=== PATIENT | male | born 1935 | race Caucasian/White ===

== ENCOUNTER → 2016-07-18 | Outpatient (CLI) | payer OTHER | LOC: BHFA 09:30 | PROVIDERS: ATTEND Internal Medicine Cardiovascular Disease | DX: I25.10 Atherosclerotic heart disease of native coronary artery without angina pectoris (principal) | CPT/HCPCS: 78452; 93017; A9500; J2785 ==

== ENCOUNTER → 2016-07-24 | Outpatient (CLI) | payer OTHER | LOC: BHFA 09:15 | PROVIDERS: ATTEND Internal Medicine Cardiovascular Disease | DX: I25.10 Atherosclerotic heart disease of native coronary artery without angina pectoris (principal); R06.00 Dyspnea, unspecified; I10 Essential (primary) hypertension ==

== ENCOUNTER 2018-01-19 15:03 | Inpatient (IN) | payer OTHER ==
--- NOTE | 2018-01-19 15:29 | EDPHY ---
H & P Stated Complaint: low O2 Time Seen by Provider: 01/19/18 15:29 HPI/ROS: CHIEF COMPLAINT: Hypoxemia, right-sided chest pain HISTORY OF PRESENT ILLNESS: The patient is referred to the emergency department for evaluation of hypoxemia, right-sided chest pain and pleuritic cough for the past 5 days. The patient denies prior history of PE or DVT. He does report a history of COPD. He denies fever. He does report a productive cough. He denies asymmetric calf pain or swelling. Past medical history is significant for chronic back pain. The patient is status post spinal fusion. The patient denies any complaints abdominal pain, vomiting or diarrhea. REVIEW OF SYSTEMS: A comprehensive 10 point review of systems is otherwise negative aside from elements mentioned in the history of present illness. Source: Patient Exam Limitations: No limitations - Personal History Current Tetanus/Diphtheria Vaccine: Yes - Medical/Surgical History Hx Asthma: No Hx Chronic Respiratory Disease: No Hx Diabetes: No Hx Cardiac Disease: No Hx Renal Disease: No Hx Cirrhosis: No Hx Alcoholism: No Hx HIV/AIDS: No Hx Splenectomy or Spleen Trauma: No Other PMH: appendectomy, hyperlipidemia, HTN - Social History Smoking Status: Former smoker - Physical Exam Exam: General Appearance: Alert, no distress Eyes: Pupils equal and round no pallor or injection ENT, Mouth: Mucous membranes moist Respiratory: Tachypnea, rhonchorous breath sounds right lung field Cardiovascular: Tachycardic Gastrointestinal: Abdomen is soft and nontender, no masses, bowel sounds normal Neurological: A&O, normal motor function, normal sensory exam, normal cranial nerves Skin: Warm and dry, no rashes Musculoskeletal: Neck is supple nontender Extremities: symmetrical, full range of motion Psychiatric: Patient is oriented X 3, there is no agitation Constitutional: Initial Vital Signs Temperature (C) 37.0 C 01/19/18 15:14 Heart Rate 101 H 01/19/18 15:14 Respiratory Rate 18 01/19/18 15:14 Blood Pressure 131/80 H 01/19/18 15:14 O2 Sat (%) 93 01/19/18 15:14 O2 Delivery Mode Nasal Cannula O2 (L/minute) 1 Allergies/Adverse Reactions: Sulfa (Sulfonamide Antibiotics) Allergy (Mild, Verified 01/19/18 15:17) dizzy Home Medications: Medication Instructions Recorded Aspirin [Aspirin 81mg (OTC)] 05/12/14 Lisinopril [Zestril 2.5 mg (*)] 05/12/14 Simvastatin [Zocor] 05/12/14 Steroid Inhaler 07/07/14 Medical Decision Making ED Course/Re-evaluation: The patient presents the ED for evaluation of several days of pleuritic chest pain and a productive cough. The patient was afebrile upon arrival. The patient was noted to be acutely hypoxemic. The patient had a dense infiltrate noted on his chest x-ray. His D-dimer was elevated. CT pulmonary angiogram demonstrates no evidence of a PE. The patient does have SIRS criteria with leukocytosis and tachycardia. He qualifies for sepsis given his pneumonia. He has no evidence of severe sepsis or septic shock. The patient had an IV established. He received blood cultures x2. The patient will be started on IV Levaquin. The patient will require admission to the hospital. Consultation was made with the hospitalist service at 5:00 p.m.. Differential Diagnosis: Differential diagnosis considered includes pulmonary embolism, pneumonia, bronchitis, sepsis, severe sepsis, septic shock Critical Care Time: Critical care time exclusive of procedures and exclusive of the PA's time was 35 minutes, performed by myself, Jaquan Bianchi MD. The patient presents to the ED with sepsis, pneumonia and hypoxemia. The patient is started on broad- spectrum antibiotics. He will be admitted to the hospital for stabilization and treatment. - Data Points Laboratory Results: Laboratory Results 01/19/18 15:35 01/19/18 15:35 01/19/18 01/19/18 01/19/18 16:15 15:48 15:45 WBC RBC Hgb POC Hgb 15.3 gm/dL gm/dL (13.7-17.5) Hct POC Hct 45 % % (40-51) MCV MCH MCHC RDW Plt Count MPV Neut % (Auto) Lymph % (Auto) [place] % (Auto) Eos % (Auto) Baso % (Auto) Nucleat RBC Rel Count Absolute Neuts (auto) Absolute Lymphs (auto) Absolute Monos (auto) Absolute Eos (auto) Absolute Basos (auto) Absolute Nucleated RBC Immature Gran % Immature Gran # RBC/WBC/PLT Morphology Platelet Estimate PT INR D-Dimer VBG Lactic Acid 1.9 mmol/L mmol/L (0.7-2.1) POC Sodium 139 mEq/L mEq/L (135-145) Sodium POC Potassium 4.2 mEq/L mEq/L (3.3-5.0) Potassium POC Chloride 98 mEq/L mEq/L (97-110) Chloride Carbon Dioxide Anion Gap POC BUN 26 mg/dL H mg/dL (7-23) BUN Creatinine POC Creatinine 1.3 mg/dL mg/dL (0.7-1.3) Estimated GFR Glucose POC Glucose 138 mg/dL H mg/dL (70-100) Calcium POC Troponin I 0.03 ng/mL ng/mL (0.00-0.08) 01/19/18 01/19/18 01/19/18 15:35 15:35 15:35 WBC 21.26 10^3/uL H 10^3/uL (3.80-9.50) RBC 4.28 10^6/uL L 10^6/uL (4.40-6.38) Hgb 13.8 g/dL g/dL (13.7-17.5) POC Hgb Hct 41.2 % % (40.0-51.0) POC Hct MCV 96.3 fL fL (81.5-99.8) MCH 32.2 pg pg (27.9-34.1) MCHC 33.5 g/dL g/dL (32.4-36.7) RDW 12.2 % % (11.5-15.2) Plt Count 404 10^3/uL H 10^3/uL (150-400) MPV 9.6 fL fL (8.7-11.7) Neut % (Auto) 83.6 % H % (39.3-74.2) Lymph % (Auto) 7.2 % L % (15.0-45.0) [place] % (Auto) 7.9 % % (4.5-13.0) Eos % (Auto) 0.2 % L % (0.6-7.6) Baso % (Auto) 0.2 % L % (0.3-1.7) Nucleat RBC Rel Count 0.0 % % (0.0-0.2) Absolute Neuts (auto) 17.77 10^3/uL H 10^3/uL (1.70-6.50) Absolute Lymphs (auto) 1.53 10^3/uL 10^3/uL (1.00-3.00) Absolute Monos (auto) 1.68 10^3/uL H 10^3/uL (0.30-0.80) Absolute Eos (auto) 0.04 10^3/uL 10^3/uL (0.03-0.40) Absolute Basos (auto) 0.04 10^3/uL 10^3/uL (0.02-0.10) Absolute Nucleated RBC 0.00 10^3/uL 10^3/uL (0-0.01) Immature Gran % 0.9 % % (0.0-1.1) Immature Gran # 0.19 10^3/uL H 10^3/uL (0.00-0.10) RBC/WBC/PLT Morphology TNP Platelet Estimate TNP PT 15.5 SEC H SEC (12.0-15.0) INR 1.21 H (0.83-1.16) D-Dimer 2.39 ug/mLFEU H ug/mLFEU (0.00-0.50) VBG Lactic Acid POC Sodium Sodium 138 mEq/L mEq/L (135-145) POC Potassium Potassium 4.4 mEq/L mEq/L (3.3-5.0) POC Chloride Chloride 99 mEq/L mEq/L (97-110) Carbon Dioxide 27 mEq/l mEq/l (22-31) Anion Gap 12 mEq/L mEq/L (8-16) POC BUN BUN 27 mg/dL H mg/dL (7-23) Creatinine 1.2 mg/dL mg/dL (0.7-1.3) POC Creatinine Estimated GFR 58 Glucose 132 mg/dL H mg/dL (70-100) POC Glucose Calcium 9.5 mg/dL mg/dL (8.5-10.4) POC Troponin I Point of Care Test Results: Chemistry 01/19/18 01/19/18 15:48 15:45 POC Sodium 139 mEq/L mEq/L (135-145) POC Potassium 4.2 mEq/L mEq/L (3.3-5.0) POC Chloride 98 mEq/L mEq/L (97-110) POC BUN 26 mg/dL H mg/dL (7-23) POC Creatinine 1.3 mg/dL mg/dL (0.7-1.3) POC Glucose 138 mg/dL H mg/dL (70-100) POC Troponin I 0.03 ng/mL ng/mL (0.00-0.08) ISTAT H&H 01/19/18 15:45 POC Hgb 15.3 gm/dL gm/dL (13.7-17.5) POC Hct 45 % % (40-51) Departure - Departure Disposition: [facility] Inpatient Acute Clinical Impression: Sepsis, Pneumonia Condition: Good Referrals: Rubens Gallegos DO [Primary Care Provider] - As per Instructions
[2018-01-19 15:54] LABS: PLATELET COUNT 404 10^3/uL (150-400)
[2018-01-19 16:04] LABS: INR 1.21 (0.83-1.16); PROTIME(PATIENT) 15.5 SEC (12.0-15.0)
[2018-01-19] MEDS ORDERED: IOPAMIDOL (ISOVUE 370) 100 ML BTL IV ONE (16:06)
[2018-01-19] MEDS ORDERED: ACETAMINOPHEN 325 MG TAB PO PRN (17:31)
[2018-01-19] MEDS ORDERED: ONDANSETRON DISINTEGRATING 4 MG TAB PO PRN (17:31)
[2018-01-19] MEDS ORDERED: ONDANSETRON 4 MG/2 ML VIAL IVP PRN (17:31)
--- NOTE | 2018-01-19 17:36 | PDGENHP ---
History and Physical - Chief Complaint SOB, Cough - History of Present Illness Freeman Mendes is a 82 yo M with a PMhx of HTN, Ulcerative Colitis who presents for cough and SOB. He reports that he started having R sided rib pain on Friday. He then started having productive cough of rust colored sputum with associated SOB. He reports R sided rib pain increased with cough and worsened since onset. He had subjective fevers earlier today. He denies chest pain, edema, lightheadedness, d/c, n/v, urinary changes. History Information - Allergies/Home Medication List Allergies/Adverse Reactions: Sulfa (Sulfonamide Antibiotics) Allergy (Mild, Verified 01/19/18 17:37) dizzy Home Medications: Balsalazide Disodium [Colazal (*)] 2,250 mg PO TID 01/19/18 [Last Taken AM DOSE] Fluticasone/Salmeter 100/50Mcg [Advair 100/50 (*)] 1 puffs IH BID 01/19/18 [ Last Taken 01/19/18] Gabapentin [Neurontin 100 MG (*)] 300 mg PO HS 01/19/18 [Last Taken Unknown] Herbals/Supplements -Info Only 1 ea PO DAILY 01/19/18 [Last Taken Unknown] Lisinopril [Zestril 10 mg (*)] 10 mg PO DAILY 01/19/18 [Last Taken 01/19/18] Multivitamins [Multivitamin (*)] 1 each PO DAILY 01/19/18 [Last Taken Unknown] Ranitidine HCl 150 mg PO DAILY 01/19/18 [Last Taken 01/19/18] Tamsulosin HCl [Flomax 0.4 MG (*)] 0.4 mg PO HS 01/19/18 [Last Taken 01/18/18] Vasculera 1 tab PO DAILY 01/19/18 [Last Taken Unknown] I have personally reviewed and updated: family history, medical history, social history, surgical history - Past Medical History hypertension - Surgical History Additional surgical history: Back surgery - Family History Additional family history: Parents - Social History Smoking Status: Former smoker Review of Systems Review of Systems: ROS: 10pt was reviewed & negative except for what was stated in HPI & below Physical Exam Physical Exam: Temp Pulse Resp BP Pulse Ox 36.8 C 99 19 139/86 H 93 01/19/18 17:30 01/19/18 17:30 01/19/18 17:30 01/19/18 17:30 01/19/18 17:30 O2 (L/minute) 4 Constitutional: no apparent distress Eyes: PERRL Ears, Nose, Mouth, Throat: moist mucous membranes Cardiovascular: tachycardia Respiratory: no respiratory distress, rhonchi Gastrointestinal: normoactive bowel sounds, soft, non-tender abdomen Genitourinary: no bladder tenderness Skin: warm Musculoskeletal: pain with ROM Neurologic: AAOx3 Psychiatric: interacting appropriately Lymph, Heme, Immunologic: No ecchymoses, No petechiae Lab Data & Imaging Review 01/19/18 15:35 01/19/18 15:35 WBC 21.26 10^3/uL (3.80-9.50) H 01/19/18 15:35 RBC 4.28 10^6/uL (4.40-6.38) L 01/19/18 15:35 Hgb 13.8 g/dL (13.7-17.5) 01/19/18 15:35 POC Hgb 15.3 gm/dL (13.7-17.5) 01/19/18 15:45 Hct 41.2 % (40.0-51.0) 01/19/18 15:35 POC Hct 45 % (40-51) 01/19/18 15:45 MCV 96.3 fL (81.5-99.8) 01/19/18 15:35 MCH 32.2 pg (27.9-34.1) 01/19/18 15:35 MCHC 33.5 g/dL (32.4-36.7) 01/19/18 15:35 RDW 12.2 % (11.5-15.2) 01/19/18 15:35 Plt Count 404 10^3/uL (150-400) H 01/19/18 15:35 MPV 9.6 fL (8.7-11.7) 01/19/18 15:35 Neut % (Auto) 83.6 % (39.3-74.2) H 01/19/18 15:35 Lymph % (Auto) 7.2 % (15.0-45.0) L 01/19/18 15:35 [place] % (Auto) 7.9 % (4.5-13.0) 01/19/18 15:35 Eos % (Auto) 0.2 % (0.6-7.6) L 01/19/18 15:35 Baso % (Auto) 0.2 % (0.3-1.7) L 01/19/18 15:35 Nucleat RBC Rel Count 0.0 % (0.0-0.2) 01/19/18 15:35 Absolute Neuts (auto) 17.77 10^3/uL (1.70-6.50) H 01/19/18 15:35 Absolute Lymphs (auto) 1.53 10^3/uL (1.00-3.00) 01/19/18 15:35 Absolute Monos (auto) 1.68 10^3/uL (0.30-0.80) H 01/19/18 15:35 Absolute Eos (auto) 0.04 10^3/uL (0.03-0.40) 01/19/18 15:35 Absolute Basos (auto) 0.04 10^3/uL (0.02-0.10) 01/19/18 15:35 Absolute Nucleated RBC 0.00 10^3/uL (0-0.01) 01/19/18 15:35 Immature Gran % 0.9 % (0.0-1.1) 01/19/18 15:35 Immature Gran # 0.19 10^3/uL (0.00-0.10) H 01/19/18 15:35 RBC/WBC/PLT Morphology TNP 01/19/18 15:35 Platelet Estimate TNP 01/19/18 15:35 PT 15.5 SEC (12.0-15.0) H 01/19/18 15:35 INR 1.21 (0.83-1.16) H 01/19/18 15:35 D-Dimer 2.39 ug/mLFEU (0.00-0.50) H 01/19/18 15:35 VBG Lactic Acid 1.9 mmol/L (0.7-2.1) 01/19/18 16:15 POC Sodium 139 mEq/L (135-145) 01/19/18 15:45 Sodium 138 mEq/L (135-145) 01/19/18 15:35 POC Potassium 4.2 mEq/L (3.3-5.0) 01/19/18 15:45 Potassium 4.4 mEq/L (3.3-5.0) 01/19/18 15:35 POC Chloride 98 mEq/L (97-110) 01/19/18 15:45 Chloride 99 mEq/L (97-110) 01/19/18 15:35 Carbon Dioxide 27 mEq/l (22-31) 01/19/18 15:35 Anion Gap 12 mEq/L (8-16) 01/19/18 15:35 POC BUN 26 mg/dL (7-23) H 01/19/18 15:45 BUN 27 mg/dL (7-23) H 01/19/18 15:35 Creatinine 1.2 mg/dL (0.7-1.3) 01/19/18 15:35 POC Creatinine 1.3 mg/dL (0.7-1.3) 01/19/18 15:45 Estimated GFR 58 01/19/18 15:35 Glucose 132 mg/dL (70-100) H 01/19/18 15:35 POC Glucose 138 mg/dL (70-100) H 01/19/18 15:45 Calcium 9.5 mg/dL (8.5-10.4) 01/19/18 15:35 POC Troponin I 0.03 ng/mL (0.00-0.08) 01/19/18 15:48 Visualized and Interpreted Chest x-ray results: Yes Chest X-Ray results: infiltrate Assessment & Plan Assessment: Sepsis (Acute) - WBC 21, HR 100's on admission - CXR, CT Chest show airspace opacity in RUL - LA 1.9 on admission - Will give 1L NS initially, if no improvement in HR will give 30 cc/ml - S/p IV Levaquin in ED, will continue for now Bacterial PNA - Seen on CXR, CT - Continue Levaquin IV as above - Will order sputum culture - Transition to PO abx when improvement of sepsis COPD - Continue home Advair, Albuterol PRN Chronic LBP - Titrating off of Gabapentin, last dose 300 mg tonight - Tylenol prn for pain HTN - Continue home Lisinopril Ulcerative Colitis - Continue home Balsalazide BPH - Continue home Tamsulosin FEN: 1L IVF ordered, more PRN Ppx: SubQ Heparin Code: FULL Dispo: Admit to Medicine
[2018-01-19] MEDS ORDERED: NS 1,000 ML IV SCH (17:45)
--- NOTE | 2018-01-19 17:47 | CPEKG ---
Test Reason : OPEN Blood Pressure : / mmHG Vent. Rate : 092 BPM Atrial Rate : 093 BPM P-R Int : 163 ms QRS Dur : 078 ms QT Int : 338 ms P-R-T Axes : 053 -01 040 degrees QTc Int : 419 ms Normal sinus rhythm Atrial premature complexes Confirmed by Jaquan Bianchi ([id number]) on 01/19/2018 5:46:08 PM Referred By: Confirmed By:Jaquan Bianchi
[2018-01-19] MEDS ORDERED: GABAPENTIN 300 MG CAP PO SCH (21:00)
[2018-01-19] MEDS: FLUTICASONE/SALMETER 100/50MCG DISKUS IH SCH (21:24)
[2018-01-19] MEDS: BALSALAZIDE DISODIUM 750 MG CAP PO SCH (22:09)
[2018-01-19] MEDS: ASPIRIN 81 MG CHEWABLE TAB PO SCH (22:09)
[2018-01-19] MEDS: TAMSULOSIN HCL 0.4 MG CAP PO SCH (22:10)
[2018-01-19] MEDS: HEPARIN 5,000 UNIT/0.5 ML INJ SC SCH (22:10)
[2018-01-19] MEDS: MELATONIN 3 MG TAB PO SCH (22:39)
[2018-01-20 05:01] LABS: PLATELET COUNT 324 10^3/uL (150-400)
[2018-01-20] MEDS: HEPARIN 5,000 UNIT/0.5 ML INJ SC SCH (06:19)
[2018-01-20] MEDS ORDERED: levOFLOXACIN 500 MG/DEXTROSE 100 ML IV SCH (09:00)
[2018-01-20] MEDS: FAMOTIDINE 20 MG TAB PO SCH (09:10)
[2018-01-20] MEDS: LISINOPRIL 10 MG TAB PO SCH (09:11)
[2018-01-20] MEDS: BALSALAZIDE DISODIUM 750 MG CAP PO SCH ×3 (09:12→21:20)
[2018-01-20] MEDS: PSYLLIUM METAMUCIL 1 PKT PO SCH (09:14)
[2018-01-20] MEDS: FLUTICASONE/SALMETER 100/50MCG DISKUS IH SCH ×2 (09:16→21:19)
--- NOTE | 2018-01-20 09:22 | HOSPPROG ---
Hospitalist Progress Note Assessment/Plan: #Sepsis: from PNA, leukocytosis improved. Neg resp PCR #CAP: Levaquin, cough suppressants #COPD: nebs #HTN: Lisinopril #Chronic LBP #BPH #Weakness: PT/OT #DVT ppx: lovenox #Disp: inpatient admission for abx, PT Subjective: not feeling great. Productive cough still Objective: Vital Signs Temp Pulse Resp BP Pulse Ox 37.1 C 93 24 H 139/73 H 85 L 01/20/18 08:09 01/20/18 08:09 01/20/18 08:09 01/20/18 09:11 01/20/18 08:09 Microbiology 01/20/18 02:56 - Final Sputum, Expectorated 01/19/18 18:30 - Final Sputum, Expectorated Sputum Culture - Final Laboratory Results 01/20/18 04:32 01/19/18 01/20/18 01/21/18 05:59 05:59 05:59 Intake Total 1500 Output Total 400 150 Balance 1100 -150 PT 15.5 SEC (12.0-15.0) H 01/19/18 15:35 INR 1.21 (0.83-1.16) H 01/19/18 15:35 - Physical Exam Constitutional: other (ill-appearing. Mild diaphoresis) Ears, Nose, Mouth, Throat: moist mucous membranes Cardiovascular: regular rate and rhythym Respiratory: no respiratory distress, rhonchi Gastrointestinal: normoactive bowel sounds Genitourinary: no bladder fullness Skin: warm Musculoskeletal: generalized weakness Neurologic: sensation intact bilaterally, CN II-XII Intact Psychiatric: interacting appropriately ICD10 Worksheet Patient Problems: Problems Problem Status Onset Chronic Disease Mgmt/Transitional Care Acute Pneumonia Acute Sepsis Acute
--- NOTE | 2018-01-20 10:22 | PDMN ---
Medical Necessity Medical necessity: Pt meets IP criteria per MD & MCG M-160; est los >2 mn for eval/tx of acute sepsis w/tachycardia, elevated WBC & bacterial pneumonia; requiring further monitoring, IVFs, IV abx & supportive care; comorbid advanced age, COPD, HTN; per H&P & order 01/19/18
[2018-01-20] MEDS ORDERED: GUAIFENESIN/DM 10 ML UDCUP PO PRN (10:48)
[2018-01-20] MEDS ORDERED: IPRATROPIUM/ALBUTEROL 3 ML DEYVIAL IH PRN (10:51)
--- NOTE | 2018-01-20 13:44 | ASMTCMCOM ---
CM Note CM Note Notes: 82yr old male admitted for SOB, Cough. He has a Hx of HTN, Ulcerative colitis, Chronic low back pain, and a former smoker. Patient being tx for Sepsis, PNA, COPD. Patient lives alone in [place]. PT recommending SNF at this time. Date Signed: 01/20/2018 01:43 PM Electronically Signed By:Ramya Olivares LCSW
[2018-01-20] MEDS: ENOXAPARIN 40 MG/0.4 ML SYR SC SCH (17:37)
[2018-01-20] MEDS: ASPIRIN 81 MG CHEWABLE TAB PO SCH (21:19)
[2018-01-20] MEDS: MELATONIN 3 MG TAB PO SCH (21:20)
[2018-01-20] MEDS: TAMSULOSIN HCL 0.4 MG CAP PO SCH (21:20)
[2018-01-21 08:40] VITALS: BP 120/66
[2018-01-21] MEDS: FAMOTIDINE 20 MG TAB PO SCH (08:41)
[2018-01-21] MEDS: LISINOPRIL 10 MG TAB PO SCH (08:42)
[2018-01-21] MEDS: BALSALAZIDE DISODIUM 750 MG CAP PO SCH (08:43)
[2018-01-21] MEDS: PSYLLIUM METAMUCIL 1 PKT PO SCH (08:44)
[2018-01-21] MEDS: ENOXAPARIN 40 MG/0.4 ML SYR SC SCH (08:46)
[2018-01-21] MEDS: FLUTICASONE/SALMETER 100/50MCG DISKUS IH SCH (09:31)
--- NOTE | 2018-01-21 12:24 | PDHOMEO2F ---
Home Oxygen Face to Face Home Orders: I certify that a physician or a nurse practitioner or physician's assistant prosecuting attorney has had a [id number] encounter with this patient on the date of this order due to the diagnosis listed, which relates to the primary reason the patient requires home oxygen. Alternative treatments have been tried, or considered, and deemed ineffective. It is anticipated that supplemental oxygen will result in improvement with treatment. Home oxygen qualifying diagnosis: Pneumonia Home oxygen secondary diagnosis: Acute hypoxic resp failure SpO2 on room air (%): 80 Frequency of home oxygen needed: continuous Home oxygen liters per minute: 2 Home oxygen delivery device: nasal cannula Concentrator: Yes E-tanks for mobility and back up: Yes If ordering portable O2, is the patient mobile in the home?: Yes I certify that, based on these findings, the home oxygen is medically necessary for this patient for the following length of time. Length of time home oxygen needed: 99 years
--- NOTE | 2018-01-21 14:03 | GDS ---
DISCHARGE DIAGNOSES: 1. Community-acquired pneumonia. 2. Sepsis. 3. Chronic obstructive pulmonary disease. 4. Chronic lower back pain. 5. Hypertension. 6. History of ulcerative colitis. 7. BPH. 8. Acute hypoxic respiratory failure. HISTORY OF PRESENT ILLNESS: A pleasant 82-year-old male with hypertension, ulcerative colitis, prese nted with cough and shortness of breath. Noted right-sided rib pain on Friday and then a productive cough of rust-colored sputum. [place] short of breath. Had subjective fevers. HOSPITAL COURSE BY PROBLEM: 1. Sepsis: Elevated white count, tachycardic, and pneumonia on x-ray. He was treated with IV Levaq uin with improvement in symptoms. He will be discharged on this for a total 5 days antibiotics. 2. Bacterial pneumonia: Again, plan for Levaquin for 2 more days. 3. COPD: No evidence of exacerbation. 4. Chronic low back pain: He has been titrating off gabapentin. This has been discontinued. 5. Hypertension: Lisinopril. 6. Ulcerative colitis: Home medications. 7. BPH: Tamsulosin. 8. Acute hypoxic respiratory failure: This was evidenced by increased respiration rate to 20s and O 2 saturation of 80%. He will be discharged on oxygen and follow up with his primary care physician. DISPOSITION: Patient is stable for discharge today. Discharge home with home PT/OT. PHYSICAL EXAM: VITAL SIGNS: Temperature 36.5, blood pressure is 120/66, heart rate is in the 90s, r espirations 16, 80% on room air, 93% on 2 L. GENERAL: Much improved. Has brighter color. HEENT: PERRLA. Moist mucous membranes. CV: Has regular rate and rhythm. LUNGS: Clear. No wheezes. ABD OMEN: Soft, nontender, nondistended. Positive bowel sounds. : No [place]. MUSCULOSKELETAL: 5/5 upper and lower extremity strength. NEURO: 2-12 intact. PSYCH: Alert and oriented x3. TIME SPENT ON DISCHARGE: Greater than 30 minutes, counseling patient on medications, PT, and coordin ating followup. /[id number]/MODL
--- NOTE | 2018-01-21 15:28 | ASMTCMCOM ---
CM Note CM Note Notes: Patient seen in rounds. He will dc to home with oxygen and HHC PT and OT with [facility]. Referral sent. Verbally accepted via phone confirmation. Physical address confirmed, CM available should needs arise. Plan: Home with HHC Date Signed: 01/21/2018 03:26 PM Electronically Signed By:Aditi Daley RN
--- NOTE | 2018-01-21 15:52 | PDIAF ---
- Diagnosis Diagnosis: PNA Code Status: Full Code - Medication Management Discharge Medications: Medications to Continue on Transfer Aspirin [Aspirin 81mg (*)] 81 mg PO HS 01/19/18 [Last Taken Unknown] Balsalazide Disodium [Colazal (*)] 2,250 mg PO TID 01/19/18 [Last Taken AM DOSE] Fluticasone/Salmeter 100/50Mcg [Advair 100/50 (*)] 1 puffs IH BID 01/19/18 [ Last Taken 01/19/18] Gabapentin [Neurontin 100 MG (*)] 300 mg PO HS 01/19/18 [Last Taken Unknown] Herbals/Supplements -Info Only 1 ea PO DAILY 01/19/18 [Last Taken Unknown] Lisinopril [Zestril 10 mg (*)] 10 mg PO DAILY 01/19/18 [Last Taken 01/19/18] Multivitamins [Multivitamin (*)] 1 each PO DAILY 01/19/18 [Last Taken Unknown] Ranitidine HCl 75 mg PO DAILY 01/19/18 [Last Taken 01/19/18] Tamsulosin HCl [Flomax 0.4 MG (*)] 0.4 mg PO HS 01/19/18 [Last Taken 01/18/18] Vasculera 1 tab PO DAILY 01/19/18 [Last Taken Unknown] guaiFENesin/DEXTROMETHORPHAN [Robitussin Dm Oral Liquid (*)] 10 ml PO Q4HRS PRN #100 ml 01/21/18 [Last Taken Unknown] levOFLOXACIN [levAQUIN (*)] 750 mg PO DAILY #2 tab 01/21/18 [Last Taken Unknown] Discharge Medications: Refer to the Discharge Home Medication list for PRN reason. - Orders Services needed: Home Care, Physical Therapy, Occupational Therapy Home Care Face to Face: I certify that this patient was under my care and that I had the required [id number] encounter meeting the encounter requirements on the discharge day. My findings support the fact that the patient is homebound as defined in Home Care Face to Face Continued: CMS Chapter 7 Medicare Benefits Manual 30.1.1 , The condition of the patient is such that there exists a normal inability to leave home and consequently, leaving home would require a considerable and taxing effort. Isolation Type: None Diet Recommendation: no restrictions on diet Diet Texture: Regular Texture Diet - Follow Up Care Current Providers and Referrals: Rubens Gallegos DO [Primary Care Provider] - As per Instructions
--- NOTE | 2018-01-21 16:00 | ASMTLACE ---
LACE Length of stay for Answers: 1 day current admission Acuity / Level of Answers: Yes Care: Did the patient have an inpatient admission? Comorbidities - select Answers: Chronic pulmonary disease all that apply # of Emergency department Answers: 1-2 visits in the last 6 months Score: 7 Date Signed: 01/21/2018 03:59 PM Electronically Signed By:Aditi Daley RN
--- NOTE | 2018-01-22 08:43 | ASDISCHSUM ---
Discharge Information Plan Status:Home with Home Health Medically Cleared to Leave:01/21/2018 Discharge Date:01/21/2018 05:15 PM CM D/C Disposition:Home Health Service ADT D/C Disposition:Home Health Service Projected Discharge Date:01/21/2018 11:00 AM Transportation at D/C:Family Discharge Delay Reason: Follow-Up Date:01/21/2018 11:00 AM Discharge Slot: Final Diagnosis:SOB, Cough Placement Information Referral Type:*Home Health Care Services Referral ID:[id number] Provider Name:[facility] Address 1:[facility] Address 2: City:[place] Selection Factors: State:[place] Patient Contact Information Contact Name:JOSE ARMANDO Relationship:Sister Address:[address] [facility] [address] Work Phone: City:[place] Alternate Phone: State/Zip Code:[place] [address] Email: Financial Information Financial Class:Medicare Primary Plan Desc:MEDICARE INPATIENT Primary Plan Number:[id number] Secondary Plan Desc:DELIA Secondary Plan Number:[id number] Assessment Information LACE LACE Length of stay for Answers: 1 day current admission Acuity / Level of Answers: Yes Care: Did the patient have an inpatient admission? Comorbidities - select Answers: Chronic pulmonary disease all that apply # of Emergency department Answers: 1-2 visits in the last 6 months Score: 7 Date Signed: 01/21/2018 03:59 PM Electronically Signed By:Aditi Daley RN [facility] CM Progress Note CM Note CM Note Notes: 82yr old male admitted for SOB, Cough. He has a Hx of HTN, Ulcerative colitis, Chronic low back pain, and a former smoker. Patient being tx for Sepsis, PNA, COPD. Patient lives alone in [place]. PT recommending SNF at this time. Date Signed: 01/20/2018 01:43 PM Electronically Signed By:Ramya Olivares LCSW [facility] CM Progress Note CM Note CM Note Notes: Patient seen in rounds. He will dc to home with oxygen and HHC PT and OT with [facility]. Referral sent. Verbally accepted via phone confirmation. Physical address confirmed, CM available should needs arise. Plan: Home with HHC Date Signed: 01/21/2018 03:26 PM Electronically Signed By:Aditi Daley RN Intervention Information
== END 2018-01-21 17:15 | disposition home health service (06) | DRG 871 ==
LOC: F1N 19:38
PROVIDERS: ADMIT Internal Medicine; ATTEND Internal Medicine
DX: A41.9 Sepsis, unspecified organism (principal); J15.9 Unspecified bacterial pneumonia; J96.01 Acute respiratory failure with hypoxia; J44.9 Chronic obstructive pulmonary disease, unspecified; M54.5 Low back pain; I10 Essential (primary) hypertension; K51.90 Ulcerative colitis, unspecified, without complications; N40.0 Benign prostatic hyperplasia without lower urinary tract symptoms; E78.5 Hyperlipidemia, unspecified
CPT/HCPCS: 82435-PO; 82565-PO; 82947-PO; 84132-PO; 84295-PO; 84484-PO; 84520-PO; 85014-PO; 87449-90; 96365; 96366; 97162-GP; 97165-GO; 97530-GO; 97530-GP; 97535-GO; G8978-GP-CJ; G8979-GP-CI; G8987-GO-CJ; G8988-GO-CI; J1644; J1650; J1956; Q9967

== ENCOUNTER 2018-01-26 05:34 | Inpatient (IN) | payer OTHER ==
[2018-01-26] MEDS ORDERED: NS 1,000 ML IV ONE ×2 (05:35→07:21)
[2018-01-26] MEDS ORDERED: IPRATROPIUM/ALBUTEROL 3 ML DEYVIAL IH ONE (05:35)
--- NOTE | 2018-01-26 05:39 | EDPHY ---
H & P Time Seen by Provider: 01/26/18 05:36 HPI/ROS: HPI CHIEF COMPLAINT: Generalized weakness, worsening shortness of breath, worsening cough. Of note patient here with a fever to 102. HISTORY OF PRESENT ILLNESS: 82-year-old male, presents emergency room with worsening shortness of breath, generalized weakness, recently diagnosed with community-acquired pneumonia and hospitalized. Received IV Levaquin. Patient has a history of COPD oxygen dependent, hypertension, ulcer colitis BPH, currently on Levaquin. Called 911 this evening for worsening shortness of breath, generalized weakness. Past Medical History: History of COPD, oxygen dependent, hypertension, recent sepsis admission, recent pneumonia, AFib Past Surgical History: Denies recent surgery Social History: Denies drugs alcohol tobacco. Oxygen dependent 3 L. Family History: Noncontributory ROS REVIEW OF SYSTEMS: 10 Systems were reviewed and negative with the exception of the elements mentioned in the history of present illness. Exam Constitutional elderly, frail, nontoxic triage nursing summary reviewed, vital signs reviewed, awake/alert. Tachycardic to 120s, febrile to 102. Eyes normal conjunctivae and sclera, EOMI, PERRLA. HENT normal inspection, atraumatic, moist mucus membranes, no epistaxis, neck supple/ no meningismus, no raccoon eyes. Respiratory decreased breath sounds bilaterally, crackles right lung base, wheezing faint, mildly labored Cardiovascular tachycardic, regular rhythm, no murmur, no edema, distal pulses normal. Gastrointestinal soft, non-tender, no rebound, no guarding, normal bowel sounds, no distension, no pulsatile mass. Genitourinary no CVA tenderness. Musculoskeletal no midline vertebral tenderness, full range of motion, no calf swelling, no tenderness of extremities, no meningismus, good pulses, neurovascularly intact. Skin pink, warm, & dry, no rash, skin atraumatic. Neurologic awake, alert and oriented x 3, AAOx3, moves all 4 extremities equally, motor intact, sensory intact, CN II-XII intact, normal cerebellar, normal vision, normal speech. Psychiatric normal mood/affect. Heme/Lymph/Immune no lymphadenopathy. Differential Diagnosis: Includes but is not limited to in a particular order worsening pneumonia, COPD exacerbation, reactive airway disease, generalized weakness, sepsis, electrolyte disturbance. Medical Decision Making: Plan for this patient IV establishment blood draw, full medicare nurse, supplemental oxygen, DuoNeb breathing treatment, repeat chest x-ray. Given the patient's age, generalized weakness, worsening shortness of breath most likely need readmission to the hospital. Re-evaluation: Patient's room air sat 70% here. Patient on 5 L nasal cannula. EKG interpretation by me on record in [facility] system. Impression time of EKG 5:57 a.m., sinus tach 113, without any signs of acute ischemia. 0621; patient's x-ray reviewed shows a significant right-sided pneumonia dense pneumonia. Additionally the patient has elevated white count a left shift with a bandemia. Additionally the patient has tachycardia, fever, hypoxia Patient will need to be admitted to the step-down unit for close monitoring. Initial room air saturation 70%. Lactic acid less than 2. I have brought is antibiotics including IV vancomycin IV Zosyn. Source: Patient, EMS - Medical/Surgical History Hx Asthma: No Hx Chronic Respiratory Disease: No Hx Diabetes: No Hx Cardiac Disease: No Hx Renal Disease: No Hx Cirrhosis: No Hx Alcoholism: No Hx HIV/AIDS: No Hx Splenectomy or Spleen Trauma: No Other PMH: appendectomy, hyperlipidemia, HTN, ulcerative proctitis, stage 1 kidney disease, spinal fusion - Social History Smoking Status: Former smoker Constitutional: Initial Vital Signs Temperature (C) 39.4 C H 01/26/18 05:35 Heart Rate 115 H 01/26/18 05:35 Respiratory Rate 30 H 01/26/18 05:35 Blood Pressure 144/87 H 01/26/18 05:35 O2 Sat (%) 70 L 01/26/18 05:35 O2 Delivery Mode Nasal Cannula O2 (L/minute) 5 Allergies/Adverse Reactions: Sulfa (Sulfonamide Antibiotics) Allergy (Mild, Verified 01/26/18 06:03) dizzy Home Medications: Medication Instructions Recorded Aspirin [Aspirin 81mg (*)] 81 mg PO HS 01/19/18 Balsalazide Disodium [Colazal (*)] 2,250 mg PO TID 01/19/18 Fluticasone/Salmeter 100/50Mcg 1 puffs IH BID 01/19/18 [Advair 100/50 (*)] Herbals/Supplements -Info Only 1 ea PO DAILY 01/19/18 Lisinopril [Zestril 10 mg (*)] 10 mg PO DAILY 01/19/18 Multivitamins [Multivitamin (*)] 1 each PO DAILY 01/19/18 Ranitidine HCl 75 mg PO DAILY 01/19/18 Tamsulosin HCl [Flomax 0.4 MG (*)] 0.4 mg PO HS 01/19/18 Vasculera 1 tab PO DAILY 01/19/18 Medical Decision Making - Data Points Laboratory Results: Laboratory Results 01/26/18 05:00 01/26/18 05:00 Medications Given: Acetaminophen (Tylenol) 650 mg PO Q4HRS PRN PRN Reason: Pain, Mild/Fever, Can Take PO Stop: 07/25/18 06:19 Last Admin: 01/26/18 20:48 Dose: 650 mg Albuterol/Ipratropium (Duoneb) 3 ml IH Q6HRS [facility] Stop: 07/25/18 11:59 Last Admin: 01/26/18 17:51 Dose: Not Given Aspirin (Aspirin) 81 mg PO HS [facility] Stop: 07/25/18 20:59 Last Admin: 01/26/18 20:48 Dose: 81 mg Balsalazide (Colazal) 2,250 mg PO TID [facility] Stop: 07/25/18 15:59 Last Admin: 01/26/18 20:49 Dose: 2,250 mg Enoxaparin Sodium (Lovenox) 40 mg SC DAILY [facility] Stop: 07/25/18 08:59 Last Admin: 01/26/18 08:45 Dose: 40 mg Piperacillin/Tazobactam/Dextrose (Zosyn 3.375 Gm (Premix)) 50 mls @ 100 mls/hr IV Q6HRS [place] PRN Reason: Protocol Stop: 02/25/18 11:59 Last Admin: 01/26/18 17:33 Dose: 50 mls Tamsulosin HCl (Flomax) 0.4 mg PO HS [facility] Stop: 07/25/18 20:59 Last Admin: 01/26/18 20:49 Dose: 0.4 mg Discontinued Medications Acetaminophen (Tylenol) 1,000 mg PO EDNOW ONE Stop: 01/26/18 05:44 Last Admin: 01/26/18 05:45 Dose: 1,000 mg Albuterol/Ipratropium (Duoneb) 3 ml IH EDNOW ONE Stop: 01/26/18 05:36 Last Admin: 01/26/18 06:15 Dose: 3 ml Sodium Chloride (Ns) 1,000 mls @ 0 mls/hr IV ONCE ONE; Wide [place] PRN Reason: Protocol Stop: 01/26/18 05:36 Last Admin: 01/26/18 05:45 Dose: 1,000 mls Levofloxacin/Dextrose (Levaquin 750 Mg (Premix)) 150 mls @ 100 mls/hr IV EDNOW ONE PRN Reason: Protocol Stop: 01/26/18 07:06 Last Admin: 01/26/18 06:15 Dose: 150 mls Vancomycin/Sodium Chloride (Vancomycin 1 Gm (Premix)) 250 mls @ 250 mls/hr IV EDNOW ONE PRN Reason: Protocol Stop: 01/26/18 07:02 Last Admin: 01/26/18 06:52 Dose: 250 mls Piperacillin/Tazobactam/Dextrose (Zosyn (Premix)) 100 mls @ 200 mls/hr IV EDNOW ONE PRN Reason: Protocol Stop: 01/26/18 06:32 Last Admin: 01/26/18 06:52 Dose: 100 mls Sodium Chloride (Ns) 1,000 mls @ 0 mls/hr IV ONCE ONE PRN Reason: Wide Open Stop: 01/26/18 07:22 Last Admin: 01/26/18 08:24 Dose: Not Given Ibuprofen (Motrin) 800 mg PO EDNOW ONE Stop: 01/26/18 05:44 Last Admin: 01/26/18 05:45 Dose: 800 mg Point of Care Test Results: Chemistry 01/26/18 05:46 POC Troponin I 0.02 ng/mL ng/mL (0.00-0.08) Departure - Departure Disposition: [facility] Inpatient Acute Clinical Impression: Hypoxia, Acute respiratory failure with hypoxia Pneumonia Qualifiers: Pneumonia type: due to unspecified organism Laterality: right Lung location: middle lobe of lung Qualified Code(s): J18.1 - Lobar pneumonia, unspecified organism Condition: Fair
[2018-01-26] MEDS ORDERED: ACETAMINOPHEN 500 MG TAB PO ONE (05:43)
[2018-01-26] MEDS ORDERED: IBUPROFEN 800 MG TAB PO ONE (05:43)
[2018-01-26 05:51] LABS: PLATELET COUNT 515 10^3/uL (150-400)
[2018-01-26] MEDS ORDERED: PIPERACILLIN/TAZO 4.5 GM/DEX 100 ML IV ONE (06:03)
[2018-01-26] MEDS ORDERED: VANCOMYCIN HCL/NORMAL SALINE 250 ML IV ONE (06:03)
[2018-01-26] MEDS ORDERED: ONDANSETRON 4 MG/2 ML VIAL IVP PRN (06:20)
[2018-01-26] MEDS ORDERED: ONDANSETRON DISINTEGRATING 4 MG TAB PO PRN (06:20)
--- NOTE | 2018-01-26 07:08 | PDGENHP ---
History and Physical - Chief Complaint Urinary frequency, fatigue - History of Present Illness 82 yo M w/ hx of COPD, HTN, and recent admission for treatment of CAP presents with hypoxia, fever, weakness, and urinary frequency. Patient was discharged on 01/21 after treatment of pneumonia. He completed a 5 day course of levofloxacin for this and felt somewhat improved. He was discharged with 3 L/min O2 via NC. He did not routinely wear O2 prior to this. Since discharge, he has felt weak and has had a increase urinary frequency and incontinence. This has kept him from sleeping. In addition, his O2 device malfunctioned last night and he was severely hypoxic in the 60-70% range. Upon arrival to the ED he was noted be febrile, tachypneic, and tachycardic. He feels mildly improved now after fluids and breathing treatments. Case discussed with ED physician Dr. Perez; records reviewed in EMR including most recent DC summary by Dr. Marin from 01/21/18. History Information - Allergies/Home Medication List Allergies/Adverse Reactions: Sulfa (Sulfonamide Antibiotics) Allergy (Mild, Verified 01/26/18 06:03) dizzy Home Medications: Aspirin [Aspirin 81mg (*)] 81 mg PO HS 01/19/18 [Last Taken Unknown] Balsalazide Disodium [Colazal (*)] 2,250 mg PO TID 01/19/18 [Last Taken AM DOSE] Fluticasone/Salmeter 100/50Mcg [Advair 100/50 (*)] 1 puffs IH BID 01/19/18 [ Last Taken 01/19/18] Herbals/Supplements -Info Only 1 ea PO DAILY 01/19/18 [Last Taken Unknown] Lisinopril [Zestril 10 mg (*)] 10 mg PO DAILY 01/19/18 [Last Taken 01/19/18] Multivitamins [Multivitamin (*)] 1 each PO DAILY 01/19/18 [Last Taken Unknown] Ranitidine HCl 75 mg PO DAILY 01/19/18 [Last Taken 01/19/18] Tamsulosin HCl [Flomax 0.4 MG (*)] 0.4 mg PO HS 01/19/18 [Last Taken 01/18/18] Vasculera 1 tab PO DAILY 01/19/18 [Last Taken Unknown] I have personally reviewed and updated: family history, medical history - Past Medical History COPD, hypertension - Surgical History Additional surgical history: Back surgery - Family History Additional family history: Parents - Social History Smoking Status: Former smoker Review of Systems Review of Systems: ROS: 10pt was reviewed & negative except for what was stated in HPI & below Physical Exam Physical Exam: Temp Pulse Resp BP Pulse Ox 37.7 C 105 H 24 H 124/72 H 96 01/26/18 06:28 01/26/18 06:28 01/26/18 06:28 01/26/18 06:28 01/26/18 06:28 O2 (L/minute) 5 Constitutional: chronically ill appearing, uncomfortable Eyes: PERRL, EOMI Ears, Nose, Mouth, Throat: moist mucous membranes, no oral mucosal ulcers Cardiovascular: no murmur, rub, or gallop, tachycardia Respiratory: reduced air movement, expiratory wheeze (Mild), respiratory distress Gastrointestinal: normoactive bowel sounds, soft, non-tender abdomen, distension Skin: warm, normal color Musculoskeletal: full muscle strength, no muscle tenderness Neurologic: AAOx3, CN II-XII Intact Psychiatric: interacting appropriately, not anxious Lab Data & Imaging Review 01/26/18 05:00 01/26/18 05:00 WBC 23.88 10^3/uL (3.80-9.50) H 01/26/18 05:00 RBC 4.10 10^6/uL (4.40-6.38) L 01/26/18 05:00 Hgb 13.1 g/dL (13.7-17.5) L 01/26/18 05:00 Hct 38.3 % (40.0-51.0) L 01/26/18 05:00 MCV 93.4 fL (81.5-99.8) 01/26/18 05:00 MCH 32.0 pg (27.9-34.1) 01/26/18 05:00 MCHC 34.2 g/dL (32.4-36.7) 01/26/18 05:00 RDW 12.4 % (11.5-15.2) 01/26/18 05:00 Plt Count 515 10^3/uL (150-400) H 01/26/18 05:00 MPV 9.3 fL (8.7-11.7) 01/26/18 05:00 Neut % (Auto) Not Reported 01/26/18 05:00 Lymph % (Auto) Not Reported 01/26/18 05:00 Greer % (Auto) Not Reported 01/26/18 05:00 Eos % (Auto) Not Reported 01/26/18 05:00 Baso % (Auto) Not Reported 01/26/18 05:00 Nucleat RBC Rel Count Not Reported 01/26/18 05:00 Absolute Neuts (auto) Not Reported 01/26/18 05:00 Absolute Lymphs (auto) Not Reported 01/26/18 05:00 Absolute Monos (auto) Not Reported 01/26/18 05:00 Absolute Eos (auto) Not Reported 01/26/18 05:00 Absolute Basos (auto) Not Reported 01/26/18 05:00 Absolute Nucleated RBC Not Reported 01/26/18 05:00 Immature Gran % Not Reported 01/26/18 05:00 Seg Neutrophils % 91.0 % 01/26/18 05:00 Band Neutrophils % 3.0 % 01/26/18 05:00 Lymphocytes % 1.0 % 01/26/18 05:00 Monocytes % 5.0 % 01/26/18 05:00 Eosinophils % 0.0 % 01/26/18 05:00 Basophils % 0.0 % 01/26/18 05:00 Metamyelocytes % 0.0 % 01/26/18 05:00 Myelocytes % 0.0 % 01/26/18 05:00 Promyelocytes % 0.0 % 01/26/18 05:00 Blast Cells % 0.0 % 01/26/18 05:00 Immature Gran # Not Reported 01/26/18 05:00 Absolute Seg Neuts 21.73 10^/uL (1.70-6.50) H 01/26/18 05:00 Absolute Band Neuts 0.72 10^3/uL (0.00-0.70) H 01/26/18 05:00 Absolute Lymphocytes 0.24 10^3/uL (1.00-3.00) L 01/26/18 05:00 Absolute Monocytes 1.19 10^3/uL (0.30-0.80) H 01/26/18 05:00 Absolute Eosinophils 0.00 10^3/uL (0.03-0.40) L 01/26/18 05:00 Absolute Basophils 0.00 10^3/uL (0.02-0.10) L 01/26/18 05:00 Absolute Metamyelocyte 0.00 10^3/mL (0.00-0.00) 01/26/18 05:00 Absolute Myelocytes 0.00 10^3/mL (0.00-0.00) 01/26/18 05:00 Absolute Promyelocytes 0.00 10^3/uL (0.00-0.00) 01/26/18 05:00 Absolute Plasma Cells 0.00 10^3/uL (0.00-0.00) 01/26/18 05:00 Nucleated RBCs 0 /100 WBC (0-0) 01/26/18 05:00 Absolute Blast Cells 0.00 10^3/uL (0.00-0.00) 01/26/18 05:00 Plasma Cells % 0.0 % 01/26/18 05:00 Platelet Estimate INCREASED (ADEQ) H 01/26/18 05:00 APTT 34.5 SEC (23.0-38.0) 01/26/18 05:00 VBG Lactic Acid 1.3 mmol/L (0.7-2.1) 01/26/18 05:50 Sodium 136 mEq/L (135-145) 01/26/18 05:00 Potassium 4.5 mEq/L (3.3-5.0) 01/26/18 05:00 Chloride 98 mEq/L (97-110) 01/26/18 05:00 Carbon Dioxide 30 mEq/l (22-31) 01/26/18 05:00 Anion Gap 8 mEq/L (8-16) 01/26/18 05:00 BUN 20 mg/dL (7-23) 01/26/18 05:00 Creatinine 1.1 mg/dL (0.7-1.3) 01/26/18 05:00 Estimated GFR > 60 01/26/18 05:00 Glucose 120 mg/dL (70-100) H 01/26/18 05:00 Calcium 9.5 mg/dL (8.5-10.4) 01/26/18 05:00 Total Bilirubin 0.6 mg/dL (0.1-1.4) 01/26/18 05:00 Conjugated Bilirubin 0.2 mg/dL (0.0-0.5) 01/26/18 05:00 Unconjugated Bilirubin 0.4 mg/dL (0.0-1.1) 01/26/18 05:00 AST 36 IU/L (17-59) 01/26/18 05:00 ALT 31 IU/L (21-72) 01/26/18 05:00 Alkaline Phosphatase 75 IU/L (38-126) 01/26/18 05:00 POC Troponin I 0.02 ng/mL (0.00-0.08) 01/26/18 05:46 NT-Pro-B Natriuret Pep 668 pg/mL (0-450) H 01/26/18 05:00 Total Protein 6.2 g/dL (6.3-8.2) L 01/26/18 05:00 Albumin 3.1 g/dL (3.5-5.0) L 01/26/18 05:00 Visualized and Interpreted Chest x-ray results: Yes Chest X-Ray results: infiltrate (RML/RUL, mildly worsened from prior) Visualized and Interpreted EKG results: Yes EKG Interpretation: Positive for: other (Sinus tachycardia) Assessment & Plan Assessment: 82 yo M w/ hx of COPD, HTN, and recent admission for treatment of CAP presents with sepsis. Plan: 1. Sepsis - 4/4 SIRS criteria present on admission; SOFA score of 6. Source is most likely persistent RML/RUL pneumonia. CXR (personally reviewed/interpreted) reveals persistent, dense infiltrate with possible mild worsening. He completed 5 day course of levofloxacin a few days ago. Urinary source is another consideration noting increased frequency and incontinence, this will need to be investigated. - Vancomycin, Zosyn for broad coverage noting recent admission and worsening despite levofloxacin course - Continue fluid resuscitation - UA ordered to evaluate urinary concerns - Blood and sputum cultures pending - Low threshold for CT to evaluate for complications (mass, empyema, etc) if not improving 2. AHRF - Currently requiring 5 L/min O2 via NC to maintain O2 sats >90%. O2 sats noted in 60-70% range on arrival on room air with marked tachypnea and respiratory distress. Etiology multifactorial from pneumonia and hx of COPD. He has been on 3 L/min O2 continuously since discharge from the hospital a few days ago; not on O2 prior to that. - Continue O2 as needed to maintain O2 sats - Incentive spirometer ordered - Acute management as above 3. COPD - Does not have a clear exacerbation at this time but is at high risk for one. He has reduced air movement and a mild wheeze currently. - Duonebs QID ordered - Albuterol PRN - Low threshold for steroids if not improving 4. HTN - On lisinopril as outpatient; would hold this until sepsis physiology improves. 5. UC - Continue home meds pending med reconciliation. Diet - Regular Code - Full Ppx - LMWH Dispo - Admit under inpatient status
[2018-01-26] MEDS: ENOXAPARIN 40 MG/0.4 ML SYR SC SCH (08:45)
--- NOTE | 2018-01-26 09:37 | ASMTCMCOM ---
CM Note CM Note Notes: 82yr old male admitted for Respiratory Failure, Hypoxia, PNA, Urinary frequency. He had been discharged on 01/21 with similar dx and went home on O2. Patient has a Hx of COPD, HTN, a former smoker, Back Surgery. Patient lives in [place] and his sister Herminia is his [facility] [place] #[phone]. CM to follow for possible discharge needs. Date Signed: 01/26/2018 09:37 AM Electronically Signed By:Ramya Olivares LCSW
--- NOTE | 2018-01-26 09:43 | PDMN ---
Medical Necessity Medical necessity: [facility] [place] M160 Sepsis: 82 y/o w/ Sepsis - 4/4 SIRS criteria present on admission, tachy HR 115, sat 70% RA, RR 30, temp 39.4, WBC 23.88; SOFA score of 6. Source is most likely persistent RML/RUL pneumonia. CXR reveals persistent, dense infiltrate with possible mild worsening. He completed 5 day course of levofloxacin a few days ago for PNA. Urinary source is another consideration noting increased frequency and incontinence. Hx COPD, HTN
[2018-01-26] MEDS: IPRATROPIUM/ALBUTEROL 3 ML DEYVIAL IH SCH ×2 (10:33→17:51)
[2018-01-26] MEDS: PIPERACILLIN/TAZO 3.375 GM/DEX 50 ML IV SCH ×2 (12:13→17:33)
--- NOTE | 2018-01-26 12:14 | WOCRNPDOC ---
WOCRN Advanced Assessment Note - Skin Integrity Problem, Advanced Assess Left Hip Pressure Injury Dressing Type: Allevyn Life Dressing Description: Clean/Dry, Intact Exudate Amount: None Integumentary Issue Intervention: Visualized Under Dressing Odette Wound Tissue: Blanching Wound Bed Color: Yellow Wound Bed Constitution: Adhered Slough Wound Edges: Attached Site Odor: None Site Measurement - Head-to-Toe Length X Width X Depth (cm): 0.6x0.6xraised Pressure Injury Stage: Unstageable, Beef Grinder Related Pressure Injury Pressure Injury Present on Admit: Yes Skin Integrity Problem Comment: Patient states that this wound is the result of him sleeping with a TENS unit pad on his hip which caused a pressure injury. Wound has been there for at least 2 months per patient report. Wound was cleansed with NS and gauze. Wound bed consists of dry, adhered slough since patient states he has had it open to air. Will initiate moist wound healing. Patient is very mobile in bed. Wound care will round again later this week.
--- NOTE | 2018-01-26 15:23 | CPEKG ---
Test Reason : OPEN Blood Pressure : / mmHG Vent. Rate : 113 BPM Atrial Rate : 115 BPM P-R Int : 174 ms QRS Dur : 079 ms QT Int : 303 ms P-R-T Axes : 049 -31 034 degrees QTc Int : 416 ms Sinus tachycardia Atrial premature complex Left axis deviation Confirmed by Tata Hooker ([id number]) on 01/26/2018 3:23:04 PM Referred By: Confirmed By:Tata Hooker
[2018-01-26] MEDS: BALSALAZIDE DISODIUM 750 MG CAP PO SCH ×2 (17:33→20:49)
--- NOTE | 2018-01-26 17:50 | HOSPPROG ---
Hospitalist Progress Note Assessment/Plan: Hospitalist evening rounds on admission day Patient does feel very tired but overall feels somewhat improved in terms of decreased cough and dyspnea. Feels quite weak. No chest pain or sweats or rigors. Minimal appetite Blood pressure stable, pulse and improved, respiratory rate improved, temperatures improved Respirations still mildly labored at rest and is using some oxygen Skin warm and dry good capillary refill Objective: Vital Signs Temp Pulse Resp BP Pulse Ox 36.8 C 94 22 H 123/61 H 95 01/26/18 11:48 01/26/18 16:00 01/26/18 16:00 01/26/18 16:00 01/26/18 16:00 Microbiology 01/26/18 11:30 - Final Sputum, Expectorated Sputum Culture - Final 01/25/18 01/26/18 01/27/18 06:59 06:59 06:59 Intake Total 150 Output Total 350 Balance -200 ICD10 Worksheet Patient Problems: Problems Problem Status Onset Acute respiratory failure with hypoxia Acute Hypoxia Acute Pneumonia Acute Chronic Disease Mgmt/Transitional Care Acute Sepsis Acute
--- NOTE | 2018-01-26 19:11 | GCON ---
PULMONARY CRITICAL CARE CONSULTATION DATE OF CONSULTATION: 01/26/2018 REASON FOR CONSULTATION: Persistent right upper lobe pneumonia in a patient with COPD. HISTORY: The patient is a very pleasant 82-year-old gentleman. He started smoking when he was 19 an d smoked off and on until 2001, when he was 64. He was recently in the hospital for a right upper lo be pneumonia. He was discharged to complete antibiotics, on oxygen. He apparently had trouble with his oxygen concentrators and noted his current concentrator to not be working. He was hypoxic into t he 70s. He called the paramedics and was brought to the emergency department. In the ED, he was feb rile to 102 and tachycardic in the 120s. He was tachypneic. Initial room air saturations in the ED were 70%. He was placed on oxygen. Chest x-ray showed a persistent and more dense segmental consoli dation of the anterior segment of the right upper lobe. He was given antibiotics, albuterol, Tylenol for fever. He was admitted to the intensive care unit this morning on Zosyn and vancomycin. He had most recently been on Levaquin and did get a dose of Levaquin in the emergency department. DuoNeb i s being given. Advair has been started. He is on enoxaparin and famotidine. PAST MEDICAL HISTORY: Remarkable for COPD, systemic hypertension, and prostatic hypertrophy. He als o has a history of apparent gastroesophageal reflux. MEDICATIONS: At home are as listed. ALLERGIES: Sulfa preparations. SURGICAL HISTORY: Back surgery. SOCIAL HISTORY: The patient is single. He lives in the [facility]. Significant alcohol is den ied. He smoked cigarettes as outlined in the HPI. He has friends and caregivers to help care for hi m when needed. He has no immediate family. FAMILY HISTORY: Noncontributory. REVIEW OF SYSTEMS: A 10-point review of systems is negative. PHYSICAL EXAMINATION: GENERAL: Reveals a very pleasant gentleman who is in no apparent distress. V ITAL SIGNS: An oxy mask is in place at 5 L, saturations are 95%. He is afebrile. Blood pressure of 123/61 with a heart rate of 85 and sinus rhythm on the monitor. HEENT: Unremarkable for lymphadeno henrique or thyromegaly. There is no significant jugular venous distention. Mucous membranes are moist . CHEST: Decreased breath sounds bilaterally. There are no rhonchi. There are no wheezes, althoug h expiratory phase is prolonged. There are no consolidated changes or significant rales over the rig ht upper lobe anteriorly or laterally. HEART: Regular in rate and rhythm. There is a soft systolic murmur, no obvious gallop. P2 appears to be increased. ABDOMEN: Soft, nontender. Bowel sounds ar e present. EXTREMITIES: Unremarkable for significant edema. There is a dressing over the left hip where there is a pressure sore/decubitus. NEUROLOGIC: Examination is nonfocal. Mentation is intact . DATABASE: Chest x-ray is as outlined above. Previous CT scan of the chest done on his last admission was reviewed. Underlying mass in the right upper lobe cannot be excluded. There is some associated hilar and mediastinal adenopathy, which coul d be reactive or could represent early metastatic disease from primary lung cancer in the air of the right upper lobe. White blood cell count is 23,800, hematocrit 38, platelets are 505,000. PT on admission was normal. Venous lactate was 1.3. Basic metabolic panel was within normal limits. Troponin was negative. BN P was 668. Albumin 3.1. Urinalysis showed a few white blood cells, but leukocyte esterase was negat ena as were nitrites. ASSESSMENT: 1. Right upper lobe pneumonia. This was present when he was here over a week ago and clearly has no t resolved, but is more dense. He did complete levofloxacin. Pneumonia, however, persists. He is c urrently on Zosyn and vancomycin, which are appropriate. A postobstructive process cannot be absolut reilly excluded at this time and bronchoscopy will be needed for cultures and to rule out malignancy. T his does not have to be done urgently; however, this will be needed prior to his discharge. 2. Chronic obstructive pulmonary disease. There is no evidence of an exacerbation. He is on bronch odilator therapy and inhaled steroids. 3. History of other medical problems as outlined above, stable. PLAN/RECOMMENDATIONS: The patient will be kept in the intensive care unit. Antibiotics and bronchod ilator therapy will be continued. Chest x-ray will be followed. Oxygen will be titrated based on sa turations. Bronchoscopy will be arranged, probably for Friday. All of the above was discussed with hospitalist and the patient. Further plans and recommendations will be made based on his progress over the next 12 to 24 hours. /[id number]/MODL
[2018-01-26] MEDS: ASPIRIN 81 MG CHEWABLE TAB PO SCH (20:48)
[2018-01-26] MEDS: ACETAMINOPHEN 325 MG TAB PO PRN (20:48)
[2018-01-26] MEDS: TAMSULOSIN HCL 0.4 MG CAP PO SCH (20:49)
[2018-01-27] MEDS: FLUTICASONE/SALMETER 100/50MCG DISKUS IH SCH ×3 (00:06→20:38)
[2018-01-27] MEDS: PIPERACILLIN/TAZO 3.375 GM/DEX 50 ML IV SCH ×5 (00:09→23:52)
[2018-01-27] MEDS: IPRATROPIUM/ALBUTEROL 3 ML DEYVIAL IH SCH ×5 (00:21→20:38)
[2018-01-27] MEDS: VANCOMYCIN 1.25 GM in NS 250 ML IV SCH (07:39)
[2018-01-27] MEDS: LISINOPRIL 10 MG TAB PO SCH (07:45)
[2018-01-27] MEDS: ENOXAPARIN 40 MG/0.4 ML SYR SC SCH (07:45)
[2018-01-27] MEDS: BALSALAZIDE DISODIUM 750 MG CAP PO SCH ×3 (07:45→20:26)
[2018-01-27] MEDS: FAMOTIDINE 20 MG TAB PO SCH (07:45)
[2018-01-27] MEDS: MULTIVITAMINS 1 EACH TAB PO SCH (07:46)
[2018-01-27] MEDS ORDERED: NS 1,000 ML IV SCH (09:45)
--- NOTE | 2018-01-27 10:01 | HOSPPROG ---
Hospitalist Progress Note Assessment/Plan: DIAGNOSES: *acute sepsis * overall notably better, still w some mild tachycardia but no sign of acidosis or organ failure *Acute hypoxemic resp failure *Acute pneumonia, recrudescence of community aquired pneumonia diagnosed 01/19/18 *All cultures from both admissions negative to date, resp path panel was neg ; negative pneumococcal and legionella titers *Ongoing Back pain after fairly recent spine surgery Seen by me today on hospitalist rounds and interdisciplinary rounds Reviewed today in detail with Dr. Clarence Valverde Patient has improved since arrival here yesterday but still having some tachycardia dyspnea weakness and fatigue In terms of why he did not resolve his pneumonia with simple antibiotic therapy would be concerned about possible postobstructive pneumonia from a bronchial lesion, or other anatomic abnormality PLANS: * Can move to [facility] today * Continue current antibiotics * Continue IV fluids * Will add Acapella flutter valve and guaifenesin * Plan on bronchoscopy to assess for possible endobronchial lesions, possibly tomorrow depending on his progress SUBJECTIVE: Feels better than at the time of admission but still weak and tired with some dyspnea Still with nearly continuous cough with significant amount of thick yellow secretions No chills or chest pain OBJECTIVE Vitals reviewed: Remains tachycardic but afebrile and with good blood pressures , 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, my review: Sinus Exam: alert oriented, looks exhausted and mildly uncomfortable, the latter likely due to ongoing back pain after his surgery a couple months ago skin warm dry color ok resps mildly labored lungs some rales at bases and anteriorly at right upper lobe heart regular abd soft nondistended nontender, bowel sounds present limbs warm, no edema iv site ok Microbiology: All cultures from this admission and last admission negative to date Respiratory pathogen panel from last admission was negative Objective: Vital Signs Temp Pulse Resp BP Pulse Ox 37.7 C 111 H 35 H 105/72 89 L 01/27/18 07:21 01/27/18 07:21 01/27/18 07:21 01/27/18 07:45 01/27/18 07:21 Microbiology 01/26/18 21:00 - Final Sputum, Induced/Suctioned 01/26/18 11:30 - Final Sputum, Expectorated Sputum Culture - Final 01/26/18 01/27/18 01/28/18 06:59 06:59 06:59 Intake Total 1900 Output Total 770 50 Balance 1130 -50 - Time Spent With Patient Time Spent with Patient: greater than 35 minutes Time Spent with Patient: Greater than 35 minutes spent on this patients care, greater than 50% of time spent counseling, educating, and coordinating care regarding the above mentioned plan. ICD10 Worksheet Patient Problems: Problems Problem Status Onset Acute respiratory failure with hypoxia Acute Hypoxia Acute Pneumonia Acute Chronic Disease Mgmt/Transitional Care Acute Sepsis Acute
[2018-01-27] MEDS: guaiFENesin 600 MG TAB.ER PO SCH ×2 (10:16→20:26)
--- NOTE | 2018-01-27 12:31 | PDINTPN ---
Rn Maternal Child Progress Note Assessment/Plan: Assessment: Right upper lobe infiltrate. Persists despite recent treatment for pneumonia. On appropriate antibiotics for possible nosocomial pneumonia. Sputum culture pending but obtained after the initiation of antibiotics. An underlying malignancy/postobstructive pneumonia needs to be excluded. COPD: Stable. On appropriate medications. Prophylaxis: On enoxaparin, ASA. GI: eating CAD: No issues currently. Hypertension: On his outpatient medications. Blood pressure is okay. Metabolic: No issues identified. For repeat labs in a.m.. Plan: Continue present antibiotics and bronchopulmonary therapies and other medications. Okay to transfer to the floor today. NPO in the a.m. for bronchoscopy tomorrow with fluoroscopy. I will arrange. Hold Lovenox in a.m.. 40 min of critical care time spent directly with the patient. Discussed with hospitalist, nursing, RT. Subjective: Doing okay, less short of breath. He is coughing and bringing up some yellowish mucus. Denies pain. Objective: Vital Signs Temp Pulse Resp BP Pulse Ox 37.7 C 119 H 18 125/64 H 92 01/27/18 07:21 01/27/18 11:48 01/27/18 11:48 01/27/18 11:48 01/27/18 11:48 Microbiology 01/26/18 21:00 - Final Sputum, Induced/Suctioned 01/26/18 11:30 - Final Sputum, Expectorated Sputum Culture - Final 01/26/18 01/27/18 01/28/18 05:59 05:59 05:59 Intake Total 1900 Output Total 770 50 Balance 1130 -50 Sputum culture: Pending. White blood cells and mixed organisms on Gram stain. Physical Exam - Physical Exam General Appearance: alert, no apparent distress, other (Up in chair) EENT: PERRL/EOMI, other (Nasal cannula in place at 5 L) Neck: normal inspection (No JVD) Respiratory: decreased breath sounds, prolonged expiration, No rales, No rhonchi Cardiac/Chest: tachycardia (Sinus), No gallop Abdomen: normal bowel sounds, non-tender, soft Skin: normal color, warm/dry Extremities: No pedal edema Neuro/Psych: no motor/sensory deficits, No cognition abnormalities ICD10 Worksheet Patient Problems: Problems Problem Status Onset Acute respiratory failure with hypoxia Acute Hypoxia Acute Pneumonia Acute Chronic Disease [facility]/Transitional Care Acute Sepsis Acute
--- NOTE | 2018-01-27 14:51 | ASMTCMCOM ---
CM Note CM Note Notes: PT recommending SNF Rehab. Spoke to patient and gave him a list of SNF's and Private Duty Care. His friend, Parminder to go look at facilities and let us know where to send referrals. Patient interested in going to [place] to live after Rehab. Date Signed: 01/27/2018 02:51 PM Electronically Signed By:Ramya Olivares LCSW
[2018-01-27] MEDS: ACETAMINOPHEN 325 MG TAB PO PRN (20:25)
[2018-01-27] MEDS: TAMSULOSIN HCL 0.4 MG CAP PO SCH (20:26)
[2018-01-27] MEDS: ASPIRIN 81 MG CHEWABLE TAB PO SCH (20:26)
[2018-01-28] MEDS ORDERED: LORazepam 0.5 MG TAB PO ONE ×2 (00:36→22:57)
[2018-01-28] MEDS: IPRATROPIUM/ALBUTEROL 3 ML DEYVIAL IH SCH ×4 (05:18→21:09)
[2018-01-28] MEDS: PIPERACILLIN/TAZO 3.375 GM/DEX 50 ML IV SCH ×3 (05:41→18:08)
[2018-01-28 05:59] LABS: INR 1.46 (0.83-1.16); PLATELET COUNT 427 10^3/uL (150-400); PROTIME(PATIENT) 17.9 SEC (12.0-15.0)
[2018-01-28] MEDS: VANCOMYCIN 1.25 GM in NS 250 ML IV SCH (07:43)
[2018-01-28] MEDS: BALSALAZIDE DISODIUM 750 MG CAP PO SCH ×3 (07:50→21:35)
[2018-01-28] MEDS: FAMOTIDINE 20 MG TAB PO SCH (07:50)
[2018-01-28] MEDS: guaiFENesin 600 MG TAB.ER PO SCH ×2 (07:50→20:32)
[2018-01-28] MEDS: LISINOPRIL 10 MG TAB PO SCH (07:50)
[2018-01-28] MEDS: MULTIVITAMINS 1 EACH TAB PO SCH (07:51)
--- NOTE | 2018-01-28 11:13 | SOAPPROG ---
SOAP Progress Note Assessment/Plan: Assessment: Right upper lobe infiltrate. Persists despite recent treatment for pneumonia. On appropriate antibiotics for possible nosocomial pneumonia. Sputum culture pending but obtained after the initiation of antibiotics. An underlying malignancy/postobstructive pneumonia needs to be excluded. For bronchoscopy today. COPD: Stable. Increased right upper lobe congestion today. On appropriate medications. Prophylaxis: Enoxapari on hold, ASA. GI: eating CAD: No issues currently. Hypertension: On his outpatient medications. Blood pressure is okay. Metabolic: No issues identified. For repeat labs in a.m.. Plan: Continue present antibiotics and bronchopulmonary therapies and other medications. For bronchoscopy today at 2:00 p.m.. Lovenox on hold. I discussed the risks and benefits in the procedure with the patient. 40 min of critical care time spent directly with the patient. Discussed with hospitalist, nursing, RT. Subjective: No complaints. Denies significant shortness of breath. Cough persists, some mucus. Objective: Vital Signs Temp Pulse Resp BP Pulse Ox 36.6 C 112 H 20 108/50 L 85 L 01/28/18 07:47 01/28/18 09:45 01/28/18 07:47 01/28/18 07:47 01/28/18 09:45 Microbiology 01/26/18 21:00 - Final Sputum, Induced/Suctioned Laboratory Results 01/28/18 05:40 01/28/18 05:40 01/27/18 01/28/18 01/29/18 05:59 05:59 05:59 Intake Total 1900 2800 250 Output Total 770 1125 250 Balance 1130 1675 0 PT 17.9 SEC (12.0-15.0) H 01/28/18 05:40 INR 1.46 (0.83-1.16) H 01/28/18 05:40 Laboratory Tests 01/28/18 05:40 Calcium 8.4 L Physical Exam - Physical Exam General Appearance: alert, no apparent distress EENT: PERRL/EOMI, other (Nasal cannula in place at 5-6 L) Neck: normal inspection (No JVD) Respiratory: decreased breath sounds, rales (Some rales comma congestion, and possibly a fixed wheeze verses mucus over the right upper chest), wheezing Cardiac/Chest: regular rate, rhythm, No gallop Abdomen: normal bowel sounds, non-tender, soft Skin: normal color, warm/dry Extremities: No pedal edema Neuro/Psych: no motor/sensory deficits, No cognition abnormalities ICD10 Worksheet Patient Problems: Problems Problem Status Onset Hypoxia Acute Acute respiratory failure with hypoxia Acute Chronic Disease Mgmt/Transitional Care Acute Sepsis Acute Pneumonia Acute
[2018-01-28] MEDS: FLUTICASONE/SALMETER 100/50MCG DISKUS IH SCH ×2 (12:08→21:08)
[2018-01-28] MEDS: ACETAMINOPHEN 325 MG TAB PO PRN (12:15)
[2018-01-28] MEDS ORDERED: LIDOCAINE 1% 300 MG/30 ML SDV ONE (13:51)
[2018-01-28] MEDS ORDERED: LIDOCAINE 2% JELLY 5 ML TUBE ONE (13:51)
[2018-01-28] MEDS ORDERED: ALBUTEROL 3 ML DEYVIAL ONE (13:51)
[2018-01-28] MEDS ORDERED: BENZOCAINE UNIT DOSE SPRAY HURRICAINE MM ONE (13:52)
[2018-01-28] MEDS ORDERED: LIDOCAINE HCL 4% TOPICAL SOLN 50ML ONE (13:52)
[2018-01-28] MEDS ORDERED: fentaNYL 100 MCG/2 ML INJ ONE (13:56)
[2018-01-28] MEDS ORDERED: EPINEPHrine 1 MG/ML INJ ONE (13:56)
[2018-01-28] MEDS ORDERED: MIDAZOLAM 2 MG/2 ML VIAL ONE (13:56)
[2018-01-28] MEDS ORDERED: ALBUTEROL 3 ML DEYVIAL IH ONE (14:08)
[2018-01-28] MEDS ORDERED: NS 500 ML IV ONE (14:08)
--- NOTE | 2018-01-28 14:27 | PDPROPOC ---
Sedation Plan of Care Sedation Plan of Care: vital signs stable, mental status noted, patient educated of risks, benefits, alternatives, patient can tolerate sedation ASA Classification: ASA 2 Planned drugs: fentanyl, midazolam Mallampati Score: Class 2 Mallampati Reference Image:
--- NOTE | 2018-01-28 14:28 | PDHPUP ---
History & Physical Update H&P update statement: This history and physical update is based on an assessment of the patient which was completed after admission or registration (within 24 hours), but prior to the surgery/procedure. H&P update: H&P reviewed & patient examined, no change in patient's condition since H&P completed (Please see the progress note from earlier today and consultation note a day or earlier)
[2018-01-28] MEDS ORDERED: MIDAZOLAM 2 MG/2 ML VIAL IVP ONE (15:23)
[2018-01-28] MEDS ORDERED: fentaNYL 100 MCG/2 ML INJ IVP ONE (15:24)
--- NOTE | 2018-01-28 17:08 | HOSPPROG ---
Hospitalist Progress Note Assessment/Plan: DIAGNOSES: *acute sepsis * overall notably better, still w some mild tachycardia but no sign of acidosis or organ failure *Acute hypoxemic resp failure *Acute pneumonia, recrudescence of community aquired pneumonia diagnosed 01/19/18 *All cultures from both admissions negative to date, resp path panel was neg ; negative pneumococcal and legionella titers *Ongoing Back pain after fairly recent spine surgery Seen by me today on hospitalist rounds and interdisciplinary rounds Reviewed today in detail with Dr. Clarence Valverde PLANS: * Continue current antibiotics, bronchodilators * Can DC IV fluids at this time * Acapella flutter valve and guaifenesin * Await bronchoscopic biopsy results and bronch washing cultures along with other infection studies SUBJECTIVE: Feel somewhat better today, still with dyspnea and significant productive cough Feels slightly less weak Slept better last night OBJECTIVE Vitals reviewed: All stable without fever, still requiring oxygen at 5 L Manager Fine, my review: Sinus Exam: alert oriented, looks somewhat less exhausted skin warm dry color ok resps mildly labored lungs less rales today still present at right upper lobe heart regular abd soft nondistended nontender, bowel sounds present limbs warm, no edema iv site ok Microbiology: All cultures from this admission and last admission negative to date Respiratory pathogen panel from last admission was negative Bronchoscopy done by Dr. Clarence Valverde today, I reviewed with Dr. Valverde: much mucous plugging very thick, no masses cultures and brush bx's done Objective: Vital Signs Temp Pulse Resp BP Pulse Ox 36.6 C 87 20 128/69 H 95 01/28/18 16:00 01/28/18 16:00 01/28/18 16:00 01/28/18 16:00 01/28/18 16:00 Microbiology 01/26/18 21:00 - Final Sputum, Induced/Suctioned Laboratory Results 01/28/18 05:40 01/28/18 05:40 01/27/18 01/28/18 01/29/18 06:59 06:59 06:59 Intake Total 1900 2800 500 Output Total 770 1125 375 Balance 1130 1675 125 PT 17.9 SEC (12.0-15.0) H 01/28/18 05:40 INR 1.46 (0.83-1.16) H 01/28/18 05:40 ICD10 Worksheet Patient Problems: Problems Problem Status Onset Acute respiratory failure with hypoxia Acute Hypoxia Acute Pneumonia Acute Chronic Disease Mgmt/Transitional Care Acute Sepsis Acute
[2018-01-28] MEDS: TAMSULOSIN HCL 0.4 MG CAP PO SCH (20:32)
[2018-01-28] MEDS: ASPIRIN 81 MG CHEWABLE TAB PO SCH (20:33)
--- NOTE | 2018-01-28 20:39 | GPN ---
DATE OF PROCEDURE: 01/28/2018 INDICATION: Persistent right upper lobe infiltrate in a patient recently treated with pneumonia. He is a long-time smoker. Lung cancer is possible. This procedure is being done to obtain deep cultur es, cytologies and biopsies. PROCEDURE NOTE: The procedure was performed in the endoscopy unit. Informed consent was obtained by the patient. Appropriate time-out was performed. Conscious sedation included 4 mg of Versed and 10 0 mcg of fentanyl. Topical anesthesia included 5 mL of 4% lidocaine to the posterior oropharynx and approximately 20 mL of 1% lidocaine to the vocal cords and tracheobronchial tree. The fiberoptic bronchoscope was passed via a bite block orally into the larynx. The vocal cords were identified. They moved normally with cough and respiration. The bronchoscope was then advanced int o the trachea and into the lower tracheobronchial tree bilaterally. There were thick secretions in t he distal trachea and on the right side, coming from the right upper lobe, especially the posterior s egment. The 3 segmental bronchi of the right upper lobe were patent. There was erythema and some ed fern in this area, causing mild narrowing. There were no endobronchial lesions and no evidence of obv ious malignancy. Bronchoalveolar lavage samples were obtained. The mucus was removed with suction a nd lavage and included in the BAL samples. A brush biopsy sample was obtained followed by biopsies u nder fluoroscopic guidance. The patient tolerated the procedure well. Bleeding was minimal, less than 3 or 4 cc. There was no e vidence of a pneumothorax by fluoroscopy at the end of the procedure. A chest x-ray is pending. IMPRESSION: Thick mucus with mucous plugging, related to the right upper lobe. This was removed wit h suction and lavage. Brushes and biopsies were obtained. Appropriate samples were sent to the [facility]. There was no evidence of obvious malignancy visually. /[id number]/MODL
[2018-01-28] MEDS: BENZONATATE 100 MG CAP PO PRN (23:09)
[2018-01-29] MEDS: PIPERACILLIN/TAZO 3.375 GM/DEX 50 ML IV SCH ×5 (00:39→23:57)
[2018-01-29] MEDS: IPRATROPIUM/ALBUTEROL 3 ML DEYVIAL IH SCH ×4 (05:29→23:09)
[2018-01-29] MEDS: ENOXAPARIN 40 MG/0.4 ML SYR SC SCH (07:53)
[2018-01-29] MEDS: FAMOTIDINE 20 MG TAB PO SCH (07:53)
[2018-01-29] MEDS: MULTIVITAMINS 1 EACH TAB PO SCH (07:53)
[2018-01-29] MEDS: LISINOPRIL 10 MG TAB PO SCH (07:53)
[2018-01-29] MEDS: guaiFENesin 600 MG TAB.ER PO SCH ×2 (07:53→21:44)
[2018-01-29] MEDS: ACETAMINOPHEN 325 MG TAB PO PRN ×3 (08:01→21:44)
--- NOTE | 2018-01-29 08:03 | HOSPPROG ---
Hospitalist Progress Note Assessment/Plan: 82 yo M w/ hx of COPD, HTN, and recent admission for treatment of CAP presents with sepsis. *acute sepsis -tachycardic -due to pneumonia *pna, residual from CAP diagnosed on 01/19 -blood cx negative, resp path panel was negative on 01/19 -Zosyn (started on 01/26) *leukocytosis due to the above *Acute hypoxemic resp failure -s/p bronchoscopy yesterday w thick mucus plugging noted -increase WOB w use of accessory muscles -check an ABG and get a chest x ray now -message left for pulmonology to see here on the floor *copd *CAD *Ongoing Back pain after fairly recent spine surgery -not c/ PLANS: -chest x ray, abg, continue frequent neb treatments Subjective: Freeman said he is feeling worse today. More short of breath. Objective: Vital Signs Temp Pulse Resp BP Pulse Ox 36.6 C 110 H 16 136/86 H 92 01/29/18 07:31 01/29/18 07:31 01/29/18 07:31 01/29/18 07:53 01/29/18 07:31 Microbiology 01/28/18 14:50 Gram Stain - Final Lung Right Upper Lobe - Bronchial Washings 01/26/18 21:00 - Final Sputum, Induced/Suctioned Laboratory Results 01/28/18 05:40 01/28/18 05:40 01/28/18 01/29/18 01/30/18 05:59 05:59 05:59 Intake Total 2800 500 Output Total 1125 725 Balance 1675 -225 PT 17.9 SEC (12.0-15.0) H 01/28/18 05:40 INR 1.46 (0.83-1.16) H 01/28/18 05:40 - Physical Exam Constitutional: chronically ill appearing, other (thin) Eyes: PERRL Ears, Nose, Mouth, Throat: hearing normal Cardiovascular: regular rate and rhythym Respiratory: expiratory wheeze, respiratory distress (use of accessory muscles w breathing), rhonchi Gastrointestinal: normoactive bowel sounds Skin: warm Neurologic: AAOx3 Psychiatric: interacting appropriately, anxious ICD10 Worksheet Patient Problems: Problems Problem Status Onset Acute respiratory failure with hypoxia Acute Hypoxia Acute Pneumonia Acute Chronic Disease Mgmt/Transitional Care Acute Sepsis Acute
[2018-01-29] MEDS: BALSALAZIDE DISODIUM 750 MG CAP PO SCH ×3 (08:06→21:44)
[2018-01-29] MEDS: ALBUTEROL 3 ML DEYVIAL IH PRN ×2 (08:59→20:22)
[2018-01-29] MEDS: FLUTICASONE/SALMETER 100/50MCG DISKUS IH SCH ×2 (08:59→20:22)
[2018-01-29] MEDS: BENZONATATE 100 MG CAP PO PRN (09:51)
[2018-01-29] MEDS: GUAIFENESIN/DM 10 ML UDCUP PO PRN (12:44)
[2018-01-29] MEDS ORDERED: CEPACOL LOZENGE PO PRN (12:46)
--- NOTE | 2018-01-29 15:47 | ASMTCMCOM ---
CM Note CM Note Notes: Spoke w/RN, pt wishes referral to SNF to go to [facility] in [place]. DC not likely until Friday. DC Plan: SNF Date Signed: 01/29/2018 03:47 PM Electronically Signed By:Deann Monterroso RN
[2018-01-29] MEDS: ASPIRIN 81 MG CHEWABLE TAB PO SCH (21:44)
[2018-01-29] MEDS: TAMSULOSIN HCL 0.4 MG CAP PO SCH (21:44)
--- NOTE | 2018-01-29 22:16 | SOAPPROG ---
SOAP Progress Note Assessment/Plan: Assessment: Right upper lobe infiltrate. Persists despite recent treatment for pneumonia. On appropriate antibiotics for possible nosocomial pneumonia. Status post bronchoscopy yesterday. Thick mucus primarily related to the right upper lobe. No obvious malignancy. Final cultures and cytology/pathology pending. COPD: Stable. Right upper lobe congestion persists. I will add Mucomyst. Prophylaxis: Enoxaparin, ASA. GI: eating CAD: No issues currently. Hypertension: On his outpatient medications. Blood pressure is okay. Metabolic: No issues identified. Plan: Continue Zosyn and bronchopulmonary therapies. Add Mucomyst. Await final culture results and cytology/pathology Subjective: Doing okay. Still with cough and mucus, some shortness of breath. Objective: Vital Signs Temp Pulse Resp BP Pulse Ox 36.6 C 98 20 129/73 H 95 01/29/18 14:59 01/29/18 20:22 01/29/18 20:22 01/29/18 14:59 01/29/18 20:22 Microbiology 01/26/18 21:00 - Final Sputum, Induced/Suctioned Sputum Culture - Final 01/28/18 14:50 Gram Stain - Final Lung Right Upper Lobe - Bronchial Washings 01/28/18 14:50 Mycobacterial Smear (LEE) - Final Lung Right Upper Lobe - Bronchial Washings Laboratory Results 01/28/18 05:40 01/28/18 05:40 01/28/18 01/29/18 01/30/18 05:59 05:59 05:59 Intake Total 2800 500 550 Output Total 1125 725 525 Balance 1675 -225 25 PT 17.9 SEC (12.0-15.0) H 01/28/18 05:40 INR 1.46 (0.83-1.16) H 01/28/18 05:40 CXR: No change Bronchoscopy samples pending Regarding cytologies and pathology. No significant organisms. Heather not a pathogen. Physical Exam - Physical Exam General Appearance: alert, no apparent distress EENT: other ( Nasal cannula at 5 L) Neck: normal inspection ( no JVD) Respiratory: decreased breath sounds, rhonchi ( present on the right), wheezing ( few wheezes present), prolonged expiration Cardiac/Chest: regular rate, rhythm, No gallop Abdomen: normal bowel sounds, non-tender, soft Skin: normal color, warm/dry Extremities: No pedal edema Neuro/Psych: no motor/sensory deficits, No cognition abnormalities ICD10 Worksheet Patient Problems: Problems Problem Status Onset Hypoxia Acute Acute respiratory failure with hypoxia Acute Chronic Disease Mgmt/Transitional Care Acute Sepsis Acute Pneumonia Acute
[2018-01-30] MEDS: IPRATROPIUM/ALBUTEROL 3 ML DEYVIAL IH SCH ×5 (01:00→22:10)
[2018-01-30] MEDS: ACETYLCYSTEINE 20% IH/PO 4 ML VIAL IH SCH ×4 (05:21→22:10)
[2018-01-30] MEDS: PIPERACILLIN/TAZO 3.375 GM/DEX 50 ML IV SCH ×3 (05:52→17:11)
[2018-01-30] MEDS: ACETAMINOPHEN 325 MG TAB PO PRN ×3 (06:19→17:11)
[2018-01-30] MEDS: GUAIFENESIN/DM 10 ML UDCUP PO PRN ×2 (06:19→11:58)
[2018-01-30] MEDS: LISINOPRIL 10 MG TAB PO SCH (08:07)
[2018-01-30] MEDS: FAMOTIDINE 20 MG TAB PO SCH (08:07)
[2018-01-30] MEDS: guaiFENesin 600 MG TAB.ER PO SCH ×2 (08:07→22:35)
[2018-01-30] MEDS: BENZONATATE 100 MG CAP PO PRN ×2 (08:08→17:11)
[2018-01-30] MEDS: MULTIVITAMINS 1 EACH TAB PO SCH (08:08)
[2018-01-30] MEDS: BALSALAZIDE DISODIUM 750 MG CAP PO SCH ×3 (08:08→22:35)
[2018-01-30] MEDS: ENOXAPARIN 40 MG/0.4 ML SYR SC SCH (08:08)
--- NOTE | 2018-01-30 08:46 | WOCRNPDOC ---
WOCRN Advanced Assessment Note - Skin Integrity Problem, Advanced Assess Left Hip Pressure Injury Dressing Type: Allevyn Life Wound Bed Constitution: Healed (scar tissue present. No other scab/eschar remains. ) Skin Integrity Problem Comment: Wound care will sign off.
[2018-01-30] MEDS: FLUTICASONE/SALMETER 100/50MCG DISKUS IH SCH ×2 (08:47→22:21)
--- NOTE | 2018-01-30 10:16 | HOSPPROG ---
Hospitalist Progress Note Assessment/Plan: 82 yo M w/ hx of COPD, HTN, and recent admission for treatment of CAP presents with sepsis. *acute sepsis -tachycardic -due to pneumonia *pna, residual from CAP diagnosed on 01/19 -blood cx negative, resp path panel was negative on 01/19 -Zosyn (started on 01/26) *leukocytosis due to the above *dark stools -will check OB screen *Acute hypoxemic resp failure -s/p bronchoscopy w thick mucus plugging noted -pulmonology continuing to follow, on more O2 today, but looks a bit better -pathology shows no evidence of malignancy *copd -impacting the above -has significant secretions, RT doing aggressive pulmonary toileting w use of percussion vests, nebs, *CAD *Ongoing Back pain after fairly recent spine surgery -not c/o of this PLANS:check stools for blood, cont aggressive pulm toileting, 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 Recheck labs in a.m. Subjective: Huseyin said his coughing is wearing him out. not feeling well today. Objective: Vital Signs Temp Pulse Resp BP Pulse Ox 36.5 C 87 16 128/68 H 94 01/30/18 07:11 01/30/18 08:50 01/30/18 08:50 01/30/18 08:07 01/30/18 08:50 Microbiology 01/26/18 21:00 - Final Sputum, Induced/Suctioned Sputum Culture - Final 01/28/18 14:50 Gram Stain - Final Lung Right Upper Lobe - Bronchial Washings 01/28/18 14:50 Mycobacterial Smear (LEE) - Final Lung Right Upper Lobe - Bronchial Washings Laboratory Results 01/28/18 05:40 01/28/18 05:40 01/29/18 01/30/18 01/31/18 05:59 05:59 05:59 Intake Total 500 550 Output Total 725 625 Balance -225 -75 PT 17.9 SEC (12.0-15.0) H 01/28/18 05:40 INR 1.46 (0.83-1.16) H 01/28/18 05:40 - Physical Exam Constitutional: chronically ill appearing Eyes: PERRL Ears, Nose, Mouth, Throat: hearing normal Cardiovascular: regular rate and rhythym, tachycardia Respiratory: expiratory wheeze, other (lungs very tight at the bases) Skin: warm Musculoskeletal: generalized weakness Neurologic: AAOx3 Psychiatric: interacting appropriately, anxious ICD10 Worksheet Patient Problems: Problems Problem Status Onset Acute respiratory failure with hypoxia Acute Hypoxia Acute Pneumonia Acute Chronic Disease Mgmt/Transitional Care Acute Sepsis Acute
--- NOTE | 2018-01-30 18:14 | SOAPPROG ---
SOAP Progress Note Assessment/Plan: Assessment: Right upper lobe infiltrate. Fairly extensive. Persists despite recent in current treatment for pneumonia. On appropriate antibiotics for possible nosocomial pneumonia. Status post bronchoscopy 01/28. Thick mucus primarily related to the right upper lobe. No obvious malignancy. Final cultures and cytology pending. Biopsies without specific findings. COPD: Stable. Associated with bullous emphysema. Right upper lobe congestion persists. On nebulized treatments and Mucomyst. Prophylaxis: Enoxaparin, ASA. GI: eating CAD: No issues currently. Hypertension: On his outpatient medications. Blood pressure is okay. Metabolic: No issues identified. Plan: Continue Zosyn and bronchopulmonary therapies. Add Mucomyst. Await final culture results and cytology/pathology. Add steroids. Subjective: Feels a little bit better. Remains short of breath. Continues to cough, occasionally brings up some mucus plugs. Objective: Vital Signs Temp Pulse Resp BP Pulse Ox 36.2 C 94 18 115/72 95 01/30/18 15:05 01/30/18 17:05 01/30/18 17:05 01/30/18 15:05 01/30/18 17:05 Microbiology 01/28/18 14:50 Gram Stain - Final Lung Right Upper Lobe - Bronchial Washings 01/26/18 21:00 - Final Sputum, Induced/Suctioned Sputum Culture - Final 01/28/18 14:50 Mycobacterial Smear (LEE) - Final Lung Right Upper Lobe - Bronchial Washings Laboratory Results 01/28/18 05:40 01/28/18 05:40 01/29/18 01/30/18 01/31/18 05:59 05:59 05:59 Intake Total 500 550 Output Total 725 625 200 Balance -225 -75 -200 PT 17.9 SEC (12.0-15.0) H 01/28/18 05:40 INR 1.46 (0.83-1.16) H 01/28/18 05:40 Biopsies negative for malignancy. Cytologies pending. Cultures unrevealing so far. AFB stain negative. Yeast likely is not a pathogen however will await final identification Physical Exam - Physical Exam General Appearance: alert, no apparent distress EENT: other (Nasal cannula in place at 5 L comma unchanged) Neck: normal inspection Respiratory: decreased breath sounds, rhonchi (Central rhonchi and congestion present on the right suggesting ongoing mucus there and bronchial narrowing), wheezing, prolonged expiration Cardiac/Chest: regular rate, rhythm, No gallop Abdomen: normal bowel sounds, non-tender, soft Skin: normal color, warm/dry Extremities: No pedal edema Neuro/Psych: no motor/sensory deficits, No cognition abnormalities ICD10 Worksheet Patient Problems: Problems Problem Status Onset Hypoxia Acute Acute respiratory failure with hypoxia Acute Chronic Disease Mgmt/Transitional Care Acute Sepsis Acute Pneumonia Acute
[2018-01-30] MEDS: MELATONIN 3 MG TAB PO SCH (22:35)
[2018-01-30] MEDS: TAMSULOSIN HCL 0.4 MG CAP PO SCH (22:35)
[2018-01-30] MEDS: ASPIRIN 81 MG CHEWABLE TAB PO SCH (22:35)
[2018-01-31] MEDS: PIPERACILLIN/TAZO 3.375 GM/DEX 50 ML IV SCH ×5 (00:21→23:25)
[2018-01-31] MEDS: ACETAMINOPHEN 325 MG TAB PO PRN (03:09)
[2018-01-31 05:18] LABS: PLATELET COUNT 386 10^3/uL (150-400)
[2018-01-31] MEDS: IPRATROPIUM/ALBUTEROL 3 ML DEYVIAL IH SCH ×4 (06:09→22:00)
[2018-01-31] MEDS: ACETYLCYSTEINE 20% IH/PO 4 ML VIAL IH SCH ×4 (06:09→22:00)
[2018-01-31] MEDS ORDERED: PROTOCOL POTASSIUM 1 DOSE MISC PRN (07:45)
[2018-01-31] MEDS ORDERED: POTASSIUM CL 10 MEQ TAB PO ONE ×2 (07:52→21:24)
[2018-01-31] MEDS: FAMOTIDINE 20 MG TAB PO SCH (08:51)
[2018-01-31] MEDS: predniSONE 20 MG TAB PO SCH ×2 (08:51→11:16)
[2018-01-31] MEDS: MULTIVITAMINS 1 EACH TAB PO SCH (08:51)
[2018-01-31] MEDS: LISINOPRIL 10 MG TAB PO SCH (08:51)
[2018-01-31] MEDS: guaiFENesin 600 MG TAB.ER PO SCH ×2 (08:51→21:16)
[2018-01-31] MEDS: FLUTICASONE/SALMETER 100/50MCG DISKUS IH SCH ×2 (08:55→21:23)
[2018-01-31] MEDS: BALSALAZIDE DISODIUM 750 MG CAP PO SCH ×3 (09:03→21:14)
[2018-01-31] MEDS: ENOXAPARIN 40 MG/0.4 ML SYR SC SCH (11:18)
--- NOTE | 2018-01-31 12:19 | HOSPPROG ---
Hospitalist Progress Note Assessment/Plan: 82 yo M w/ hx of COPD, HTN, and recent admission for treatment of CAP presents with sepsis. *acute sepsis -tachycardic -due to pneumonia *pna, residual from CAP diagnosed on 01/19 -blood cx negative, resp path panel was negative on 01/19 -Zosyn (started on 01/26) *oral candidiasis -Clotrimazole yissel added *leukocytosis due to the above *hypokalemia -added oral protocol *dark stools -OB scrren is negative *Acute hypoxemic resp failure -s/p bronchoscopy w thick mucus plugging noted -pulmonology continuing to follow, on more O2 today, but looks a bit better -pathology shows no evidence of malignancy *copd -impacting the above -has significant secretions, RT doing aggressive pulmonary toileting w use of percussion vests, nebs, -steroids added by pulmonology/ 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 Even though the steroids have had an adverse impact on him; recommended he retry them to see if we can ease his breathing. Subjective: Umu feels like he isn't breathing well. Objective: Vital Signs Temp Pulse Resp BP Pulse Ox 36.6 C 85 20 139/78 H 92 01/31/18 07:39 01/31/18 07:39 01/31/18 07:39 01/31/18 08:51 01/31/18 07:39 Microbiology 01/28/18 14:50 Gram Stain - Final Lung Right Upper Lobe - Bronchial Washings Laboratory Results 01/31/18 04:20 01/31/18 04:20 01/30/18 01/31/18 02/01/18 05:59 05:59 05:59 Intake Total 550 2737 Output Total 625 300 175 Balance -75 2437 -175 PT 17.9 SEC (12.0-15.0) H 01/28/18 05:40 INR 1.46 (0.83-1.16) H 01/28/18 05:40 - Physical Exam Constitutional: not in pain, chronically ill appearing Eyes: PERRL Ears, Nose, Mouth, Throat: hearing normal Cardiovascular: regular rate and rhythym, tachycardia Respiratory: reduced air movement (mid lobes down), respiratory distress (when umu gets anxious, he starts to retract with accessory muscle; can calm him and get this to decrease) Skin: warm Musculoskeletal: generalized weakness Neurologic: AAOx3 Psychiatric: not encephalopathic, anxious ICD10 Worksheet Patient Problems: Problems Problem Status Onset Acute respiratory failure with hypoxia Acute Hypoxia Acute Pneumonia Acute Chronic Disease Mgmt/Transitional Care Acute Sepsis Acute
[2018-01-31] MEDS: CLOTRIMAZOLE 10 MG TROCHE PO SCH ×4 (13:58→23:28)
--- NOTE | 2018-01-31 15:09 | SOAPPROG ---
SOAP Progress Note Assessment/Plan: Assessment: Right upper lobe infiltrate. Fairly extensive. Persists despite recent and current treatment for pneumonia. On appropriate antibiotics for possible nosocomial pneumonia. Status post bronchoscopy 01/28. Associated with thick mucus primarily related to the right upper lobe. No obvious malignancy. Cultures negative but on antibiotics when done. Cytology still pending. Biopsies without specific findings. Respiratory distress at this point seems to be associated with episodes of cough and mucus/mucus plugging. In addition, patient appears to become anxious. COPD: Stable. Associated with bullous emphysema. Right upper lobe congestion persists. On nebulized treatments and Mucomyst. Anxiety: Ativan appeared to be poorly tolerated, caused nightmares. Low-dose MS Contin may help dyspnea, anxiety, and sleep if given at night? Prophylaxis: Enoxaparin, ASA. GI: eating CAD: No issues currently. Hypertension: On his outpatient medications. Blood pressure is okay. Metabolic: No issues identified. Plan: Continue Zosyn and bronchopulmonary therapies. Cont Mucomyst. Await further bronchoscopy results, but may not be back till Friday. Steroids started this morning. Hopefully this will help decrease inflammation, mucus, and right upper lobe inflammation. Will tries some MS Contin bid prn. Subjective: Slept poorly last night. Anxious, focused on his breathing. Was short of breath earlier today, probably secondary to mucus plugging. Better now. Objective: Vital Signs Temp Pulse Resp BP Pulse Ox 36.6 C 94 27 H 139/78 H 93 01/31/18 07:39 01/31/18 11:55 01/31/18 11:55 01/31/18 08:51 01/31/18 11:55 Microbiology 01/28/18 14:50 Gram Stain - Final Lung Right Upper Lobe - Bronchial Washings Laboratory Results 01/31/18 04:20 01/31/18 04:20 01/30/18 01/31/18 02/01/18 05:59 05:59 05:59 Intake Total 550 2737 Output Total 625 300 350 Balance -75 2437 -350 PT 17.9 SEC (12.0-15.0) H 01/28/18 05:40 INR 1.46 (0.83-1.16) H 01/28/18 05:40 Cytologies remain pending. Bronch cultures are unremarkable. Yeast is not a pathogen in general. Physical Exam - Physical Exam General Appearance: alert, no apparent distress EENT: PERRL/EOMI, other (Oxygen in place at 6 L comma no change) Neck: normal inspection (No JVD) Respiratory: decreased breath sounds, rhonchi, wheezing (Wheezing and rhonchi persist over the right upper lobe.), prolonged expiration Cardiac/Chest: regular rate, rhythm, systolic murmur, No gallop Abdomen: normal bowel sounds, non-tender, soft Skin: normal color, warm/dry Extremities: No pedal edema Neuro/Psych: no motor/sensory deficits, No cognition abnormalities ICD10 Worksheet Patient Problems: Problems Problem Status Onset Hypoxia Acute Acute respiratory failure with hypoxia Acute Chronic Disease Mgmt/Transitional Care Acute Sepsis Acute Pneumonia Acute
[2018-01-31] MEDS ORDERED: diphenhydrAMINE 25 MG CAP PO PRN (15:24)
[2018-01-31] MEDS: ASPIRIN 81 MG CHEWABLE TAB PO SCH (21:16)
[2018-01-31] MEDS: MELATONIN 3 MG TAB PO SCH (21:16)
[2018-01-31] MEDS: TAMSULOSIN HCL 0.4 MG CAP PO SCH (21:17)
[2018-01-31] MEDS: morphINE SR 15 MG TAB PO SCH (21:18)
[2018-02-01] MEDS: PIPERACILLIN/TAZO 3.375 GM/DEX 50 ML IV SCH ×2 (05:30→12:15)
[2018-02-01] MEDS: CLOTRIMAZOLE 10 MG TROCHE PO SCH ×5 (05:36→21:03)
[2018-02-01 05:42] LABS: PLATELET COUNT 384 10^3/uL (150-400)
[2018-02-01] MEDS: ACETYLCYSTEINE 20% IH/PO 4 ML VIAL IH SCH ×4 (06:22→22:00)
[2018-02-01] MEDS: IPRATROPIUM/ALBUTEROL 3 ML DEYVIAL IH SCH ×4 (06:22→22:00)
[2018-02-01] MEDS ORDERED: FUROSEMIDE 20 MG/2 ML VIAL IVP ONE (07:37)
[2018-02-01] MEDS: BALSALAZIDE DISODIUM 750 MG CAP PO SCH ×3 (09:38→21:02)
[2018-02-01] MEDS: ENOXAPARIN 40 MG/0.4 ML SYR SC SCH (09:38)
[2018-02-01] MEDS: LISINOPRIL 10 MG TAB PO SCH (09:39)
[2018-02-01] MEDS: MULTIVITAMINS 1 EACH TAB PO SCH (09:39)
[2018-02-01] MEDS: guaiFENesin 600 MG TAB.ER PO SCH ×2 (09:39→20:48)
[2018-02-01] MEDS: predniSONE 20 MG TAB PO SCH (09:39)
[2018-02-01] MEDS: FAMOTIDINE 20 MG TAB PO SCH (09:39)
[2018-02-01] MEDS: morphINE SR 15 MG TAB PO SCH ×2 (09:48→20:48)
[2018-02-01] MEDS: FLUTICASONE/SALMETER 100/50MCG DISKUS IH SCH ×2 (11:05→20:50)
--- NOTE | 2018-02-01 13:12 | ASMTCMCOM ---
CM Note CM Note Notes: CM spoke with floor RN, patient continues on antibiotic treatment, bronchoscopy results are pending. Discharge date TBD. CM to follow. Date Signed: 02/01/2018 01:11 PM Electronically Signed By:Italia Jeffries
--- NOTE | 2018-02-01 13:26 | HOSPPROG ---
Hospitalist Progress Note Assessment/Plan: 82 yo M w/ hx of COPD, HTN, and recent admission for treatment of CAP presents with sepsis. *acute sepsis -tachycardic -due to pneumonia *pna, residual from CAP diagnosed on 01/19 -blood cx negative, resp path panel was negative on 01/19 -Zosyn (started on 01/26) *oral candidiasis -Clotrimazole yissel added *leukocytosis due to the above *hypokalemia -added oral protocol *dark stools -OB screen is negative *Acute hypoxemic resp failure -s/p bronchoscopy w thick mucus plugging noted -pulmonology continuing to follow, on more O2 today, but looks a bit better -pathology shows no evidence of malignancy *elevated BNP -will give one low dose of IV Lasix -use of condom catheter so he doesn't get worn out getting OOB -get an echo to evaluate *copd -impacting the above -has significant secretions, RT doing aggressive pulmonary toileting w use of percussion vests, nebs, -steroids added by pulmonology -has significant anxiety due to his COPD, long acting pain med added last night , Huseyin slept well and is feeling better today *CAD *Ongoing Back pain after fairly recent spine surgery -not c/o of this PLANS: check an echocardiogram, cont supportive care. Subjective: Huseyin said he slept well last night and is feeling better today. Objective: Vital Signs Temp Pulse Resp BP Pulse Ox 36.6 C 85 26 H 112/67 91 L 02/01/18 07:49 02/01/18 11:08 02/01/18 11:08 02/01/18 09:39 02/01/18 11:08 Microbiology 01/28/18 14:50 Gram Stain - Final Lung Right Upper Lobe - Bronchial Washings Bronchial Washings Culture - Final Heather Albicans Laboratory Results 02/01/18 04:30 02/01/18 04:30 01/31/18 02/01/18 02/02/18 05:59 05:59 05:59 Intake Total 2737 250 Output Total 304 215 7033 Balance 2437 -150 -1000 PT 17.9 SEC (12.0-15.0) H 01/28/18 05:40 INR 1.46 (0.83-1.16) H 01/28/18 05:40 - Physical Exam Constitutional: not in pain, chronically ill appearing Eyes: PERRL Ears, Nose, Mouth, Throat: hearing normal Cardiovascular: regular rate and rhythym Respiratory: expiratory wheeze, rhonchi Gastrointestinal: normoactive bowel sounds Skin: warm Musculoskeletal: generalized weakness Neurologic: AAOx3 Psychiatric: interacting appropriately ICD10 Worksheet Patient Problems: Problems Problem Status Onset Acute respiratory failure with hypoxia Acute Hypoxia Acute Pneumonia Acute Chronic Disease Mgmt/Transitional Care Acute Sepsis Acute
--- NOTE | 2018-02-01 16:58 | SOAPPROG ---
SOAP Progress Note Assessment/Plan: Assessment: Right upper lobe infiltrate. Fairly extensive. Persists despite recent and current treatment for pneumonia. On appropriate antibiotics for possible nosocomial pneumonia. Status post bronchoscopy 01/28. Associated with thick mucus primarily related to the right upper lobe. No obvious malignancy. Cultures negative but on antibiotics when done. Cytology still pending. Biopsies without specific findings. Respiratory distress is significantly better today, probably secondary to initiation of steroids 2 days ago. COPD: Stable. Associated with bullous emphysema. Right upper lobe congestion persists. On nebulized treatments and Mucomyst, prednisone. Anxiety: Ativan appeared to be poorly tolerated, caused nightmares. Low-dose MS Contin given last night which apparently helped him sleep. Prophylaxis: Enoxaparin, ASA. GI: eating CAD: No issues currently. Hypertension: On his outpatient medications. Blood pressure is okay. Metabolic: No issues identified. Plan: Continue Zosyn and bronchopulmonary therapies. Cont Mucomyst and steroid. Await cytology results, hopefully back tomorrow. Continuing MS Contin at night may be of benefit. He probably does not need this in the AM. I will repeat a two view chest x-ray tomorrow and get spirometry. Subjective: Feels much better today. Got some sleep last night after getting MS Contin. Still has some cough and mucus but less short of breath and no further episodes of cough associated with mucus plugging. Objective: Vital Signs Temp Pulse Resp BP Pulse Ox 36.6 C 87 16 144/85 H 93 02/01/18 16:00 02/01/18 16:00 02/01/18 16:00 02/01/18 16:00 02/01/18 16:00 Microbiology 01/28/18 14:50 Gram Stain - Final Lung Right Upper Lobe - Bronchial Washings Bronchial Washings Culture - Final Heather Albicans Laboratory Results 02/01/18 04:30 02/01/18 04:30 01/31/18 02/01/18 02/02/18 05:59 05:59 05:59 Intake Total 2737 250 Output Total 174 505 8224 Balance 2437 -150 -1150 PT 17.9 SEC (12.0-15.0) H 01/28/18 05:40 INR 1.46 (0.83-1.16) H 01/28/18 05:40 Bronch wash: Nothing further. Only yeast/Heather coming up on cultures: Not considered a pathogen. Cytologies: Pending Physical Exam - Physical Exam General Appearance: alert, no apparent distress, thin, other (Looks much better today) EENT: PERRL/EOMI, other (Nasal cannula in place at 5 L) Neck: normal inspection (No JVD) Respiratory: decreased breath sounds, wheezing (Persists over right upper lobe: localized), prolonged expiration, No respiratory distress, No rhonchi Cardiac/Chest: regular rate, rhythm, No gallop Abdomen: normal bowel sounds, non-tender, soft Skin: normal color, warm/dry Extremities: No pedal edema Neuro/Psych: no motor/sensory deficits, No cognition abnormalities ICD10 Worksheet Patient Problems: Problems Problem Status Onset Acute respiratory failure with hypoxia Acute Hypoxia Acute Pneumonia Acute Chronic Disease Mgmt/Transitional Care Acute Sepsis Acute
[2018-02-01] MEDS: PIPERACILLIN SODIUM/TAZOBACTAM 3.375 GM in D5W 50 ML IV SCH (17:58)
[2018-02-01] MEDS ORDERED: POTASSIUM CL 10 MEQ TAB PO ONE (20:27)
[2018-02-01] MEDS: ASPIRIN 81 MG CHEWABLE TAB PO SCH (20:47)
[2018-02-01] MEDS: TAMSULOSIN HCL 0.4 MG CAP PO SCH (20:47)
[2018-02-01] MEDS: MELATONIN 3 MG TAB PO SCH (20:48)
[2018-02-02] MEDS: PIPERACILLIN SODIUM/TAZOBACTAM 3.375 GM in D5W 50 ML IV SCH ×4 (00:23→17:53)
[2018-02-02] MEDS: GUAIFENESIN/DM 10 ML UDCUP PO PRN (03:49)
[2018-02-02] MEDS: IPRATROPIUM/ALBUTEROL 3 ML DEYVIAL IH SCH ×3 (05:08→17:22)
[2018-02-02] MEDS: ACETYLCYSTEINE 20% IH/PO 4 ML VIAL IH SCH ×3 (05:08→17:22)
[2018-02-02] MEDS: CLOTRIMAZOLE 10 MG TROCHE PO SCH ×5 (05:53→21:24)
[2018-02-02] MEDS: morphINE SR 15 MG TAB PO SCH ×2 (07:52→21:22)
[2018-02-02] MEDS ORDERED: POTASSIUM CL 10 MEQ TAB PO ONE ×2 (08:01→21:25)
[2018-02-02] MEDS: FAMOTIDINE 20 MG TAB PO SCH (08:10)
[2018-02-02] MEDS: predniSONE 20 MG TAB PO SCH (08:10)
[2018-02-02] MEDS: guaiFENesin 600 MG TAB.ER PO SCH ×2 (08:10→21:21)
[2018-02-02] MEDS: BALSALAZIDE DISODIUM 750 MG CAP PO SCH ×3 (08:10→21:22)
[2018-02-02] MEDS: MULTIVITAMINS 1 EACH TAB PO SCH (08:10)
[2018-02-02] MEDS: ENOXAPARIN 40 MG/0.4 ML SYR SC SCH (08:10)
[2018-02-02] MEDS: LISINOPRIL 10 MG TAB PO SCH (08:10)
[2018-02-02] MEDS: FLUTICASONE/SALMETER 100/50MCG DISKUS IH SCH ×2 (08:20→21:23)
--- NOTE | 2018-02-02 10:48 | ASMTCMCOM ---
CM Note CM Note Notes: Order for Palliative Care placed - touch based with Jairo (PC), no consult time scheduled as of yet. Continue to anticipate d/c to [facility] when medically stable. CM will follow. Plan: [facility] with possible outpatient PC pending consult. Date Signed: 02/02/2018 10:48 AM Electronically Signed By:Lala Quesada RN
--- NOTE | 2018-02-02 12:18 | HOSPPROG ---
Hospitalist Progress Note Assessment/Plan: 82 yo M w/ hx of COPD, HTN, and recent admission for treatment of CAP presents with sepsis. *acute sepsis -tachycardic -due to pneumonia *pna, residual from CAP diagnosed on 01/19 -blood cx negative, resp path panel was negative on 01/19 -Zosyn (started on 01/26)-dc when ok with Dr Valverde *oral candidiasis -Clotrimazole yissel added -looks much improved -will cont while on the antibiotics *throat lump -looks like his uvula has some type of lump and it's bothering him -will ask ENT to evaluate *leukocytosis due to the above *hypokalemia -added oral protocol *dark stools -OB screen is negative *Acute hypoxemic resp failure -s/p bronchoscopy w thick mucus plugging noted -pulmonology continuing to follow, on more O2 today, but looks a bit better -pathology shows no evidence of malignancy *elevated BNP -will give one low dose of IV Lasix -f/u with the echo *copd -impacting the above -has significant secretions, RT doing aggressive pulmonary toileting w use of percussion vests, nebs, -steroids added by pulmonology and this has helped significantly -has significant anxiety due to his COPD, long acting pain med added last night , Huseyin slept well and is feeling better today *CAD *Ongoing Back pain after fairly recent spine surgery -not c/o of this PLANS: appreciate Dr Nayak seeing Huseyin today. Also, appreciate Palliative care team w the clarification of his Code status. Verified w Huseyin and he wants CPR but no intubation due to his lung status. > 30 minutes working w Huseyin, talking w Dr Nayak and the Palliative Care team. Subjective: Huseyin is c/o lump that comes and goes at the back of his throat. Objective: Vital Signs Temp Pulse Resp BP Pulse Ox 36.5 C 67 18 152/83 H 94 02/02/18 08:06 02/02/18 08:06 02/02/18 08:06 02/02/18 08:10 02/02/18 08:06 Laboratory Results 02/01/18 04:30 02/02/18 04:25 02/01/18 02/02/18 02/03/18 05:59 05:59 05:59 Intake Total 250 1100 Output Total 400 2175 250 Balance -150 -1075 -250 PT 17.9 SEC (12.0-15.0) H 01/28/18 05:40 INR 1.46 (0.83-1.16) H 01/28/18 05:40 - Physical Exam Constitutional: not in pain, chronically ill appearing Eyes: PERRL Ears, Nose, Mouth, Throat: hearing normal, other (was able to see a small circular lump by the uvula) Cardiovascular: regular rate and rhythym Respiratory: no respiratory distress, reduced air movement (lung sounds are better today and he is moving air better), expiratory wheeze Skin: warm Musculoskeletal: generalized weakness Neurologic: AAOx3 Psychiatric: interacting appropriately ICD10 Worksheet Patient Problems: Problems Problem Status Onset Acute respiratory failure with hypoxia Acute Hypoxia Acute Pneumonia Acute Chronic Disease Mgmt/Transitional Care Acute Sepsis Acute
--- NOTE | 2018-02-02 13:45 | ASMTCMCOM ---
CM Note CM Note Notes: Patient referral made to [facility] per Jairo Belle. CM will follow. Date Signed: 02/02/2018 01:45 PM Electronically Signed By:Isi Salcedo LCSW
[2018-02-02] MEDS ORDERED: CANN-EASE 2 GM TUBE TP PRN (15:10)
--- NOTE | 2018-02-02 15:16 | ECHO ---
[email or web address] [address] [address] Main: [phone] Fax: Transthoracic Echocardiogram Name: LUZ MARIA BEARD MR#: [id number] Study Date: 02/02/2018 Study Time: 09:01 AM Date of : 1935 Age: 82 year(s) Height: 180.3 cm (71 in.) Weight: 74.39 kg (164 lb.) BSA: 1.94 m2 Gender: Male Examination: Echo Indication: COPD, PNA, Shortness of breath Image Quality: Contrast: Requested by: Camille Parikh BP: 152 mmHg/83 mmHg Heart Rate: Rhythm: Normal sinus rhythm with ectopy Indication: COPD, PNA, Shortness of breath Procedure Staff Fitter Helper: Max Hoskins RDCS Reading Physician: Alan Darling MD Requesting Provider: Conclusions: Normal global systolic LV function. EF is 55 %. Trivial mitral valve regurgitation. Mild aortic cusp calcification is noted. Right Ventricular systolic pressure is measured at 52 mmHg. Measurements: Chambers Valvular Assessment AV/MV Valvular Assessment TV/PV Normal Normal Normal Name Value Range Name Value Range Name Value Range Ao Tiffanie (MM): 3.7 cm (2.2 cm-3.7 AV Vmax: 0.90 m/s (1 m/s-1.7 TR Vmax: 3.41 mm/s ( - ) cm) m/s) TR PGmax: 47 mmHg ( - ) IVSd (2D): 0.6 cm (0.6 cm-1.1 AV maxP mmHg ( - ) syst. PAP: 52 mmHg ( - ) cm) LVOT Vmax: 0.72 m/s (0.7 m/s-1.1 PV Vmax: 0.86 m/s (0.6 m/s-0.9 LVDd (2D): 4.8 cm (4.2 cm-5.9 m/s) m/s) cm) MV E Vmax: 0.60 m/s ( - ) PV PGmax: 3 mmHg ( - ) LVDs (2D): 2.9 cm (2.1 cm-4 MV A Vmax: 0.74 m/s ( - ) cm) MV E/A: 0.81 ( - ) LVPWd (2D): 0.9 cm (0.6 cm-1 cm) LVEF (2D): 55 (>=54 %) RVDd(2D): 2.9 cm (1.9 cm-3.8 cmmm) Continued Measurements: Chambers Valvular Assessment AV/MV Valvular Assessment TV/PV Name Value Name Value Name Value LADs Lon.3 cm MV E/E' Septal: 10.80 CVP (est.): 5 mmHg LA Area: 18.2 cm2 MV E/E' Lateral: 6.80 Patient: LUZ MARIA BEARD Study Date: 02/02/2018 Page 1 of 2 09:01 AM Findings: Left Ventricle: Normal size left ventricle. No LV hypertrophy. Normal global systolic LV function. EF is 55 %. No regional wall motion abnormality. Grade 1 diastolic dysfunction (abnormal relaxation). Right Ventricle: Normal size right ventricle. Normal RV function. Left Atrium: The left atrium is normal in size. Right Atrium: The right atrium is normal in size. Mitral Valve: The mitral valve is normal in appearance and function. Trivial mitral valve regurgitation. No mitral stenosis is present. Aortic Valve: Mild aortic cusp calcification is noted. The aortic valve is tri-leaflet. No aortic valve stenosis is present. There is no aortic valve regurgitation. Tricuspid Valve: The tricuspid valve appears normal. The pulmonary artery pressure is mildly increased. Right Ventricular systolic pressure is measured at 52 mmHg. Pulmonic Valve: The pulmonic valve is normal in appearance and function. Trivial pulmonic valve regurgitation. Aorta: The aorta is normal. Pericardium: No pericardial effusion. (No Signature Object) Patient: LUZ MARIA BEARD Study Date: 02/02/2018 Page 2 of 2 09:01 AM [id number]
--- NOTE | 2018-02-02 17:18 | GCON ---
EARS, NOSE, AND THROAT CONSULTATION DATE OF CONSULTATION: 02/02/2018 REASON FOR CONSULTATION: Uvular lesion. HISTORY OF PRESENT ILLNESS: This 82-year-old gentleman was hospitalized 2017 for COPD exacerbation and community-acquired pneumonia. He has noted since admission over the last few days a lesion on the roof of his mouth, back of his throat. He was evaluated by the hospitalist, who noted a lesion on his uvula. ENT was asked to evaluate. He did have bronchoscopy completed 1 week ago. PAST MEDICAL HISTORY: Remarkable for COPD, hypertension, reflux. Please see chart for full list. MEDICATIONS: His list is attached. ALLERGIES: Sulfa. PAST SURGICAL HISTORY: Back surgery. SOCIAL HISTORY: As per chart. Noncontributory. FAMILY HISTORY: Noncontributory. REVIEW OF SYSTEMS: Denies difficulty swallowing. From an ENT standpoint, otherwise not contributory. PHYSICAL EXAMINATION: GENERAL: This is a pleasant 82-year-old man in no apparent distress. He was evaluated at the bedside. VITAL SIGNS: 162/93, heart rate 77, respirations 12, oxygen 96 on 5 L of oxygen, temperature 36.7 degrees Celsius. HEENT EXAMINATION: Mucous membranes are moist. No evidence of candidiasis. There is an approximately 1 cm area of white to yellow discoloration on the tip of his uvula. It does not appear to be purulent nor infected. No evidence of candidiasis. Oral exam otherwise unremarkable. No noticeable lymphadenopathy. He is breathing well with oxygen cannula in place. The rest of the exam is otherwise unremarkable. ASSESSMENT: Irritation of uvula, likely secondary to bronchoscopy performed a week ago. Discussed that this tissue will likely slough off. It is not concerning at this time. If it persists, we can reevaluate and would discuss biopsy for definitive diagnosis. Discussed case and plan with Dr. Nayak. /[id number]/MODL MTDD
[2018-02-02] MEDS: TAMSULOSIN HCL 0.4 MG CAP PO SCH (21:21)
[2018-02-02] MEDS: MELATONIN 3 MG TAB PO SCH (21:21)
[2018-02-02] MEDS: ASPIRIN 81 MG CHEWABLE TAB PO SCH (21:21)
[2018-02-03] MEDS: IPRATROPIUM/ALBUTEROL 3 ML DEYVIAL IH SCH ×5 (00:10→20:44)
[2018-02-03] MEDS: ACETYLCYSTEINE 20% IH/PO 4 ML VIAL IH SCH ×6 (00:10→20:57)
[2018-02-03] MEDS: PIPERACILLIN SODIUM/TAZOBACTAM 3.375 GM in D5W 50 ML IV SCH ×3 (00:53→12:25)
[2018-02-03] MEDS: CLOTRIMAZOLE 10 MG TROCHE PO SCH ×5 (05:19→21:05)
[2018-02-03] MEDS: ACETAMINOPHEN 325 MG TAB PO PRN (05:23)
[2018-02-03] MEDS: ENOXAPARIN 40 MG/0.4 ML SYR SC SCH (09:04)
[2018-02-03] MEDS: BALSALAZIDE DISODIUM 750 MG CAP PO SCH ×3 (09:04→21:05)
[2018-02-03] MEDS: MULTIVITAMINS 1 EACH TAB PO SCH (09:05)
[2018-02-03] MEDS: guaiFENesin 600 MG TAB.ER PO SCH ×2 (09:05→21:05)
[2018-02-03] MEDS: LISINOPRIL 10 MG TAB PO SCH (09:05)
[2018-02-03] MEDS: FAMOTIDINE 20 MG TAB PO SCH (09:06)
[2018-02-03] MEDS: predniSONE 20 MG TAB PO SCH (09:06)
[2018-02-03] MEDS: FLUTICASONE/SALMETER 100/50MCG DISKUS IH SCH ×3 (10:05→20:44)
[2018-02-03] MEDS ORDERED: POTASSIUM CL 10 MEQ TAB PO ONE ×2 (13:13→19:58)
--- NOTE | 2018-02-03 13:54 | HOSPPROG ---
Hospitalist Progress Note Assessment/Plan: 82 yo M w/ hx of COPD, HTN, and recent admission for treatment of CAP presents with sepsis. *acute sepsis -tachycardic -due to pneumonia -resolving *pna, residual from CAP diagnosed on 01/19 -blood cx negative, resp path panel was negative on 01/19 -Zosyn (started on 01/26)-has had full treatment, will dc *oral candidiasis -Clotrimazole yissel added -looks much improved -will cont while on the antibiotics *uvula lesion -ENT evaluated -he has requested further evaluation, wants it removed and biopsied -he is fearful he will choke on it *leukocytosis due to the above *hypokalemia -added oral protocol *dark stools -OB screen is negative *Acute hypoxemic resp failure -s/p bronchoscopy w thick mucus plugging noted -pulmonology continuing to follow, on more O2 today, but looks a bit better -pathology shows no evidence of malignancy *elevated BNP -will give one low dose of IV Lasix -echo shows nothing acute *copd -impacting the above -has significant secretions, RT doing aggressive pulmonary toileting w use of percussion vests, nebs, -steroids added by pulmonology and this has helped significantly -has significant anxiety due to his COPD, long acting pain med added, Huseyin slept well and is feeling better today *CAD *Ongoing Back pain after fairly recent spine surgery -not c/o of this -the long acting pain medication has helped this *generalized weakness -he is anxious to go home and take care of things -reviewed w him how weak he is and the need for strengthening at a SNF PLANS: spoke w CM and they will review w him about SNF placement; appreciate ENT seeing him. Subjective: Huseyin is breathing much better, upset about the lump on his uvula. Objective: Vital Signs Temp Pulse Resp BP Pulse Ox 36.7 C 78 14 146/84 H 92 02/03/18 07:09 02/03/18 07:09 02/03/18 07:09 02/03/18 07:09 02/03/18 07:09 Microbiology 01/28/18 14:50 Mycobacterial Smear (LEE) - Final Lung Right Upper Lobe - Bronchial Washings Laboratory Results 02/01/18 04:30 02/03/18 04:16 02/02/18 02/03/18 02/04/18 05:59 05:59 05:59 Intake Total 1100 840 Output Total 2175 650 Balance -1075 190 PT 17.9 SEC (12.0-15.0) H 01/28/18 05:40 INR 1.46 (0.83-1.16) H 01/28/18 05:40 - Physical Exam Constitutional: no apparent distress, not in pain, chronically ill appearing Eyes: PERRL Ears, Nose, Mouth, Throat: hearing normal Cardiovascular: regular rate and rhythym Respiratory: no respiratory distress, reduced air movement (right upper and middle lobe,lungs tight sounding. ) Skin: warm Musculoskeletal: generalized weakness Neurologic: AAOx3 Psychiatric: interacting appropriately ICD10 Worksheet Patient Problems: Problems Problem Status Onset Acute respiratory failure with hypoxia Acute Hypoxia Acute Pneumonia Acute Chronic Disease Mgmt/Transitional Care Acute Sepsis Acute
--- NOTE | 2018-02-03 16:17 | SOAPPROG ---
SOAP Progress Note Assessment/Plan: Assessment/Plan: Necrotic, elongated uvula secondary to bronchoscopy 1 week. He continues to complain that is bothersome and wishes to have it removed. Discussed procedure, risks, complication of removing end of uvula. After verbal consent was obtained, patient's uvula was anesthetized with 1 cc of 1%lidocaine/epi/Marcaine. The bottom 1cm of the uvula was then excised. Bleeding controlled with two passes of silver nitrate. Patient tolerated it well. He was monitored for further bleeding or difficulty breathing. Resume normal diet. Follow up as needed. Plan reviewed with Dr. Mack. 02/03/18 16:12 Objective: Vital Signs Temp Pulse Resp BP Pulse Ox 36.9 C 82 20 157/81 H 92 02/03/18 15:25 02/03/18 15:25 02/03/18 15:25 02/03/18 15:25 02/03/18 15:25 Microbiology 01/28/18 14:50 Mycobacterial Smear (LEE) - Final Lung Right Upper Lobe - Bronchial Washings Laboratory Results 02/01/18 04:30 02/03/18 04:16 02/02/18 02/03/18 02/04/18 05:59 05:59 05:59 Intake Total 1100 840 Output Total 2175 650 Balance -1075 190 PT 17.9 SEC (12.0-15.0) H 01/28/18 05:40 INR 1.46 (0.83-1.16) H 01/28/18 05:40 ICD10 Worksheet Patient Problems: Problems Problem Status Onset Acute respiratory failure with hypoxia Acute Hypoxia Acute Pneumonia Acute Chronic Disease [facility]/Transitional Care Acute Sepsis Acute
--- NOTE | 2018-02-03 16:36 | PDINTPN ---
Insurance Checker Progress Note Assessment/Plan: Assessment: Right upper lobe infiltrate. Fairly extensive. Persists despite recent and current treatment for pneumonia. On appropriate antibiotics for possible nosocomial pneumonia. Status post bronchoscopy 01/28. Associated with thick mucus primarily related to the right upper lobe. No obvious malignancy. Cultures negative but on antibiotics when done. Biopsies without specific findings. Symptoms continue to improve. COPD: Stable. Associated with bullous emphysema. Right upper lobe congestion persists. On nebulized treatments and Mucomyst, prednisone. Anxiety: Low-dose MS Contin given which apparently helped him sleep. CAD: No issues currently. Hypertension: On his outpatient medications. Blood pressure is okay. Metabolic: No issues identified. Plan: Continue Zosyn and bronchopulmonary therapies. Cont Mucomyst and prednisone. Continuing MS Contin for now. Increase activity. Probably can D/C [place] by tomorrow. Subjective: Feels a bit better, sleeping better. Cough improved, minimally productive. Still weak, slowly improving. Objective: Vital Signs Temp Pulse Resp BP Pulse Ox 36.9 C 82 20 157/81 H 92 02/03/18 15:25 02/03/18 15:25 02/03/18 15:25 02/03/18 15:25 02/03/18 15:25 Microbiology 01/28/18 14:50 Mycobacterial Smear (LEE) - Final Lung Right Upper Lobe - Bronchial Washings Laboratory Results 02/01/18 04:30 02/03/18 04:16 02/02/18 02/03/18 02/04/18 05:59 05:59 05:59 Intake Total 1100 840 Output Total 2175 650 Balance -1075 190 PT 17.9 SEC (12.0-15.0) H 01/28/18 05:40 INR 1.46 (0.83-1.16) H 01/28/18 05:40 01/28/18 bronch: Cytology and pathology negative for malignancy. CXR 02/02: Improved, but persistent RUL infiltrate. Images reviewed by me. Physical Exam - Physical Exam General Appearance: alert, no apparent distress EENT: normal ENT inspection Neck: normal inspection Respiratory: crackles, wheezing Cardiac/Chest: regular rate, rhythm, No edema Abdomen: normal bowel sounds, non-tender Skin: normal color, warm/dry Extremities: normal inspection Neuro/Psych: alert, normal mood/affect, oriented x 3 ICD10 Worksheet Patient Problems: Problems Problem Status Onset Acute respiratory failure with hypoxia Acute Hypoxia Acute Pneumonia Acute Chronic Disease Mgmt/Transitional Care Acute Sepsis Acute
[2018-02-03] MEDS: ASPIRIN 81 MG CHEWABLE TAB PO SCH (21:05)
[2018-02-03] MEDS: MELATONIN 3 MG TAB PO SCH (21:05)
[2018-02-03] MEDS: TAMSULOSIN HCL 0.4 MG CAP PO SCH (21:06)
[2018-02-03] MEDS: morphINE SR 15 MG TAB PO SCH (21:11)
[2018-02-04] MEDS ORDERED: PIPERACILLIN/TAZO 3.375 GM/DEX 50 ML IV SCH
[2018-02-04] MEDS: ACETYLCYSTEINE 20% IH/PO 4 ML VIAL IH SCH ×2 (05:44→09:44)
[2018-02-04] MEDS: IPRATROPIUM/ALBUTEROL 3 ML DEYVIAL IH SCH ×4 (05:47→22:24)
[2018-02-04 06:09] LABS: PLATELET COUNT 441 10^3/uL (150-400)
[2018-02-04] MEDS: CLOTRIMAZOLE 10 MG TROCHE PO SCH ×3 (06:10→14:10)
[2018-02-04] MEDS ORDERED: POTASSIUM CL 10 MEQ TAB PO ONE ×2 (07:55→21:24)
[2018-02-04] MEDS: predniSONE 20 MG TAB PO SCH (08:40)
[2018-02-04] MEDS: BALSALAZIDE DISODIUM 750 MG CAP PO SCH ×3 (08:43→21:47)
[2018-02-04] MEDS: FAMOTIDINE 20 MG TAB PO SCH (08:44)
[2018-02-04] MEDS: MULTIVITAMINS 1 EACH TAB PO SCH (08:44)
[2018-02-04] MEDS: LISINOPRIL 10 MG TAB PO SCH (08:45)
[2018-02-04] MEDS: guaiFENesin 600 MG TAB.ER PO SCH ×2 (08:45→21:47)
[2018-02-04] MEDS: ENOXAPARIN 40 MG/0.4 ML SYR SC SCH (08:46)
[2018-02-04] MEDS: FLUTICASONE/SALMETER 100/50MCG DISKUS IH SCH ×2 (09:44→22:24)
--- NOTE | 2018-02-04 12:56 | HOSPPROG ---
Hospitalist Progress Note Assessment/Plan: 82 yo M w/ hx of COPD, HTN, and recent admission for treatment of CAP presents with sepsis. *acute sepsis -tachycardic -due to pneumonia -resolved *pna, residual from CAP diagnosed on 01/19 -blood cx negative, resp path panel was negative on 01/19 -Zosyn (started on 01/26)-has had full treatment, discontinued -procalcitonin a bit elevated, will defer to pulmonology if they would like continued abx *oral candidiasis -treated w Clotrimazole yissel added *uvula lesion s/p removal -appreciate ENT *leukocytosis due to the above -also on steroids *hypokalemia -added oral protocol *dark stools -OB screen is negative *Acute hypoxemic resp failure -s/p bronchoscopy w thick mucus plugging noted -slowly improving, now on 4 liters *elevated BNP -will give one low dose of IV Lasix -echo shows nothing acute *copd -impacting the above -steroids have really helped -Dr Valverde added long acting morphine at night which has helped in w sleep and anxiety *Ongoing Back pain after fairly recent spine surgery -not c/o of this -the long acting pain medication has helped this *generalized weakness -he is agreeable to go to SNF- plan is for [facility](new rehab facility) PLANS: if stable, can dc or Friday to SNF. During his stay he met w Palliative care team and he said he wants CPR but no intubation. His sister is coming to town on and will get his personal belongings for him to take to rehab. On dc, recommending continued long acting pain medication. Subjective: Huseyin is feeling fine except had some bleeding after area removed from uvula. Objective: Vital Signs Temp Pulse Resp BP Pulse Ox 36.6 C 76 17 166/83 H 94 02/04/18 07:50 02/04/18 09:46 02/04/18 09:46 02/04/18 08:45 02/04/18 09:46 Microbiology 01/28/18 14:50 Mycobacterial Smear (LEE) - Final Lung Right Upper Lobe - Bronchial Washings Laboratory Results 02/04/18 04:15 02/04/18 04:15 02/03/18 02/04/18 02/05/18 05:59 05:59 05:59 Intake Total 840 955 Output Total 650 1200 Balance 190 -245 PT 17.9 SEC (12.0-15.0) H 01/28/18 05:40 INR 1.46 (0.83-1.16) H 01/28/18 05:40 - Physical Exam Constitutional: appears nourished, not in pain, chronically ill appearing Eyes: PERRL Ears, Nose, Mouth, Throat: hearing normal Cardiovascular: regular rate and rhythym Respiratory: no respiratory distress, expiratory wheeze, rhonchi (few scattered) Genitourinary: other (condom cath w cifuentes bag attached) Skin: warm Musculoskeletal: generalized weakness Neurologic: AAOx3 Psychiatric: interacting appropriately ICD10 Worksheet Patient Problems: Problems Problem Status Onset Acute respiratory failure with hypoxia Acute Hypoxia Acute Pneumonia Acute Chronic Disease Mgmt/Transitional Care Acute Sepsis Acute
--- NOTE | 2018-02-04 14:08 | ASMTCMCOM ---
CM Note CM Note Notes: Katerine from [facility] stopped by and met w/ pt. Anticipate d/c for either tomorrow or Friday. CM spoke to pts sister Herminia. She plans on flying in tomorrow w/ her . CM provided her updates. CM to follow. Plan: [facility] Date Signed: 02/04/2018 02:07 PM Electronically Signed By:SENG Gama
[2018-02-04] MEDS ORDERED: hydrALAZINE 10 MG TAB PO PRN (14:36)
--- NOTE | 2018-02-04 15:47 | PDINTPN ---
Draughtsman Progress Note Assessment/Plan: Assessment: Right upper lobe infiltrate. Fairly extensive. Persists despite recent and current treatment for pneumonia. On appropriate antibiotics for possible nosocomial pneumonia. Status post bronchoscopy 01/28. Associated with thick mucus primarily related to the right upper lobe. No obvious malignancy. Cultures negative but on antibiotics when done. Biopsies without specific findings. Symptoms continue to improve. COPD: Stable. Associated with bullous emphysema. Right upper lobe congestion persists. On nebulized treatments and Mucomyst, prednisone. Anxiety: Low-dose MS Contin given which apparently helped him sleep. CAD: No issues currently. Hypertension: On his outpatient medications. Blood pressure is okay. Metabolic: No issues identified. Plan: Continue to observe off antibiotics. Stop Mucomyst, continue guaifenesin , Advair, and prednisone, change albuterol to Duonebs. Continuing MS Contin for now, stop at discharge. Increase activity. Check CXR tomorrow, probably D/C home tomorrow or Friday. 02/04/18 15:45 02/04/18 15:47 Subjective: Continues to feels better, with less productive cough. Strength/energy improved. Objective: Vital Signs Temp Pulse Resp BP Pulse Ox 36.6 C 76 18 164/84 H 93 02/04/18 07:50 02/04/18 09:46 02/04/18 14:13 02/04/18 14:13 02/04/18 14:13 Microbiology 01/28/18 14:50 Mycobacterial Smear (LEE) - Final Lung Right Upper Lobe - Bronchial Washings Laboratory Results 02/04/18 04:15 02/04/18 04:15 02/03/18 02/04/18 02/05/18 05:59 05:59 05:59 Intake Total 840 955 Output Total 650 1200 500 Balance 190 -245 -500 PT 17.9 SEC (12.0-15.0) H 01/28/18 05:40 INR 1.46 (0.83-1.16) H 01/28/18 05:40 Laboratory Tests 02/04/18 04:15 Procalcitonin 0.16 H Physical Exam - Physical Exam General Appearance: alert, no apparent distress EENT: normal ENT inspection Neck: normal inspection Respiratory: normal breath sounds, crackles, wheezing Cardiac/Chest: regular rate, rhythm, No edema Abdomen: normal bowel sounds, non-tender, soft Skin: normal color, warm/dry Extremities: normal inspection Neuro/Psych: alert, normal mood/affect, oriented x 3 ICD10 Worksheet Patient Problems: Problems Problem Status Onset Acute respiratory failure with hypoxia Acute Hypoxia Acute Pneumonia Acute Chronic Disease Mgmt/Transitional Care Acute Sepsis Acute
[2018-02-04] MEDS: MELATONIN 3 MG TAB PO SCH (21:47)
[2018-02-04] MEDS: morphINE SR 15 MG TAB PO SCH (21:47)
[2018-02-04] MEDS: TAMSULOSIN HCL 0.4 MG CAP PO SCH (21:48)
[2018-02-04] MEDS: ASPIRIN 81 MG CHEWABLE TAB PO SCH (21:48)
[2018-02-05] MEDS: IPRATROPIUM/ALBUTEROL 3 ML DEYVIAL IH SCH ×4 (05:51→20:38)
[2018-02-05] MEDS ORDERED: POTASSIUM CL 10 MEQ TAB PO ONE (07:21)
[2018-02-05] MEDS: guaiFENesin 600 MG TAB.ER PO SCH ×2 (09:08→20:26)
[2018-02-05] MEDS: predniSONE 20 MG TAB PO SCH (09:08)
[2018-02-05] MEDS: FAMOTIDINE 20 MG TAB PO SCH (09:08)
[2018-02-05] MEDS: MULTIVITAMINS 1 EACH TAB PO SCH (09:08)
[2018-02-05] MEDS: ENOXAPARIN 40 MG/0.4 ML SYR SC SCH (09:09)
[2018-02-05] MEDS: LISINOPRIL 10 MG TAB PO SCH (09:09)
[2018-02-05] MEDS: BALSALAZIDE DISODIUM 750 MG CAP PO SCH ×3 (09:12→20:26)
--- NOTE | 2018-02-05 09:41 | HOSPPROG ---
Hospitalist Progress Note Assessment/Plan: This is an 82 yo M w/ hx of long standing COPD (not oxygen dependant) who was admitted with CAP and Sepsis. He was treated with Zosyn and this was discontinue on 02/04. He is currently off abx. He cont on steroids. He cont to require 4 L O2 *acute sepsis -tachycardic -due to pneumonia -resolved *pna, residual from CAP diagnosed on 01/19 -blood cx negative, resp path panel was negative on 01/19 -Zosyn (started on 01/26)-has had full treatment, discontinued *oral candidiasis, resolved -treated w Clotrimazole yissel added *uvula lesion potentially from bronchoscopy per ENT note, s/p removal -appreciate ENT *leukocytosis due to the above -also on steroids *hypokalemia -on oral protocol *dark stools -OB screen is negative *Acute hypoxemic resp failure -s/p bronchoscopy w thick mucus plugging noted -slowly improving, now on 4 liters *elevated BNP -He is Euvolemic and there are no signs of heart failure -echo shows nothing acute *copd -impacting the above -steroids have really helped -Dr Valverde added long acting morphine at night which has helped in w sleep and anxiety *acute on chronic back pain with fairly recent spine surgery -not c/o of pain at this time *generalized weakness -he is agreeable to go to SNF- plan is for [facility](new rehab facility) *HTN: -increase Lisinopril today PLANS: -resp guillen he appears to be stable on 4 L. His lung exam is c/w bilateral exp wheeze and he would likely benefit from prolonged steroid taper -cont off abx -BP support, Lisinopril increased per above -D/C to [facility] tomorrow. [facility] palliative care will follow as an outpatient. -He wants to try stopping the MS Contin today and this will be discontinued -Lovenox for DVT proph Code: he said he wants CPR but no intubation. Subjective: still on 4 L. Occassional cough. Still with some SOB. Objective: Vital Signs Temp Pulse Resp BP Pulse Ox 36.6 C 91 16 152/84 H 88 L 02/05/18 07:57 02/05/18 07:57 02/05/18 07:57 02/05/18 07:57 02/05/18 07:57 Laboratory Results 02/04/18 04:15 02/05/18 04:13 02/04/18 02/05/18 02/06/18 05:59 05:59 05:59 Intake Total 955 Output Total 1200 800 200 Balance -245 -800 -200 PT 17.9 SEC (12.0-15.0) H 01/28/18 05:40 INR 1.46 (0.83-1.16) H 01/28/18 05:40 - Physical Exam Constitutional: no apparent distress Eyes: PERRL Ears, Nose, Mouth, Throat: moist mucous membranes, hearing normal Cardiovascular: regular rate and rhythym Respiratory: reduced air movement, expiratory wheeze Gastrointestinal: normoactive bowel sounds, soft, non-tender abdomen Skin: warm Musculoskeletal: generalized weakness Neurologic: AAOx3 Psychiatric: interacting appropriately, not anxious, not encephalopathic Lymph, Heme, Immunologic: No petechiae ICD10 Worksheet Patient Problems: Problems Problem Status Onset Acute respiratory failure with hypoxia Acute Hypoxia Acute Pneumonia Acute Chronic Disease Mgmt/Transitional Care Acute Sepsis Acute
[2018-02-05] MEDS: FLUTICASONE/SALMETER 100/50MCG DISKUS IH SCH ×2 (10:44→20:29)
--- NOTE | 2018-02-05 17:04 | PDINTPN ---
Chain Saw Driver Progress Note Assessment/Plan: Assessment: Right upper lobe infiltrate. Fairly extensive. Persists despite recent and current treatment for pneumonia. On appropriate antibiotics for possible nosocomial pneumonia. Status post bronchoscopy 01/28. Associated with thick mucus primarily related to the right upper lobe. No obvious malignancy. Cultures negative but on antibiotics when done. Biopsies without specific findings. Symptoms continue to improve. COPD: Stable. Associated with bullous emphysema. Right upper lobe congestion persists. On nebulized treatments and Mucomyst, prednisone. Anxiety: Low-dose MS Contin given which apparently helped him sleep. CAD: No issues currently. Hypertension: On his outpatient medications. Blood pressure is okay. Metabolic: No issues identified. Plan: Continue to observe off antibiotics. Stop Mucomyst, continue guaifenesin , Advair, and prednisone, change albuterol to Duonebs. Continuing MS Contin for now, stop at discharge. Increase activity. Probably can D/C to SNF tomorrow or Friday. Follow-up with CXR in 1-2 weeks. 02/05/18 17:05 Subjective: Feels breathing is a bit better, less dyspnea. Minimal cough, no sputum. Objective: Vital Signs Temp Pulse Resp BP Pulse Ox 36.6 C 90 16 161/90 H 92 02/05/18 15:07 02/05/18 16:14 02/05/18 16:14 02/05/18 15:07 02/05/18 16:14 Laboratory Results 02/04/18 04:15 02/05/18 04:13 02/04/18 02/05/18 02/06/18 05:59 05:59 05:59 Intake Total 955 Output Total 1200 800 200 Balance -245 -800 -200 PT 17.9 SEC (12.0-15.0) H 01/28/18 05:40 INR 1.46 (0.83-1.16) H 01/28/18 05:40 CXR: Unchanged. Images reviewed by me. Physical Exam - Physical Exam General Appearance: alert, no apparent distress EENT: normal ENT inspection Neck: normal inspection Respiratory: wheezing Cardiac/Chest: regular rate, rhythm, edema Abdomen: normal bowel sounds, non-tender Skin: normal color Extremities: normal inspection Neuro/Psych: alert, normal mood/affect, oriented x 3 ICD10 Worksheet Patient Problems: Problems Problem Status Onset Acute respiratory failure with hypoxia Acute Hypoxia Acute Pneumonia Acute Chronic Disease Mgmt/Transitional Care Acute Sepsis Acute
[2018-02-05] MEDS: TAMSULOSIN HCL 0.4 MG CAP PO SCH (20:26)
[2018-02-05] MEDS: MELATONIN 3 MG TAB PO SCH (20:26)
[2018-02-05] MEDS: ASPIRIN 81 MG CHEWABLE TAB PO SCH (20:26)
[2018-02-06] MEDS: IPRATROPIUM/ALBUTEROL 3 ML DEYVIAL IH SCH ×2 (05:17→11:16)
[2018-02-06] MEDS ORDERED: POTASSIUM CL 10 MEQ TAB PO ONE (07:14)
[2018-02-06 07:26] VITALS: BP 152/80
[2018-02-06] MEDS: LISINOPRIL 10 MG TAB PO SCH (08:58)
[2018-02-06] MEDS: FAMOTIDINE 20 MG TAB PO SCH (09:00)
[2018-02-06] MEDS: BALSALAZIDE DISODIUM 750 MG CAP PO SCH (09:02)
[2018-02-06] MEDS: guaiFENesin 600 MG TAB.ER PO SCH (09:02)
[2018-02-06] MEDS: predniSONE 20 MG TAB PO SCH (09:04)
[2018-02-06] MEDS: MULTIVITAMINS 1 EACH TAB PO SCH (09:04)
[2018-02-06] MEDS: ENOXAPARIN 40 MG/0.4 ML SYR SC SCH (10:34)
[2018-02-06] MEDS: FLUTICASONE/SALMETER 100/50MCG DISKUS IH SCH (11:17)
--- NOTE | 2018-02-06 12:02 | PDDCSUM ---
Discharge Summary Discharge Summary: This is an 82 yo M w/ hx of long standing COPD (not oxygen dependant) who was admitted with CAP and Sepsis. He was treated with Zosyn and this was discontinue on 02/04. He is currently off abx. He cont on steroids. He cont to require 4 L O2 and is stable. He has a RUL infiltrate that is still present on XR. He will be discharged off abx. Dr. Pimentel will cont to see the patient. He is being discharge on a long steroid taper. He is being d/c to [facility] *acute sepsis -resolved *pna, residual from CAP diagnosed on 01/19 -blood cx negative, resp path panel was negative on 01/19 -Zosyn (started on 01/26)-has had full treatment, discontinued *oral candidiasis, resolved -treated w Clotrimazole yissel added *uvula lesion potentially from bronchoscopy per ENT note, s/p removal -appreciate ENT *leukocytosis due to the above -also on steroids *hypokalemia -on oral protocol *dark stools -OB screen is negative *Acute hypoxemic resp failure -s/p bronchoscopy w thick mucus plugging noted -slowly improving, now on 4 liters *elevated BNP -He is Euvolemic and there are no signs of heart failure -echo shows nothing acute *copd -impacting the above -cont steroids *acute on chronic back pain with fairly recent spine surgery -not c/o of pain at this time *generalized weakness -he is agreeable to go to SNF- plan is for [facility](new rehab facility) *HTN: -Lisinopril was increases Exam: ON 4l DECREASED LUNGS SOUNDS NORMAL WORK OF BREATHINGS RRR MED: SEE MED REC TOTAL TIME SPENT ON D/C IS 35 MINS
--- NOTE | 2018-02-06 12:03 | PDIAF ---
- Diagnosis Diagnosis: COPD Code Status: Limited Resuscitation - Medication Management Discharge Medications: Medications to Continue on Transfer Aspirin [Aspirin 81mg (*)] 81 mg PO HS 01/19/18 [Last Taken 01/25/18] Balsalazide Disodium [Colazal (*)] 2,250 mg PO TID 01/19/18 [Last Taken 21:00] Fluticasone/Salmeter 100/50Mcg [Advair 100/50 (*)] 1 puffs IH BID 01/19/18 [ Last Taken 01/25/18 21:00] Herbals/Supplements -Info Only 1 ea PO DAILY 01/19/18 [Last Taken Unknown] Multivitamins [Multivitamin (*)] 1 each PO DAILY 01/19/18 [Last Taken 01/25/18] Ranitidine HCl 75 mg PO DAILY 01/19/18 [Last Taken 01/25/18] Tamsulosin HCl [Flomax 0.4 MG (*)] 0.4 mg PO HS 01/19/18 [Last Taken 01/25/18] Benzonatate [Tessalon Pearles] 200 mg PO TID PRN #20 cap 02/06/18 [Last Taken Unknown] Lisinopril [Zestril 10 mg (*)] 15 mg PO DAILY #45 tab 02/06/18 [Last Taken Unknown] guaiFENesin [Mucinex 600 MG (*)] 1,200 mg PO BID #40 tab.er 02/06/18 [Last Taken Unknown] predniSONE 60 mg PO DAILY #27 tablet 02/06/18 [Last Taken Unknown] Discharge Medications: Refer to the Discharge Home Medication list for PRN reason. - Orders Services needed: Physical Therapy, Occupational Therapy Isolation Type: None Diet Recommendation: no restrictions on diet Diet Texture: Regular Texture Diet Additional Instructions: Activity: as tolerated Please f/u with Dr. whaely in 2 weeks. Please call his office for appt - Follow Up Care Current Providers and Referrals: Patient,NotPresent [Unknown] - As per Instructions
--- NOTE | 2018-02-06 14:25 | ASMTDCNOTE ---
Case Management Discharge Discharge Order Complete? Answers: Yes Patient to Obtain Answers: Other Notes: [facility] in [place] Medications Transportation Arranged Answers: Other Notes: W/C with O2 arranged by María at [facility] Transport will Pick (Date 02/06/2018 02:30 PM & Time) Faxed Final Orders Answers: Yes Notes: to [facility] Agency/Facility Transfer Answers: Yes Notes: to [facility] Report Printed & Faxed to Receiving Agency Discharge Comments Notes: 02/06/2018 Case Management Note Faxed final orders to [facility] in [place]. Called to confirm. Spoke with María who arranged w/c with O2 transport for 1430. RN to call report. Faxed d/c orders to [facility]. Case management d/c poc: [facility] SNF rehab with [facility] Date Signed: 02/06/2018 02:25 PM Electronically Signed By:Florida Edwards RN
--- NOTE | 2018-02-06 14:26 | ASDISCHSUM ---
Discharge Information Plan Status:SNF Medically Cleared to Leave: Discharge Date: D/C Disposition:[facility] Facility [facility] D/C Disposition:[facility] Facility Projected Discharge Date:02/05/2018 11:00 AM Transportation at D/C:[employer]elchair Van Discharge Delay Reason: Follow-Up Date:02/05/2018 11:00 AM Discharge Slot: Final Diagnosis:Respiratory Failure, Hypoxia, PNA, Urinary frequency Placement Information Referral Type:*Intermediate/SNF Referral ID:[id number] Provider Name:Mae palomo [place] Address 1:[address] Address 2: City:[place] Selection Factors: State:[place] Referral Type:Palliative Care Referral ID:[id number] Provider Name:[facility] Address 1:[address] Phone Number: Address 2: Fax Number: [facility] Selection Factors: State:[place] Patient Contact Information Contact Name:JOSE ARMANDO Relationship:Sister Address:[address] Work Phone: City:[place] Alternate Phone: [facility]/Zip Code:[place] [address] Email: Financial Information Financial Class:Medicare Primary Plan Desc:MEDICARE INPATIENT Primary Plan Number:[id number] Secondary Plan Desc:RUST Secondary Plan Number:[id number] Assessment Information [facility] CM Progress Note CM Note CM Note Notes: 82yr old male admitted for Respiratory Failure, Hypoxia, PNA, Urinary frequency. He had been discharged on 01/21 with similar dx and went home on O2. Patient has a Hx of COPD, HTN, a former smoker, Back Surgery. Patient lives in [place] and his sister Herminia is his [phone]. CM to follow for possible discharge needs. Date Signed: 01/26/2018 09:37 AM Electronically Signed By:Ramya Olivares LCSW [facility] CM Progress Note CM Note CM Note Notes: PT recommending SNF Rehab. Spoke to patient and gave him a list of SNF's and Private Duty Care. His friend, Parminder to go look at facilities and let us know where to send referrals. Patient interested in going to [place] to live after Rehab. Date Signed: 01/27/2018 02:51 PM Electronically Signed By:Ramya Olivares LCSW [facility] CM Progress Note CM Note CM Note Notes: Spoke w/RN, pt wishes referral to SNF to go to [facility] in [place]. DC not likely until Friday. DC Plan: SNF Date Signed: 01/29/2018 03:47 PM Electronically Signed By:Deann Monterroso RN [facility] CM Progress Note CM Note CM Note Notes: CM spoke with floor RN, patient continues on antibiotic treatment, bronchoscopy results are pending. Discharge date TBD. CM to follow. Date Signed: 02/01/2018 01:11 PM Electronically Signed By:Italia Jeffries [facility] Progress Note CM Note CM Note Notes: Order for Palliative Care placed - touch based with Jairo (SAMEER), no consult time scheduled as of yet. Continue to anticipate d/c to [facility] when medically stable. CM will follow. Plan: [facility] with possible outpatient PC pending consult. Date Signed: 02/02/2018 10:48 AM Electronically Signed By:Lala Quesada RN [facility] CM Progress Note CM Note CM Note Notes: Patient referral made to [facility] Palliative Care per Jairo Belle. CM will follow. Date Signed: 02/02/2018 01:45 PM Electronically Signed By:Isi Salcedo LCSW [facility] CM Progress Note CM Note CM Note Notes: Katerine from [facility] stopped by and met w/ pt. Anticipate d/c for either tomorr or Friday. CM spoke to pts sister Herminia. She plans on flying in tomorrow w/ her . CM provided her updates. CM to follow. Plan: [facility] Date Signed: 02/04/2018 02:07 PM Electronically Signed By:SENG Gama Case Management Discharge Plan Note Case Management Discharge Discharge Order Complete? Answers: Yes Patient to Obtain Answers: Other Notes: [facility] Medications Transportation Arranged Answers: Other Notes: W/C with O2 arranged by María at [facility] Transport will Pick (Date 02/06/2018 02:30 PM & Time) Faxed Final Orders Answers: Yes Notes: to [facility] Agency/Facility Transfer Answers: Yes Notes: to [facility] Report Printed & Faxed to Receiving Agency Discharge Comments Notes: 02/06/2018 Case Management Note Faxed final orders to [facility]. Called to confirm. Spoke with María who arranged w/c with O2 transport for 1430. RN to call report. Faxed d/c orders to [facility]. Case management d/c poc: [facility] SNF rehab with [facility] outpatient Pall[facility] Date Signed: 02/06/2018 02:25 PM Electronically Signed By:Florida Edwards RN Intervention Information Intervention Type:*IM-Signed Date of Service:02/06/2018 02:16 PM Patient Type:Inpatient Staff Member:Samantha Fernandez Hours: Discipline: Severity: Comment:
== END 2018-02-06 14:41 | DRG 871 ==
LOC: EDUNIT# → F2N 07:30 → F3E 01-28 16:59
PROVIDERS: ADMIT Student in an Organized Health Care Education/Training Program; ATTEND Student in an Organized Health Care Education/Training Program
PROC: 0BDC8ZX Extraction of Right Upper Lung Lobe, Via Natural or Artificial Opening Endoscopic, Diagnostic (ICD-10-PCS; principal; 2018-01-28 14:00)
PROC: 0B9C8ZX Drainage of Right Upper Lung Lobe, Via Natural or Artificial Opening Endoscopic, Diagnostic (ICD-10-PCS; principal; 2018-01-28 14:00)
PROC: 0BC48ZZ Extirpation of Matter from Right Upper Lobe Bronchus, Via Natural or Artificial Opening Endoscopic (ICD-10-PCS; principal; 2018-01-28 14:00)
DX: A41.9 Sepsis, unspecified organism (principal); J18.9 Pneumonia, unspecified organism; J96.01 Acute respiratory failure with hypoxia; B37.0 Candidal stomatitis; E86.9 Volume depletion, unspecified; J44.9 Chronic obstructive pulmonary disease, unspecified; N90.89 Other specified noninflammatory disorders of vulva and perineum; E87.6 Hypokalemia; I10 Essential (primary) hypertension; G89.29 Other chronic pain; L89.220 Pressure ulcer of left hip, unstageable
CPT/HCPCS: 84484-PO; 96365; 97110-GP; 97116-GP; 97161-GP; 97166-GO; 97530-GO; 97530-GP; 97535-GO; G8978-GP-CJ; G8978-GP-CK; G8979-GP-CI; G8987-GO-CK; G8988-GO-CI; G8988-GO-CJ; J0171; J1650; J1940; J1956; J2250; J2543; J3010; J3370; J7512; J7608; J7613

== ENCOUNTER 2018-03-02 09:39 | Inpatient (IN) | payer OTHER ==
--- NOTE | 2018-03-02 10:06 | EDPHY ---
H & P Stated Complaint: cough and low sats Time Seen by Provider: 03/02/18 10:01 HPI/ROS: HPI: This is an 82-year-old male who presents with Chief Complaint: Cough and low oxygen saturation rate Location: Chest Quality: Dyspnea, cough Duration: 3-4 days Signs and Symptoms: + shortness of breath at rest, + shortness of breath on exertion, + productive cough, no chest pain, no palpitations, no lower extremity edema, no wheezing, no orthopnea, no paroxysmal nocturnal dyspnea, no fever, no injury/trauma, no hemoptysis, no carpal pedal spasms Timing: Worsening Severity: Moderate Context: Patient presents with 3-4 day history of worsening dyspnea and productive cough. He is requiring more oxygen at baseline which is around 5 L nasal cannula. Upon any exertion his O2 sats would drop below 85% on 5 L nasal cannula. Has a history of right upper lobe pneumonia and hospital admission on 01/26/2018 discharge on home oxygen. Patient was discharged to a rehab facility and diagnosed with C diff colitis shortly thereafter. He was placed on vancomycin with almost immediate improvement in diarrhea per patient. He had a laboratory studies, stool study and chest x-ray performed today that showed improvement in the right upper lobe pneumonia but new mild T9 compression fracture that is new over the last 4 weeks. Patient reports that the albuterol nebulizer makes him have "coughing episodes." Has a history of COPD. Denies recent falls or injuries. Modifying Factors: See above Comment: ROS: A comprehensive 10 system review of systems is otherwise negative aside from elements mentioned in the history of present illness. MEDICAL/SURGICAL/SOCIAL HISTORY: Medical/Surgical history: appendectomy, hyperlipidemia, HTN, ulcerative proctitis, stage 1 kidney disease, spinal fusion, Raynaud, C diff colitis Social history: Former smoker. CONSTITUTIONAL: Chronically ill-appearing, talkative, elderly white male, son at bedside, awake and alert, no obvious distress HEENT: Atraumatic and normocephalic, PERRL, EOMI. Nares patent; no rhinorrhea; no nasal mucosal edema. Tympanic membranes clear. Oropharynx clear, no exudate and moist pink mucosa. Airway patent. No lymphadenopathy. No meningismus. Cardiovascular: Normal S1/S2, regular rate, irregular rhythm, without murmur rub or gallop. PULMONARY/CHEST: Symmetrical and nontender. Coughs with inhalation. Right for lobe, right middle lobe, right lower lobe rhonchi noted. Good air movement. No accessory muscle usage. ABDOMEN: Soft, nondistended, nontender, no rebound, no guarding, no peritoneal signs, no masses or organomegaly. No CVAT. EXTREMITIES: 2/2 pulses, strength 5/5, no deformities, no clubbing, no cyanosis or edema. NEUROLOGICAL: no focal neuro deficits. GCS 15. SKIN: Warm and dry, pallor, no erythema. no rash. Fair capillary refill. Source: Patient, Family, Old records Exam Limitations: No limitations - Personal History Current Tetanus/Diphtheria Vaccine: Yes Current Tetanus Diphtheria and Acellular Pertussis (TDAP): Yes - Medical/Surgical History Hx Asthma: No Hx Chronic Respiratory Disease: No Hx Diabetes: No Hx Cardiac Disease: No Hx Renal Disease: No Hx Cirrhosis: No Hx Alcoholism: No Hx HIV/AIDS: No Hx Splenectomy or Spleen Trauma: No Other PMH: appendectomy, hyperlipidemia, HTN, ulcerative proctitis, stage 1 kidney disease, spinal fusion, reynauds - Social History Smoking Status: Former smoker Constitutional: Initial Vital Signs Temperature (C) 36.6 C 03/02/18 09:54 Heart Rate 89 03/02/18 09:54 Respiratory Rate 18 03/02/18 09:54 Blood Pressure 135/69 H 03/02/18 09:54 O2 Delivery Mode Nasal Cannula O2 (L/minute) 6 Allergies/Adverse Reactions: Sulfa (Sulfonamide Antibiotics) Allergy (Mild, Verified 01/26/18 06:03) dizzy Home Medications: Medication Instructions Recorded Aspirin [Aspirin 81mg (*)] 81 mg PO HS 01/19/18 Balsalazide Disodium [Colazal (*)] 2,250 mg PO TID 01/19/18 Fluticasone/Salmeter 100/50Mcg 1 puffs IH BID 01/19/18 [Advair 100/50 (*)] Herbals/Supplements -Info Only 1 ea PO DAILY 01/19/18 Multivitamins [Multivitamin (*)] 1 each PO DAILY 01/19/18 Ranitidine HCl 75 mg PO DAILY 01/19/18 Tamsulosin HCl [Flomax 0.4 MG (*)] 0.4 mg PO HS 01/19/18 Lisinopril [Zestril 10 mg (*)] 15 mg PO DAILY #45 tab 02/06/18 Albuterol [Proventil Inhaler HFA 1 - 2 puffs IH Q4H PRN 03/02/18 (*)] Tiotropium Inhaler [Spiriva 1 inh IH DAILY 03/02/18 Inhaler] Vancomycin [Vancocin Oral Liquid] 125 mg PO TID 03/02/18 guaiFENesin [Mucinex 600 MG (*)] 600 mg PO BID PRN 03/02/18 Medical Decision Making - Diagnostics Imaging Results: Imaging Impressions Chest/Thorax CTA 03/02/18 10:07 Impression: 1. No evidence of thrombopulmonary embolic disease. 2. New small to moderate right pneumothorax. 3. Small right pleural effusion which may be loculated. 4. Improving right upper lobe pneumonia. 5. New right lower lobe pneumonia versus atelectasis. 6. New interstitial edema in the lung bases. 7. Mild T8 compression fracture. Findings discussed with Emergency Department physician, Cheyenne Abbott on 2017, 11:48. ED Course/Re-evaluation: Vital signs reviewed and show O2 sats 85% on 5 L nasal cannula. Laboratory studies and IV access obtained. EKG and CTA chest to evaluate for pulmonary embolism ordered. D-dimer not ordered due to high risk. Chest x-ray reviewed via PACs and shows improving right upper lobe pneumonia new mild T9 compression fracture. Patient denies significant pain in the thoracic back area. Differential diagnosis includes but is not limited to pulmonary embolism, congestive heart failure, hypoxia related to pneumonia. Given DuoNeb upon arrival. 1035: Reviewed EKG with attending which appears to shows sinus tachycardia beats per minute, PACs Chart review shows that echocardiogram performed on 02/01/2018 shows an EF of 55 % with RV systolic pressure 52 mmHg 1047: Labs reviewed. WBC 13 K with left shift, creatinine 0.9, troponin 0.02, no electrolyte imbalance, mild normocytic anemia, proBNP is 2 880. 02/01 it was 07746 and 01/26 it was 668. 1138: Called by Radiology who advised that CTA chest shows right-sided pneumothorax that small to moderate in size, COPD changes, no pulmonary embolism , there is a new right base focal area concerning interstitial edema versus viral pneumonitis 1140: Discussed case with attending and ED decision to consult surgery. Spoke with Dr. Mcnally kindly agrees to consult on patient. He placed a chest tube in the emergency room. Post chest tube chest x-ray ordered per request. ED decision to consult hospitalist. Spoke with Camille and . Dr. Estrella will kindly admit patient to [facility] for further care. This patient was seen under the supervision of my secondary supervising physician. I evaluated care for this patient with my attending. Discussed this patient with Dr. Hooker who did see the patient. Differential Diagnosis: Shortness of breath including but not limited to pulmonary infectious process, COPD, asthma, pulmonary embolus and congestive heart failure. - Data Points Laboratory Results: Laboratory Results 03/02/18 10:17 03/02/18 10:17 03/02/18 03/02/18 03/02/18 10:22 10:17 10:17 WBC 13.72 10^3/uL H 10^3/uL (3.80-9.50) RBC 4.12 10^6/uL L 10^6/uL (4.40-6.38) Hgb 12.5 g/dL L g/dL (13.7-17.5) Hct 38.1 % L % (40.0-51.0) MCV 92.5 fL fL (81.5-99.8) MCH 30.3 pg pg (27.9-34.1) MCHC 32.8 g/dL g/dL (32.4-36.7) RDW 13.9 % % (11.5-15.2) Plt Count 367 10^3/uL 10^3/uL (150-400) MPV 9.4 fL fL (8.7-11.7) Neut % (Auto) 86.1 % H % (39.3-74.2) Lymph % (Auto) 5.0 % L % (15.0-45.0) [place] % (Auto) 7.1 % % (4.5-13.0) Eos % (Auto) 0.7 % % (0.6-7.6) Baso % (Auto) 0.4 % % (0.3-1.7) Nucleat RBC Rel Count 0.0 % % (0.0-0.2) Absolute Neuts (auto) 11.81 10^3/uL H 10^3/uL (1.70-6.50) Absolute Lymphs (auto) 0.69 10^3/uL L 10^3/uL (1.00-3.00) Absolute Monos (auto) 0.98 10^3/uL H 10^3/uL (0.30-0.80) Absolute Eos (auto) 0.09 10^3/uL 10^3/uL (0.03-0.40) Absolute Basos (auto) 0.05 10^3/uL 10^3/uL (0.02-0.10) Absolute Nucleated RBC 0.00 10^3/uL 10^3/uL (0-0.01) Immature Gran % 0.7 % % (0.0-1.1) Immature Gran # 0.10 10^3/uL 10^3/uL (0.00-0.10) Sodium 135 mEq/L mEq/L (135-145) Potassium 4.0 mEq/L mEq/L (3.3-5.0) Chloride 97 mEq/L mEq/L (97-110) Carbon Dioxide 29 mEq/l mEq/l (22-31) Anion Gap 9 mEq/L mEq/L (6-14) BUN 20 mg/dL mg/dL (7-23) Creatinine 0.9 mg/dL mg/dL (0.7-1.3) Estimated GFR > 60 Glucose 106 mg/dL H mg/dL (70-100) Calcium 8.9 mg/dL mg/dL (8.5-10.4) POC Troponin I 0.02 ng/mL ng/mL (0.00-0.08) NT-Pro-B Natriuret Pep 2880 pg/mL H pg/mL (0-450) Medications Given: Acetaminophen (Tylenol) 650 mg PO Q4HRS PRN PRN Reason: Pain, Mild/Fever, Can Take PO Stop: 08/29/18 12:06 Last Admin: 03/02/18 14:41 Dose: 650 mg Discontinued Medications Albuterol/Ipratropium (Duoneb) 3 ml IH EDNOW ONE Stop: 03/02/18 10:08 Last Admin: 03/02/18 10:15 Dose: 3 ml Fentanyl (Sublimaze) 100 mcg IVP ONCE ONE Stop: 11/05/18 12:20 Last Admin: 03/02/18 12:30 Dose: 100 mcg Point of Care Test Results: Chemistry 03/02/18 10:22 POC Troponin I 0.02 ng/mL ng/mL (0.00-0.08) Departure - Departure Disposition: [facility] Inpatient Acute Clinical Impression: Hypoxia, Pneumothorax, right Non-traumatic compression fracture of T9 thoracic vertebra Qualifiers: Encounter type: subsequent encounter Fracture healing: with routine healing Qualified Code(s): M48.54XD - Collapsed vertebra, not elsewhere classified, thoracic region, subsequent encounter for fracture with routine healing Emphysema lung Qualifiers: Emphysema type: unspecified Qualified Code(s): J43.9 - Emphysema, unspecified Interstitial edema Qualifiers: Edema type: unspecified Qualified Code(s): R60.9 - Edema, unspecified Condition: Fair
[2018-03-02] MEDS ORDERED: IPRATROPIUM/ALBUTEROL 3 ML DEYVIAL IH ONE (10:07)
[2018-03-02 10:24] LABS: PLATELET COUNT 367 10^3/uL (150-400)
[2018-03-02] MEDS ORDERED: IOPAMIDOL (ISOVUE 370) 100 ML BTL IV ONE (10:56)
[2018-03-02] MEDS ORDERED: ONDANSETRON 4 MG/2 ML VIAL IVP PRN (12:07)
[2018-03-02] MEDS ORDERED: ONDANSETRON DISINTEGRATING 4 MG TAB PO PRN (12:07)
[2018-03-02] MEDS ORDERED: fentaNYL 100 MCG/2 ML INJ ONE (12:15)
[2018-03-02] MEDS ORDERED: fentaNYL 100 MCG/2 ML INJ IVP ONE (12:19)
--- NOTE | 2018-03-02 14:28 | GOP ---
DATE OF OPERATION: 03/02/2018 SURGEON: Los Mcnally MD OTHER SPORTS COACH OR INSTRUCTOR: None. ANESTHESIA: 1% lidocaine with epinephrine. PREOPERATIVE DIAGNOSIS: Right-sided pneumothorax. POSTOPERATIVE DIAGNOSIS: Right-sided pneumothorax. PROCEDURE PERFORMED: Right chest tube thoracostomy placement. FINDINGS: Successful placement, large mckeon of air, tidaling well with positive expiratory air leak. SPECIMENS: None. ESTIMATED BLOOD LOSS: 5 cc. DESCRIPTION OF PROCEDURE: The patient was greeted in the [facility]. After discussing the risks, be nefits, and alternatives to the procedure, the consent was signed. A World Health Organization time- out was performed. The patient's right chest was then prepped and draped in typical sterile fashion. I anesthetized the approximate 5th intercostal space. After successful anesthetization, I made an incision and carried this superiorly. I entered the ches t cavity bluntly and had a large mckeon of air. Once in the chest cavity, I placed the tube and direct ed it apically. The tube was tidaling well. It was attached to the Pleur-evac. It did have an expi ratory air leak. It was sewn in place with a silk suture. A sterile dressing was placed. The patie nt tolerated the procedure well. DRAINS: 28-Polish straight chest tube to the right chest. /[id number]/MODL
[2018-03-02] MEDS: ACETAMINOPHEN 325 MG TAB PO PRN (14:41)
--- NOTE | 2018-03-02 14:49 | GCON ---
DATE OF CONSULTATION: 03/02/2018 CHIEF COMPLAINT: Shortness of breath and chest pain. HISTORY OF PRESENT ILLNESS: This is an 82-year-old male who presents to the emergency department com plaining of a 2 to 3 day history of worsening cough and shortness of breath. Briefly, the patient wa s admitted for right upper lobe pneumonia in early January. Prior to that was not on home oxygen, rick bsequently was sent home on 2 to 3 L of oxygen after going to a rehab facility. During the hospitali zation, actually developed C difficile colitis as well. At any rate, he has been at home for a while , does have a home health nurse. States that for the last 2 to 3 days, he has had worsening shortnes s of breath and problems breathing, which prompted his presentation today. In consultation with the patient, he, other than being short of breath, states that he feels well and actually feels a little bit better. He denies having any fevers or chills. Denies having any new c hest wall trauma, but states that it has been hard for him to catch his breath. PAST MEDICAL HISTORY: Hyperlipidemia, hypertension, ulcerative proctitis, stage 1 kidney disease, Ra ynaud, and C difficile colitis. PAST SURGICAL HISTORY: Appendectomy, spinal fusion. SOCIAL HISTORY: Former smoker. Denies illicit drug use. Is a [place] . Lives alone. FAMILY HISTORY: Noncontributory. REVIEW OF SYSTEMS: A full 10-point review was performed. PHYSICAL EXAM: VITAL SIGNS: Heart rate is 112, blood pressure is 113/75. He is 90% on 6 L nasal ca nnula, and his temperature is 37. CONSTITUTIONAL: He is in a mild amount of distress and appears co mfortable. EYES: His pupils are equal, round, and reactive to light and accommodation. He has anic teric sclerae. His extraocular movements are intact. EARS, NOSE, MOUTH, THROAT: He has moist mucou s membranes. His hearing is normal. His ears appear normal CARDIOVASCULAR: He is tachycardic. No appreciable murmurs. RESPIRATORY: He has intercostal retractions on the right side with accessory m uscles being used. His lung sounds are fairly distant throughout the entire right lung field. GI: His abdomen is soft, nondistended, nontender with normoactive bowel sounds. SKIN: Warm. Normal col or. No rashes or abrasions. MUSCULOSKELETAL: He has full strength. No tenderness with normal join t range of motion. NEUROLOGIC: He is alert and oriented x3. His cranial nerves 2-12 are intact. Sajan asher has no weakness no numbness psych he is interacting appropriately. He is not anxious or encephalop athic. LYMPH/HEME/IMMUNOLOGIC: He has no cervical groin or supraclavicular lymphadenopathy apprecia master. LABORATORY: Leukocytosis to 13,000 with a left shift, H and H are 12 and 38, platelets are 367. Nicolasa kye shows an elevated glucose at 106. BNP is elevated at 2880. Troponin is normal at 0.02. Crea tinine is 0.9. IMAGING: Includes a CT-A of the chest, the images of which were personally reviewed. This shows a m oderate sided right-sided pneumothorax with a small right-sided pleural effusion, improving right-shwetha ed pneumonia, and a mild T8 compression fracture, age indeterminate. ASSESSMENT/PLAN: 82-year-old male with underlying lung disease and improving pneumonia with a new ri ght-sided pneumothorax. After evaluating the patient, noting his symptoms, his difficulty breathing and the requirement for 6 L of oxygen to just be at 90% saturations, I do feel that tube thoracostomy placement is warranted. I discussed this with the patient. I told him that likely his underlying lung disease requires him to have full recruitment and although this pneumothorax is not large, it is likely contributing to hi s shortness of breath and symptoms. He is in agreement with this. After discussing the risks, benef its, and alternatives, he wishes to proceed. We will plan to place a chest tube on the right side. I discussed my plan and findings with the hospitalist and the emergency PA taking care of the patient . /[id number]/MODL
[2018-03-02] MEDS ORDERED: traMADol 50 MG TAB PO PRN (15:08)
[2018-03-02] MEDS ORDERED: ALBUTEROL 60 PUFFS/8 GM MDI IH PRN (15:14)
--- NOTE | 2018-03-02 15:15 | CPEKG ---
Test Reason : OPEN Blood Pressure : / mmHG Vent. Rate : 108 BPM Atrial Rate : 189 BPM P-R Int : 152 ms QRS Dur : 082 ms QT Int : 323 ms P-R-T Axes : 053 -29 026 degrees QTc Int : 433 ms Normal sinus rhythm ACs inferior infarct, Confirmed by Tata Hooker ([id number]) on 03/02/2018 3:15:27 PM Referred By: Confirmed By:Tata Hooker
[2018-03-02] MEDS: KETOROLAC 15 MG/1 ML SDV IVP PRN (15:54)
[2018-03-02] MEDS ORDERED: VANCOMYCIN 125 MG/2.5 ML UDL PO SCH (16:00)
--- NOTE | 2018-03-02 16:09 | GHP ---
DATE OF ADMISSION: 03/02/2018 CHIEF COMPLAINT: Right-sided pneumothorax. HISTORY OF PRESENT ILLNESS: An 82-year-old male with COPD, chronic hypoxemic respiratory failure, BPH who was discharged from [facility] 01/21 for PNA. He was readmitted 01/26 to ICU with sepsis and completed a course of Zosyn for PNA. He was discharged to [facility] just a few days ago and has experienced severe cough and dyspnea with clear sputum. No F/C/S. This morning, his O2 sats dropped to the 70s. Was diagnosed with C difficile at [facility] and started on p.o. vancomycin. Now having formed stools and no abdominal pain. Denies any trauma or recent falls. In ER, CTA showed moderate right pneumothorax and small right pleural effusion. Right upper lobe pneumonia was improved. REVIEW OF SYSTEMS: I completed a 10-point review of systems, negative, except as noted in HPI. PAST MEDICAL HISTORY: 1. COPD. 2. Chronic hypoxemic respiratory failure. 3. Hypertension. 4. BPH. 5. Urinary incontinence. 6. Ulcerative colitis. 7. Recent hospitalization in December 2017, for pneumonia and readmission 04/2017, with sepsis and pneumonia. PAST SURGICAL HISTORY: Back surgery. SOCIAL HISTORY: Just discharged from [facility]. He has caretakers throughout the day that assist him with his ADLs. He is a prior smoker. Occasional alcohol. No illicits. FAMILY HISTORY: Noncontributory. ALLERGIES: Sulfa. HOME MEDICATIONS: Vancomycin 125 mg t.i.d., aspirin 81 mg daily, albuterol, Spiriva, tamsulosin 0.5 mg q.h.s. ranitidine, multivitamin, lisinopril 15 daily , herbal supplement, Advair, Colazal, and Mucinex. PHYSICAL EXAMINATION: VITAL SIGNS: Temperature 36.1, blood pressure 128/83, heart rate 104, respirations 23, 93% on 5 L. GENERAL: Well appearing in no acute distress. HEENT: PERRLA. Moist mucous membranes. CV: Regular rate and rhythm. LUNGS: Diminished at the bases. He has a right-sided chest tube in place. ABDOMEN: Soft, nontender, nondistended. Positive bowel sounds. : Condom cath [place]. MUSCULOSKELETAL: Moving all 4 extremities. NEUROLOGIC: 2 through 12 intact. PSYCH: Alert and orient x3. LABORATORY/IMAGING: WBC 13, hemoglobin 12, hematocrit 38, platelets 367. Sodium 135, potassium 4, chloride 97, carbon dioxide 29, creatinine 0.9, glucose 106, calcium 8.9. Chest x-ray personally reviewed by me. Chest tube in place. CTA: No PE. Rights sided pneumothorax, right pleural effusion. Severe emphysema with bullae (CTA personally reviewed). ASSESSMENT/PLAN: 1. Acute pneumothorax: spontaneous with cough and severe COPD. Dr. Mcnally placed a chest tube. Pain control with Toradol, tramadol as needed. 2. Acute on chronic hypoxemic respiratory failure: evidenced by O2 sats of 70s at home, respirations 28-30. Afebrile, WBC down from last discharge. CTA with improved RUL PNA. Does have effusion; would tap if fevers. Check a respiratory PCR. 3. BPH: Flomax. 4. Clostridium difficile: first episode. Unclear why on tapered dose. Will change to QID for total 14 days. 5 Hypertension: home medications. 6. Ulcerative colitis: home medications. 7. Chronic obstructive pulmonary disease: PRN nebs 8. Cough: Mucinex, Robitussin. 9. Leukocytosis: 13, but down from last admission. May be stress reaction with PTX. Denies fever. Resp PCR pending 10. Diet: Regular. 11. Deep venous thrombosis prophylaxis: Sequential compression devices. DISPOSITION: Patient warrants inpatient admission given acute pneumothorax warranting chest tube, serial imaging, and pain control. /[id number]/MODL MTDD
[2018-03-02] MEDS: IPRATROPIUM/ALBUTEROL 3 ML DEYVIAL IH PRN ×2 (16:12→19:51)
[2018-03-02] MEDS: BALSALAZIDE DISODIUM 750 MG CAP PO SCH ×3 (16:31→20:52)
[2018-03-02] MEDS: traMADol 50 MG TAB PO PRN (17:09)
[2018-03-02] MEDS: guaiFENesin 600 MG TAB.ER PO PRN (17:41)
[2018-03-02] MEDS: FLUTICASONE/SALMETER 100/50MCG DISKUS IH SCH (19:51)
[2018-03-02] MEDS: TAMSULOSIN HCL 0.4 MG CAP PO SCH (20:51)
[2018-03-02] MEDS: ASPIRIN 81 MG CHEWABLE TAB PO SCH (20:51)
[2018-03-02] MEDS: VANCOMYCIN 125 MG/2.5 ML UDL PO SCH (20:51)
[2018-03-02] MEDS: VSL#3 1 EACH CAP PO SCH (20:52)
[2018-03-02] MEDS: FAMOTIDINE 20 MG TAB PO SCH (20:53)
[2018-03-02] MEDS: MELATONIN 3 MG TAB PO SCH (20:59)
[2018-03-03] MEDS: traMADol 50 MG TAB PO PRN ×3 (00:54→15:41)
[2018-03-03] MEDS: KETOROLAC 15 MG/1 ML SDV IVP PRN ×3 (00:54→15:42)
[2018-03-03] MEDS: VANCOMYCIN 125 MG/2.5 ML UDL PO SCH (06:38)
[2018-03-03] MEDS: FAMOTIDINE 20 MG TAB PO SCH (08:12)
[2018-03-03] MEDS: MULTIVITAMINS 1 EACH TAB PO SCH (08:12)
[2018-03-03] MEDS: BALSALAZIDE DISODIUM 750 MG CAP PO SCH ×3 (08:12→20:50)
[2018-03-03] MEDS: VSL#3 1 EACH CAP PO SCH ×3 (08:12→20:53)
[2018-03-03] MEDS: LISINOPRIL 10 MG TAB PO SCH (08:12)
[2018-03-03] MEDS: Tiotropium Bromide [Spiriva Respimat] IH SCH (08:14)
[2018-03-03] MEDS: FLUTICASONE/SALMETER 100/50MCG DISKUS IH SCH ×2 (08:14→20:15)
[2018-03-03] MEDS: IPRATROPIUM/ALBUTEROL 3 ML DEYVIAL IH PRN (08:21)
[2018-03-03] MEDS ORDERED: TIOTROPIUM INHALER 18 MCG/DOSE 5 DOSE/MDI IH SCH ×2 (09:00)
[2018-03-03] MEDS ORDERED: ENOXAPARIN 40 MG/0.4 ML SYR SC SCH (09:00)
[2018-03-03] MEDS ORDERED: Herbals/Supplements -Info Only PO SCH (09:00)
--- NOTE | 2018-03-03 09:09 | HOSPPROG ---
Hospitalist Progress Note Assessment/Plan: #Acute on chronic hypoxemic resp failure: multifactorial with PTX, COPD exacerbation -recently hospitalized 2x for PNA. Has new right effusion here. Mildly elevated procalcitonin, but denies infectious sxs, negative resp PCR. No abx warranted -repeat CXR pending Consulted Dr. Gilmore #Spontaneous PTX: cont wall suction #C diff: spoke with staff [facility]. Diagnosed 02/13; was on high-dose 250mg QID. Has completed > 2weeks. Will stop abx, having formed stools #Tachycardia: EKG (personally reviewed) sinus tach with PACs #Severe COPD with exacerbation: extensive disease on CT. Azithro, steroids, nebs #BPH: Flomax #HTN: Lisinopril #UC: home meds #Deconditioning: PT/OT #Disp: inpatient admission for chest tube, neb Subjective: Increased WOB, anxious Objective: Vital Signs Temp Pulse Resp BP Pulse Ox 37.0 C 104 H 30 H 120/68 94 03/03/18 08:00 03/03/18 08:17 03/03/18 08:17 03/03/18 08:00 03/03/18 08:17 Microbiology 03/02/18 15:40 Respiratory Panel (PCR) - Final Nasal, Sinus - Swab No Organism Detected Laboratory Results 03/03/18 04:38 03/02/18 03/03/18 03/04/18 05:59 05:59 05:59 Intake Total 600 Output Total 1180 Balance -580 - Time Spent With Patient Time Spent with Patient: greater than 35 minutes Time Spent with Patient: Greater than 35 minutes spent on this patients care, greater than 50% of time spent counseling, educating, and coordinating care regarding the above mentioned plan. - Physical Exam Constitutional: uncomfortable Ears, Nose, Mouth, Throat: moist mucous membranes Respiratory: reduced air movement, expiratory wheeze, rhonchi, other (right chest tube in place) Gastrointestinal: normoactive bowel sounds, soft, non-tender abdomen ICD10 Worksheet Patient Problems: Problems Problem Status Onset Emphysema lung Acute Hypoxia Acute Interstitial edema Acute Non-traumatic compression fracture of T9 thoracic vertebra Acute Pneumothorax, right Acute Acute respiratory failure with hypoxia Acute Chronic Disease Mgmt/Transitional Care Acute Pneumonia Acute Sepsis Acute
--- NOTE | 2018-03-03 09:10 | PDMN ---
Medical Necessity Medical necessity: MCG M500 Pneumothorax: 82 yo w/ acute pneumothorax, spontaneous w/ cough and severe COPD, emergent chest tube placed. Sats dropped overnight to 70s w/ 6L O2, switch to mask 15L, resp 28-30, small pleural effusion noted, tachy 100s-120s, + for Cdiff, Pt warrants IP admit given acute pneumothorax warranting chest tube, serial imaging and pain control. Hx COPD, chronic hypoxemic resp fx, HTN, BPH, urinary incontinence, ulcerative colitis, recent hospitalization X2 for pneumonia and sepsis.
[2018-03-03] MEDS: guaiFENesin 600 MG TAB.ER PO PRN ×2 (09:15→20:46)
[2018-03-03] MEDS ORDERED: AZITHROMYCIN IV 250 MG in NS 250 ML IV SCH (10:00)
[2018-03-03] MEDS: AZITHROMYCIN IV 500 MG in NS 250 ML IV SCH (10:13)
[2018-03-03] MEDS: methylPREDNISolone SOD SUCC 125 MG/2 ML VIAL IVP SCH ×3 (10:13→23:56)
[2018-03-03] MEDS: ENOXAPARIN 40 MG/0.4 ML SYR SC SCH (12:01)
--- NOTE | 2018-03-03 12:25 | ASMTCMCOM ---
CM Note CM Note Notes: 82yo male had been admitted to [facility] on 01/13 for PNA and 01/26 for Sepsis and PNA. Present admit for Spontaneous pneumothorax. He has a Hx of COPD, Chronic resp failure, Urinary retention, Ulcerative colitis, HTN, BPH. Was recently at [facility]. We talked about possibly trying out [facility]. He is in conversation with Leonor for LTC or Assist Jocelyn depending on his needs after Rehab. Patient is currently on 15 lits of O2. Talked about a Palliative consult during ICU Rounds. Therapies to eval. CM to follow. Date Signed: 03/03/2018 12:24 PM Electronically Signed By:Ramya Olivares LCSW
--- NOTE | 2018-03-03 13:29 | SOAPPROG ---
SOAP Progress Note Assessment/Plan: Assessment: 82yo M s/p CT placement for R ptx 2/2 pna - more SOB this AM, repeat CXR shows no worsening ptx/. Still has expiratory air leak, keep to suction - will follow up later today, dont have clear reason for worsening SOB Plan: 03/03/18 13:28 Subjective: more SOB this AM Objective: Vital Signs Temp Pulse Resp BP Pulse Ox 36.8 C 91 23 H 122/81 H 96 03/03/18 12:00 03/03/18 12:00 03/03/18 12:00 03/03/18 12:00 03/03/18 12:00 Microbiology 03/02/18 15:40 Respiratory Panel (PCR) - Final Nasal, Sinus - Swab No Organism Detected Laboratory Results 03/03/18 04:38 03/02/18 03/03/18 03/04/18 05:59 05:59 05:59 Intake Total 600 Output Total 1180 Balance -580 ICD10 Worksheet Patient Problems: Problems Problem Status Onset Emphysema lung Acute Hypoxia Acute Interstitial edema Acute Non-traumatic compression fracture of T9 thoracic vertebra Acute Pneumothorax, right Acute Acute respiratory failure with hypoxia Acute Chronic Disease Mgmt/Transitional Care Acute Pneumonia Acute Sepsis Acute
--- NOTE | 2018-03-03 14:27 | GCON ---
PULMONARY CRITICAL CARE CONSULT DATE OF CONSULTATION: 03/03/2018 HISTORY OF PRESENT ILLNESS: This patient is an 82-year-old male with a history of COPD and multiple other issues who was admitted yesterday with a spontaneous pneumothorax. He was initially admitted t [facility] on 01/19, through 01/21, with community-acquired pneumonia. He was treated with Levaquin and o xygen at that time; however, he returned to the hospital on 01/26/2018, and was here through 02/07/20, with ongoing pneumonia issues as he never really fully recovered. At that time, he was somewhat noncompliant with his oxygen, but he was treated with Zosyn, steroids, and underwent bronchoscopy on 01/28/2018, which was largely nondiagnostic. In any case, he was transferred to a [facility] on 02/[facility]. While he was there, however, he developed C difficile colitis and was treated with oral vancomycin, but on 03/02, he had increasing cough and shortness of breath and came to the emerge ncy department. A chest x-ray was actually better than his previous films in terms of pneumonia, but a CT angiogram was performed looking for pulmonary embolism, which did show a somewhat loculated pne umothorax on the right side. A chest tube was placed by Surgery without difficulty and he initially got better, but later this morning was complaining of increasing shortness of breath. A repeat chest x-ray showed the pneumothorax to be largely resolved and his chest tube appeared to be functioning a dequately. He complained, however, of feeling difficulty getting a deep breath in and denied any cou gh or hemoptysis. REVIEW OF SYSTEMS: Otherwise negative. PAST MEDICAL HISTORY: Includes COPD, degenerative joint disease, benign prostatic hypertrophy, carpa l tunnel syndrome, erectile dysfunction, pneumonia as described above, hyperlipidemia, ventral hernia , hypertension, irritable bowel syndrome, possible ulcerative colitis, stage III chronic kidney disea se, paroxysmal atrial fibrillation, peripheral neuropathy, pulmonary nodule that was followed in 2013 , essential tremor, hard of hearing, radial fracture, ulnar fracture, retinal detachment in the past, spinal stenosis, and pulmonary hypertension with an estimated PA pressure of 52, and an ejection fra ction of 55%, but grade 1 diastolic dysfunction on a recent echocardiogram. PAST SURGICAL HISTORY: Includes lumbar decompression, appendectomy, and tonsillectomy in the past. SOCIAL HISTORY: He is a former smoker, but quit times several years. He drinks occasional alcohol. FAMILY HISTORY: Includes alcoholism and thyroid disease. CURRENT MEDICATIONS: Include Tylenol, Proventil q.4 hours p.r.n., aspirin, Colazal, Lovenox, Pepcid, Mucinex, Toradol p.r.n., Xopenex, lisinopril, melatonin, multivitamin, Zofran p.r.n., Advair, Flomax , and Ultram. PHYSICAL EXAM: VITAL SIGNS: He has been afebrile since admission. Blood pressure of 120/68, heart rate 106, respirations 34, oxygen saturation was as low as 78% on 6 L nasal cannula up to 94% with th e addition of a Venturi mask. GENERAL: He was awake and alert, oriented x3, was in [id number] respiratory distress. Was able to speak in only 1 or 2 word sentences and was using accessory muscl es for breathing. HEENT: Pupils are equally round and reactive to light. Nonicteric and noninjecte d. Mucous membranes moist without erythema or exudate. No evidence of thrush. NECK: Supple, witho ut adenopathy or jugular vein distention. LUNGS: Breath sounds were diminished but somewhat wheezy bilaterally without rales, and breath sounds were equal. HEART: Regular rate and rhythm without shauna ar murmur, rubs, or gallops. ABDOMEN: Soft, nontender, nondistended without hepatosplenomegaly. EX TREMITIES: No clubbing, cyanosis, or edema. SKIN: Warm and dry without evidence of rash. NEUROLOG IC: Nonfocal, including cranial nerves and deep tendon reflexes. OBJECTIVE DATA: Includes a chest x-ray as described above. White count was 13.7 yesterday, down to 11.13 today, hematocrit 32, platelets of 330. Blood gas shows pH 7.42, pCO2 40, pO2 79, bicarb of 24 , oxygen saturation 96%. Basic metabolic panel was unremarkable. BNP was 2880. Procalcitonin was 0 .23. ASSESSMENT/PLAN: 1. Pneumothorax. A spontaneous pneumothorax in this patient is not surprising. Not mentioned above was the CT angiogram that showed severe apical predominant bullous emphysema, so it would not take m uch to developed a spontaneous pneumothorax. Chest tube is in place. There is no leak at the moment and does not appear to be a problem currently. We may want to pull his chest tube out fairly soon. I would like to confer with Surgery before doing so. 2. Probable chronic obstructive pulmonary disease exacerbation. He has been through a lot over the last month with pneumonia and I think that his airways are likely reacting to this insult. Subsequen tly, I gave him Solu-Medrol today and added a macrolide antibiotic, less about its antibacterial qual ities and more about its anti-inflammatory pieces. I think Xopenex is reasonable given his tachycard ia and this may reduce that somewhat. He is already on a long-acting beta agonist, as well as a long -acting muscarinic agent, which should cover those pieces. 3. Hypoxemia. His blood gas shows no CO2 retention at this time. Certainly, it would be reasonable and may decrease his air hunger to use Vapotherm at least temporarily. 4. Clostridium difficile. I think he has already been treated for this, but he is on contact precau tions. /[id number]/MODL
[2018-03-03] MEDS: LEVALBUTEROL 1.25 MG/3 ML DEYVIAL IH PRN (17:22)
[2018-03-03] MEDS: ASPIRIN 81 MG CHEWABLE TAB PO SCH (20:46)
[2018-03-03] MEDS: TAMSULOSIN HCL 0.4 MG CAP PO SCH (20:46)
[2018-03-03] MEDS: MELATONIN 3 MG TAB PO SCH (20:46)
[2018-03-04] MEDS: methylPREDNISolone SOD SUCC 125 MG/2 ML VIAL IVP SCH ×3 (05:56→18:51)
[2018-03-04] MEDS: KETOROLAC 15 MG/1 ML SDV IVP PRN (07:18)
[2018-03-04] MEDS: FLUTICASONE/SALMETER 100/50MCG DISKUS IH SCH ×2 (08:13→20:40)
[2018-03-04] MEDS: LEVALBUTEROL 1.25 MG/3 ML DEYVIAL IH PRN ×2 (08:13→20:40)
[2018-03-04] MEDS: Tiotropium Bromide [Spiriva Respimat] IH SCH (08:13)
[2018-03-04] MEDS: ENOXAPARIN 40 MG/0.4 ML SYR SC SCH (08:28)
[2018-03-04] MEDS: FAMOTIDINE 20 MG TAB PO SCH (08:28)
[2018-03-04] MEDS: LISINOPRIL 10 MG TAB PO SCH (08:28)
[2018-03-04] MEDS: guaiFENesin 600 MG TAB.ER PO PRN ×2 (08:28→20:10)
[2018-03-04] MEDS: AZITHROMYCIN IV 500 MG in NS 250 ML IV SCH (08:28)
[2018-03-04] MEDS: VSL#3 1 EACH CAP PO SCH ×3 (08:29→20:17)
[2018-03-04] MEDS: traMADol 50 MG TAB PO PRN (08:29)
[2018-03-04] MEDS: MULTIVITAMINS 1 EACH TAB PO SCH (08:29)
[2018-03-04] MEDS: BALSALAZIDE DISODIUM 750 MG CAP PO SCH ×3 (08:30→20:12)
--- NOTE | 2018-03-04 08:55 | SOAPPROG ---
SOAP Progress Note Assessment/Plan: Assessment: 82 y/o M s/p chest tube placement for pneumonia S: No complaints. Wondering about extended course of vanc for C. diff. infection. Has completed 2 week course. Denies loose stools and abdominal cramps. O: Alert Afebrile RRR O2 needs decreasing. 94% on 10L. CT to suction with no air leak. 375cc serous fluid out in last 24 hours. Chest xray minimally improved from yesterday. Abdomen soft, nontender Plan: CT to water seal. 03/04/18 08:51 Objective: Vital Signs Temp Pulse Resp BP Pulse Ox 36.3 C 94 24 H 146/88 H 94 03/04/18 07:21 03/04/18 07:21 03/04/18 07:21 03/04/18 07:21 03/04/18 07:21 Laboratory Results 03/04/18 05:25 03/04/18 05:25 03/03/18 03/04/18 03/05/18 05:59 05:59 05:59 Intake Total 600 1445 Output Total 1180 745 Balance -580 700 ICD10 Worksheet Patient Problems: Problems Problem Status Onset Emphysema lung Acute Hypoxia Acute Interstitial edema Acute Non-traumatic compression fracture of T9 thoracic vertebra Acute Pneumothorax, right Acute Acute respiratory failure with hypoxia Acute Chronic Disease Mgmt/Transitional Care Acute Pneumonia Acute Sepsis Acute
[2018-03-04] MEDS ORDERED: VANCOMYCIN 125 MG/2.5 ML UDL PO SCH (09:30)
--- NOTE | 2018-03-04 15:37 | PDINTPN ---
Bungy Jump Master Progress Note Assessment/Plan: 82 M with COPD and two recent hospital admissions for CAP, admitted with sudden onset CP and SOB. CXR revealed moderate PTX and a chest tube was placed. This helped but he complained the next morning of increasing dyspnea so solumedrol and Zithromax were added resulting in substantial improvement, though his O2 requirement remains high. * Spontaneous PTX- his chest CT shows severe large bullous emphysema, and his likely poor lung tissue was further compromised by his recent PNA, resulting in high risk for PTX. Followed by CT surgery and placed on water seal today since his CXR shows no ongoing PTX, his CT shows respiratory variation without leak. No air travel for at least 2 weeks. * COPD with exacerbation This has improved with the addition of solumedrol and Zithromax to his advair and duoneb. Assuming he continues to improve, we can likely change steroids to prednisone tomorrow and complete a 5-day course of azithromycin. He is followed by Dr. Pimentel (newly) as an outpatient and can see him after discharge for eventual PFTs once the PTX has completely resolved. * hypoxemia- 2/2 both, titrate as tolerated to sat >90%. No evidence of chronic CO2 retention. * tachycardia- he has had periods of tachy-arrythmias of uncertain origin. 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 There are concerns by staff training and development manager about afib- urged staff to get 12-lead if possible. NO direct rx for MAT (other than lungs). * C diff- started treatment at SNF and I believe completed therapy. remains on contact precautions. * Code status- discussed with palliative care at length today as well as patient. He had a MOST form suggesting CPR was OK but no intubation. Today he was less clear about it and his cognitive processing seemed a bit off. He agreed to full code for now until this can be better clarified at a later date. However, no intubation is quite reasonable for what appears to be late stage COPD. I encouraged him to discuss this with his family, particularly his POA sister 03/04/18 15:38 Subjective: stable overnight. Less SOB today Objective: Vital Signs Temp Pulse Resp BP Pulse Ox 36.6 C 96 19 119/67 94 03/04/18 12:00 03/04/18 12:00 03/04/18 12:00 03/04/18 12:00 03/04/18 12:00 Laboratory Results 03/04/18 05:25 03/04/18 05:25 03/03/18 03/04/18 03/05/18 05:59 05:59 05:59 Intake Total 600 1445 905 Output Total 1180 745 Balance -580 700 905 Physical Exam - Physical Exam General Appearance: alert, mild distress, thin EENT: PERRL/EOMI, No scleral icterus (R), No scleral icterus (L) Neck: supple, No lymphadenopathy (R), No lymphadenopathy (L) Respiratory: lungs clear, normal breath sounds, accessory muscle use, No respiratory distress, No decreased breath sounds, No wheezing Cardiac/Chest: regular rate, rhythm, No edema Abdomen: non-tender, soft, No distended Skin: normal color, warm/dry, No cyanosis Lymphatic: no adenopathy Extremities: No pedal edema Neuro/Psych: alert, normal mood/affect, oriented x 3, cognition abnormalities ( very subtle but mostly coherent and well educated discussion about dnr), No abnormal manager state II-XII ICD10 Worksheet Patient Problems: Problems Problem Status Onset Emphysema lung Acute Hypoxia Acute Interstitial edema Acute Non-traumatic compression fracture of T9 thoracic vertebra Acute Pneumothorax, right Acute Acute respiratory failure with hypoxia Acute Chronic Disease Mgmt/Transitional Care Acute Pneumonia Acute Sepsis Acute
[2018-03-04] MEDS: VANCOMYCIN 125 MG/2.5 ML UDL PO SCH ×3 (15:41→20:10)
--- NOTE | 2018-03-04 15:43 | HOSPPROG ---
Hospitalist Progress Note Assessment/Plan: * Acute on chronic respiratory failure - requiring 12L O2 * COPD exacerbation -steroids, nebs, azithromycin * PTX - due to COPD bleb -chest tube in place * Recent PNA -s/p antibiotics - still with residual infiltrate on CXR/CT - unchanged * Cdiff -continue PO Vanco until off abx * UC -balsalazide Subjective: No new complaints Objective: Vital Signs Temp Pulse Resp BP Pulse Ox 36.6 C 96 19 119/67 94 03/04/18 12:00 03/04/18 12:00 03/04/18 12:00 03/04/18 12:00 03/04/18 12:00 Laboratory Results 03/04/18 05:25 03/04/18 05:25 03/03/18 03/04/18 03/05/18 05:59 05:59 05:59 Intake Total 600 1445 905 Output Total 1180 745 Balance -580 700 905 CXR viewed, my personal interpretation is - significant residual RML PNA tele - NSR - Physical Exam Constitutional: no apparent distress, appears nourished, not in pain Cardiovascular: regular rate and rhythym, no murmur, rub, or gallop Respiratory: expiratory wheeze, inspiratory crackles, respiratory distress ( with minimal exertion), rhonchi Gastrointestinal: normoactive bowel sounds, soft, non-tender abdomen, no palpable masses Skin: no rashes or abrasions, no fluctuance, no induration Neurologic: AAOx3, sensation intact bilaterally Psychiatric: interacting appropriately, not anxious, not encephalopathic, thought process linear ICD10 Worksheet Patient Problems: Problems Problem Status Onset Hypoxia Acute Acute respiratory failure with hypoxia Acute Non-traumatic compression fracture of T9 thoracic vertebra Acute Pneumothorax, right Acute Emphysema lung Acute Interstitial edema Acute Chronic Disease Mgmt/Transitional Care Acute Sepsis Acute Pneumonia Acute
[2018-03-04] MEDS: TAMSULOSIN HCL 0.4 MG CAP PO SCH (20:10)
[2018-03-04] MEDS: MELATONIN 3 MG TAB PO SCH (20:10)
[2018-03-04] MEDS: ASPIRIN 81 MG CHEWABLE TAB PO SCH (20:10)
--- NOTE | 2018-03-04 22:20 | CPEKG ---
Test Reason : OPEN Blood Pressure : / mmHG Vent. Rate : 095 BPM Atrial Rate : 096 BPM P-R Int : 173 ms QRS Dur : 083 ms QT Int : 339 ms P-R-T Axes : 028 -16 028 degrees QTc Int : 426 ms Sinus rhythm Atrial premature complexes Leftward axis Confirmed by Azeem Dickey ([id number]) on 03/04/2018 10:19:57 PM Referred By: Confirmed By:Azeem Dickey
[2018-03-05] MEDS: methylPREDNISolone SOD SUCC 125 MG/2 ML VIAL IVP SCH ×2 (00:51→05:43)
[2018-03-05] MEDS: guaiFENesin 600 MG TAB.ER PO PRN ×2 (05:43→22:07)
[2018-03-05] MEDS: VANCOMYCIN 125 MG/2.5 ML UDL PO SCH ×4 (05:43→21:45)
[2018-03-05] MEDS: VSL#3 1 EACH CAP PO SCH ×3 (09:26→21:44)
[2018-03-05] MEDS: BALSALAZIDE DISODIUM 750 MG CAP PO SCH ×3 (09:26→22:00)
[2018-03-05] MEDS: MULTIVITAMINS 1 EACH TAB PO SCH (09:26)
[2018-03-05] MEDS: FAMOTIDINE 20 MG TAB PO SCH (09:26)
[2018-03-05] MEDS: AZITHROMYCIN IV 500 MG in NS 250 ML IV SCH (09:26)
[2018-03-05] MEDS: LISINOPRIL 10 MG TAB PO SCH (09:27)
[2018-03-05] MEDS: ENOXAPARIN 40 MG/0.4 ML SYR SC SCH (09:27)
[2018-03-05] MEDS: FLUTICASONE/SALMETER 100/50MCG DISKUS IH SCH ×2 (09:31→21:30)
[2018-03-05] MEDS: Tiotropium Bromide [Spiriva Respimat] IH SCH (09:31)
--- NOTE | 2018-03-05 15:24 | HOSPPROG ---
Hospitalist Progress Note Assessment/Plan: * Acute on chronic respiratory failure - requiring 12L O2 -wean O2 down as able * COPD exacerbation -steroids, nebs, azithromycin * PTX - due to COPD bleb -chest tube in place * Recent PNA -s/p antibiotics - still with residual infiltrate on CXR/CT - unchanged * Cdiff -continue PO Vanco until off abx * UC -balsalazide Subjective: No new complaints. Objective: Vital Signs Temp Pulse Resp BP Pulse Ox 36.4 C 118 H 23 H 129/91 H 95 03/05/18 12:00 03/05/18 12:00 03/05/18 12:00 03/05/18 12:00 03/05/18 12:00 Laboratory Results 03/04/18 05:25 03/04/18 05:25 03/04/18 03/05/18 03/06/18 05:59 05:59 05:59 Intake Total 1445 2155 Output Total 745 935 100 Balance 700 1220 -100 case d/w Dr. gonzalez regarding pulmonary plan CXR viewed, my personal interpretation is - persistent infiltrate tele reviewed - MAT - Physical Exam Constitutional: no apparent distress, appears nourished, not in pain Cardiovascular: regular rate and rhythym, no murmur, rub, or gallop Respiratory: no respiratory distress, no rales or rhonchi, clear to auscultation Gastrointestinal: normoactive bowel sounds, soft, non-tender abdomen, no palpable masses Skin: no rashes or abrasions, no fluctuance, no induration Neurologic: AAOx3, sensation intact bilaterally Psychiatric: interacting appropriately, not anxious, not encephalopathic, thought process linear ICD10 Worksheet Patient Problems: Problems Problem Status Onset Hypoxia Acute Acute respiratory failure with hypoxia Acute Non-traumatic compression fracture of T9 thoracic vertebra Acute Pneumothorax, right Acute Emphysema lung Acute Interstitial edema Acute Chronic Disease Mgmt/Transitional Care Acute Sepsis Acute Pneumonia Acute
--- NOTE | 2018-03-05 16:52 | PDINTPN ---
Cardiovascular Surgeon Progress Note Assessment/Plan: 82 M with COPD and two recent hospital admissions for CAP, admitted with sudden onset CP and SOB. CXR revealed moderate PTX and a chest tube was placed. This helped but he complained the next morning of increasing dyspnea so solumedrol and Zithromax were added resulting in substantial improvement, though his O2 requirement remains high. * Spontaneous PTX- his chest CT shows severe large bullous emphysema, and his likely poor lung tissue was further compromised by his recent PNA, resulting in high risk for PTX. Followed by CT surgery and placed on water seal 03/04 since his CXR shows no ongoing PTX, his chest tube shows respiratory variation without leak. No air travel for at least 2 weeks. * COPD with exacerbation This has improved with the addition of solumedrol and Zithromax to his advair and duoneb. Changed to prednisone and PO complete a 5- day course of azithromycin. He is followed by Dr. Pimentel (newly) as an outpatient and can see him after discharge for eventual PFTs once the PTX has completely resolved. * hypoxemia- 2/2 both, titrate as tolerated to sat >90%. No evidence of chronic CO2 retention. * tachycardia- he has had periods of tachy-arrythmias of uncertain origin. 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 There are concerns by staff nurse about afib- urged staff to get 12-lead if possible. NO direct rx for MAT (other than lungs). * C diff- started treatment at SNF and I believe completed therapy. remains on contact precautions. * Code status- discussed with palliative care at length today as well as patient. He had a MOST form suggesting CPR was OK but no intubation. Today he was less clear about it and his cognitive processing seemed a bit off. He agreed to full code for now until this can be better clarified at a later date. However, no intubation is quite reasonable for what appears to be late stage COPD. I encouraged him to discuss this with his family, particularly his POA sister * dispo: OK for PCU Subjective: feels better today Objective: Vital Signs Temp Pulse Resp BP Pulse Ox 36.9 C 114 H 20 180/90 H 95 03/05/18 16:00 03/05/18 16:00 03/05/18 16:00 03/05/18 16:00 03/05/18 16:00 Laboratory Results 03/04/18 05:25 03/04/18 05:25 03/04/18 03/05/18 03/06/18 05:59 05:59 05:59 Intake Total 1445 2155 Output Total 745 935 100 Balance 700 1220 -100 Physical Exam - Physical Exam General Appearance: WD/WN, alert, no apparent distress, thin EENT: PERRL/EOMI, No scleral icterus (R), No scleral icterus (L) Neck: supple, No lymphadenopathy (R), No lymphadenopathy (L) Respiratory: accessory muscle use, wheezing (mild diffuse wheezing), No respiratory distress, No rales Cardiac/Chest: regular rate, rhythm, other (periods of tachycardia ?MAT), No edema Abdomen: non-tender, soft, No distended, No guarding, No rebound Skin: normal color, warm/dry, No cyanosis Lymphatic: No no adenopathy Extremities: No pedal edema Neuro/Psych: alert, normal mood/affect, No oriented x 3 ICD10 Worksheet Patient Problems: Problems Problem Status Onset Emphysema lung Acute Hypoxia Acute Interstitial edema Acute Non-traumatic compression fracture of T9 thoracic vertebra Acute Pneumothorax, right Acute Acute respiratory failure with hypoxia Acute Chronic Disease Mgmt/Transitional Care Acute Pneumonia Acute Sepsis Acute
[2018-03-05] MEDS: ASPIRIN 81 MG CHEWABLE TAB PO SCH (21:44)
[2018-03-05] MEDS: MELATONIN 3 MG TAB PO SCH (21:44)
[2018-03-05] MEDS: TAMSULOSIN HCL 0.4 MG CAP PO SCH (21:44)
[2018-03-06] MEDS: VANCOMYCIN 125 MG/2.5 ML UDL PO SCH ×4 (05:34→21:37)
[2018-03-06] MEDS: BALSALAZIDE DISODIUM 750 MG CAP PO SCH ×3 (08:15→21:37)
[2018-03-06] MEDS: predniSONE 20 MG TAB PO SCH (08:15)
[2018-03-06] MEDS: LISINOPRIL 10 MG TAB PO SCH (08:15)
[2018-03-06] MEDS: MULTIVITAMINS 1 EACH TAB PO SCH (08:16)
[2018-03-06] MEDS: AZITHROMYCIN 250 MG TAB PO SCH (08:16)
[2018-03-06] MEDS: ENOXAPARIN 40 MG/0.4 ML SYR SC SCH (08:16)
[2018-03-06] MEDS: FAMOTIDINE 20 MG TAB PO SCH (08:16)
[2018-03-06] MEDS: FLUTICASONE/SALMETER 100/50MCG DISKUS IH SCH ×2 (08:17→20:30)
[2018-03-06] MEDS: Tiotropium Bromide [Spiriva Respimat] IH SCH (08:18)
[2018-03-06] MEDS: VSL#3 1 EACH CAP PO SCH ×3 (08:53→21:45)
[2018-03-06] MEDS: LEVALBUTEROL 1.25 MG/3 ML DEYVIAL IH PRN ×2 (13:01→20:28)
--- NOTE | 2018-03-06 14:36 | PDINTPN ---
Casino Assistant Manager Progress Note Assessment/Plan: 82 M with COPD and two recent hospital admissions for CAP, admitted with sudden onset CP and SOB. CXR revealed moderate PTX and a chest tube was placed. This helped but he complained the next morning of increasing dyspnea so solumedrol and Zithromax were added resulting in substantial improvement, though his O2 requirement remains high. * Spontaneous PTX- his chest CT shows severe large bullous emphysema, and his likely poor lung tissue was further compromised by his recent PNA, resulting in high risk for PTX. Chest tube removed today and now with symptoms. Stat CXR pending. * COPD with exacerbation This has improved with the addition of prednisone and PO azithromycin to complete a 5-day course. He is followed by Dr. Pimentel (newly) as an outpatient and can see him after discharge for eventual PFTs once the PTX has completely resolved. * hypoxemia- 2/2 both, titrate as tolerated to sat >90%. No evidence of chronic CO2 retention. * tachycardia- he has had periods of tachy-arrythmias of uncertain origin. 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 There are concerns by staff scientist about afib- urged staff to get 12-lead if possible. NO direct rx for MAT (other than lungs). * C diff- started treatment at SNF and I believe completed therapy. remains on contact precautions. * Code status- discussed with palliative care at length today as well as patient. He had a MOST form suggesting CPR was OK but no intubation. Today he was less clear about it and his cognitive processing seemed a bit off. He agreed to full code for now until this can be better clarified at a later date. However, no intubation is quite reasonable for what appears to be late stage COPD. I encouraged him to discuss this with his family, particularly his POA sister 03/06/18 14:34 Subjective: feels OK and had CT removed this am- now complains of substernal chest pain and increasing cough Objective: Vital Signs Temp Pulse Resp BP Pulse Ox 36.6 C 98 16 153/90 H 91 L 03/06/18 11:28 03/06/18 13:02 03/06/18 13:02 03/06/18 11:28 03/06/18 13:02 Laboratory Results 03/04/18 05:25 03/04/18 05:25 03/05/18 03/06/18 03/07/18 05:59 05:59 05:59 Intake Total 2155 1100 Output Total 935 1320 Balance 1220 -220 Physical Exam - Physical Exam General Appearance: alert, mild distress, thin EENT: PERRL/EOMI, No scleral icterus (R), No scleral icterus (L) Neck: full range of motion, supple Respiratory: lungs clear, accessory muscle use, decreased breath sounds (right) , No respiratory distress Cardiac/Chest: regular rate, rhythm, tachycardia, No edema Abdomen: non-tender, soft, No distended, No guarding Skin: normal color, warm/dry, No cyanosis Lymphatic: no adenopathy Extremities: No pedal edema Neuro/Psych: alert, normal mood/affect, oriented x 3 ICD10 Worksheet Patient Problems: Problems Problem Status Onset Emphysema lung Acute Hypoxia Acute Interstitial edema Acute Non-traumatic compression fracture of T9 thoracic vertebra Acute Pneumothorax, right Acute Acute respiratory failure with hypoxia Acute Chronic Disease Mgmt/Transitional Care Acute Pneumonia Acute Sepsis Acute
--- NOTE | 2018-03-06 15:31 | ASMTCMCOM ---
CM Note CM Note Notes: Pts case discussed in tx rounds. Therapies are recommending SNF. Pt does not mind going back to [facility]. Pt had a couple of questions; will he have the suction available at snf, would he will under precaution and confined to his room to do therapies. CM asked Katerine from [facility] these questions. Katerine will get back to CM. CM to follow. Plan: SNF [facility]/ [facility] Date Signed: 03/06/2018 03:17 PM Electronically Signed By:SENG Gama
--- NOTE | 2018-03-06 16:09 | HOSPPROG ---
Hospitalist Progress Note Assessment/Plan: * Acute on chronic respiratory failure - still very high O2 needs -wean O2 down as able * COPD exacerbation -steroids, nebs, azithromycin * PTX - due to COPD bleb -chest tube removed today * Recent PNA -s/p antibiotics - still with residual infiltrate on CXR/CT - unchanged * Cdiff -continue PO Vanco until off abx * UC -balsalazide Subjective: Having new chest pain of chest wall after chest tube removal Objective: Vital Signs Temp Pulse Resp BP Pulse Ox 36.6 C 98 16 153/90 H 91 L 03/06/18 11:28 03/06/18 13:02 03/06/18 13:02 03/06/18 11:28 03/06/18 13:02 Laboratory Results 03/04/18 05:25 03/04/18 05:25 03/05/18 03/06/18 03/07/18 05:59 05:59 05:59 Intake Total 2155 1100 Output Total 935 1320 150 Balance 1220 -220 -150 CXR viewed, my personal interpretation is - no PTX, infiltrate improved tele reviewed - sinus, no SVT or MAT - Physical Exam Constitutional: no apparent distress, appears nourished, not in pain Cardiovascular: regular rate and rhythym, no murmur, rub, or gallop Respiratory: respiratory distress (with any exertion), No expiratory wheeze, No inspiratory crackles, No rhonchi Gastrointestinal: normoactive bowel sounds, soft, non-tender abdomen, no palpable masses Skin: no rashes or abrasions, no fluctuance, no induration Neurologic: AAOx3, sensation intact bilaterally Psychiatric: interacting appropriately, not anxious, not encephalopathic, thought process linear ICD10 Worksheet Patient Problems: Problems Problem Status Onset Hypoxia Acute Acute respiratory failure with hypoxia Acute Non-traumatic compression fracture of T9 thoracic vertebra Acute Pneumothorax, right Acute Emphysema lung Acute Interstitial edema Acute Chronic Disease Mgmt/Transitional Care Acute Sepsis Acute Pneumonia Acute
[2018-03-06] MEDS ORDERED: NS 1,000 ML IV SCH (20:00)
[2018-03-06] MEDS: KETOROLAC 15 MG/1 ML SDV IVP PRN (21:01)
[2018-03-06] MEDS: ASPIRIN 81 MG CHEWABLE TAB PO SCH (21:36)
[2018-03-06] MEDS: MELATONIN 3 MG TAB PO SCH (21:37)
[2018-03-06] MEDS: TAMSULOSIN HCL 0.4 MG CAP PO SCH (21:37)
[2018-03-06] MEDS: guaiFENesin 600 MG TAB.ER PO PRN (21:45)
[2018-03-07] MEDS: VANCOMYCIN 125 MG/2.5 ML UDL PO SCH ×2 (06:11→11:55)
--- NOTE | 2018-03-07 07:08 | CPEKG ---
Test Reason : OPEN Blood Pressure : / mmHG Vent. Rate : 094 BPM Atrial Rate : 090 BPM P-R Int : 162 ms QRS Dur : 089 ms QT Int : 391 ms P-R-T Axes : 025 -17 031 degrees QTc Int : 490 ms Sinus rhythm Atrial premature complexes Borderline left axis deviation Confirmed by Azeem Dickey ([id number]) on 03/07/2018 7:07:45 AM Referred By: Confirmed By:Azeem Dickey
[2018-03-07] MEDS: ENOXAPARIN 40 MG/0.4 ML SYR SC SCH (09:01)
[2018-03-07] MEDS: BALSALAZIDE DISODIUM 750 MG CAP PO SCH ×3 (09:03→22:31)
[2018-03-07] MEDS: LISINOPRIL 10 MG TAB PO SCH (09:03)
[2018-03-07] MEDS: predniSONE 20 MG TAB PO SCH (09:05)
[2018-03-07] MEDS: MULTIVITAMINS 1 EACH TAB PO SCH (09:05)
[2018-03-07] MEDS: FAMOTIDINE 20 MG TAB PO SCH (09:05)
[2018-03-07] MEDS: AZITHROMYCIN 250 MG TAB PO SCH (09:05)
[2018-03-07] MEDS: guaiFENesin 600 MG TAB.ER PO PRN (09:33)
[2018-03-07] MEDS: VSL#3 1 EACH CAP PO SCH ×3 (09:33→22:32)
[2018-03-07] MEDS: FLUTICASONE/SALMETER 100/50MCG DISKUS IH SCH ×2 (09:48→21:00)
[2018-03-07] MEDS: Tiotropium Bromide [Spiriva Respimat] IH SCH (09:48)
[2018-03-07] MEDS: ACETAMINOPHEN 325 MG TAB PO PRN ×2 (12:56→22:38)
--- NOTE | 2018-03-07 13:31 | ASMTCMCOM ---
CM Note CM Note Notes: Call from [facility] [place] - patient was enrolled in homecare with them after he d/c'ed from [facility] 02/24/18. I let them know that he will likely d/c from hospital to SNF. I also sent a referral to [facility] - per chart review, they opened patient 02/27 and were planning to see him on 03/10 at home. Patient will d/c to [facility] SNF - there are some questions remaining about whether he will d/c on Vanco/contact precautions for C Diff, and I have not been able to get an answer about this. We will need to let [facility] know this information prior to d/c. Patient agrees to plan. Case Management will follow. Date Signed: 03/07/2018 01:31 PM Electronically Signed By:Elena Tan RN
--- NOTE | 2018-03-07 16:03 | HOSPPROG ---
Hospitalist Progress Note Assessment/Plan: * Acute on chronic respiratory failure - still very high O2 needs -wean O2 down as able * COPD exacerbation -steroids, nebs, azithromycin * PTX - due to COPD bleb -chest tube removed * Recent PNA -s/p antibiotics - still with residual infiltrate on CXR/CT - unchanged * Cdiff -PO vanco complete * UC -balsalazide Subjective: Better Objective: Vital Signs Temp Pulse Resp BP Pulse Ox 36.7 C 98 15 173/100 H 93 03/07/18 12:00 03/07/18 12:00 03/07/18 12:00 03/07/18 12:00 03/07/18 12:00 Laboratory Results 03/04/18 05:25 03/04/18 05:25 03/06/18 03/07/18 03/08/18 05:59 05:59 05:59 Intake Total 1100 1175 Output Total 1320 470 700 Balance -220 705 -700 EKG done last PM for unclear reasons - my personal interpretation is - NSR, no ischemic ST changes tele - NSR - Physical Exam Constitutional: no apparent distress, appears nourished, not in pain Cardiovascular: regular rate and rhythym, no murmur, rub, or gallop Respiratory: no respiratory distress, no rales or rhonchi, clear to auscultation Gastrointestinal: normoactive bowel sounds, soft, non-tender abdomen, no palpable masses Skin: no rashes or abrasions, no fluctuance, no induration Neurologic: AAOx3, sensation intact bilaterally Psychiatric: interacting appropriately, not anxious, not encephalopathic, thought process linear ICD10 Worksheet Patient Problems: Problems Problem Status Onset Hypoxia Acute Acute respiratory failure with hypoxia Acute Non-traumatic compression fracture of T9 thoracic vertebra Acute Pneumothorax, right Acute Emphysema lung Acute Interstitial edema Acute Chronic Disease Mgmt/Transitional Care Acute Sepsis Acute Pneumonia Acute
--- NOTE | 2018-03-07 16:26 | PDINTPN ---
Computer Repairer Progress Note Assessment/Plan: 82 M with COPD and two recent hospital admissions for CAP, admitted with sudden onset CP and SOB. CXR revealed moderate PTX and a chest tube was placed. This helped but he complained the next morning of increasing dyspnea so solumedrol and Zithromax were added resulting in substantial improvement, though his O2 requirement remains high. * Spontaneous PTX- his chest CT shows severe large bullous emphysema, and his likely poor lung tissue was further compromised by his recent PNA, resulting in high risk for PTX. Chest tube removed today and now with symptoms. no PTX. * COPD with exacerbation This has improved with the addition of prednisone and PO azithromycin to complete a 5-day course. He is followed by Dr. Pimentel ([facility]) as an outpatient and can see him after discharge for eventual PFTs once the PTX has completely resolved. * hypoxemia- 2/2 both, titrate as tolerated to sat >90%. No evidence of chronic CO2 retention. * tachycardia- he has had periods of tachy-arrythmias of uncertain origin. 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 There are concerns by chief of staff doctor about afib- urged staff to get 12-lead if possible. NO direct rx for MAT (other than lungs). * C diff- started treatment at SNF and I believe completed therapy. remains on contact precautions. * Code status- planning to discuss with sister ANATOLIY tomorrow * * * 03/06/18 14:34 03/07/18 16:24 Subjective: chest tube dc'd yesterday; still sob= about the same Objective: Vital Signs Temp Pulse Resp BP Pulse Ox 36.7 C 98 15 173/100 H 93 03/07/18 12:00 03/07/18 12:00 03/07/18 12:00 03/07/18 12:00 03/07/18 12:00 Laboratory Results 03/04/18 05:25 03/04/18 05:25 03/06/18 03/07/18 03/08/18 05:59 05:59 05:59 Intake Total 1100 1175 Output Total 1320 470 700 Balance -220 705 -700 Physical Exam - Physical Exam General Appearance: alert, no apparent distress, thin EENT: PERRL/EOMI, No scleral icterus (R), No scleral icterus (L) Neck: full range of motion, supple Respiratory: lungs clear, normal breath sounds, accessory muscle use, decreased breath sounds, No respiratory distress, No wheezing Cardiac/Chest: regular rate, rhythm, No edema Abdomen: non-tender, soft, No distended Skin: normal color, warm/dry, No cyanosis Lymphatic: no adenopathy Extremities: No pedal edema Neuro/Psych: alert, normal mood/affect, oriented x 3 ICD10 Worksheet Patient Problems: Problems Problem Status Onset Emphysema lung Acute Hypoxia Acute Interstitial edema Acute Non-traumatic compression fracture of T9 thoracic vertebra Acute Pneumothorax, right Acute Acute respiratory failure with hypoxia Acute Chronic Disease Mgmt/Transitional Care Acute Pneumonia Acute Sepsis Acute
[2018-03-07] MEDS: LEVALBUTEROL 1.25 MG/3 ML DEYVIAL IH SCH (20:58)
[2018-03-07] MEDS: MELATONIN 3 MG TAB PO SCH (22:31)
[2018-03-07] MEDS: ASPIRIN 81 MG CHEWABLE TAB PO SCH (22:32)
[2018-03-07] MEDS: TAMSULOSIN HCL 0.4 MG CAP PO SCH (22:32)
[2018-03-08] MEDS: VSL#3 1 EACH CAP PO SCH ×3 (08:40→21:25)
[2018-03-08] MEDS: BALSALAZIDE DISODIUM 750 MG CAP PO SCH ×3 (08:41→21:24)
[2018-03-08] MEDS: guaiFENesin 600 MG TAB.ER PO PRN (08:42)
[2018-03-08] MEDS: predniSONE 20 MG TAB PO SCH (08:42)
[2018-03-08] MEDS: FAMOTIDINE 20 MG TAB PO SCH (08:43)
[2018-03-08] MEDS: LISINOPRIL 10 MG TAB PO SCH (08:43)
[2018-03-08] MEDS: MULTIVITAMINS 1 EACH TAB PO SCH (08:43)
[2018-03-08] MEDS: ACETAMINOPHEN 325 MG TAB PO PRN (09:10)
[2018-03-08] MEDS: ENOXAPARIN 40 MG/0.4 ML SYR SC SCH (09:11)
[2018-03-08] MEDS: LEVALBUTEROL 1.25 MG/3 ML DEYVIAL IH SCH ×3 (09:32→20:51)
[2018-03-08] MEDS: Tiotropium Bromide [Spiriva Respimat] IH SCH (09:36)
[2018-03-08] MEDS: FLUTICASONE/SALMETER 100/50MCG DISKUS IH SCH ×2 (09:36→20:51)
[2018-03-08] MEDS: ACETYLCYSTEINE 10% IH/PO 4 ML VIAL IH SCH ×3 (15:01→20:50)
[2018-03-08] MEDS: LORazepam 0.5 MG TAB PO PRN ×2 (15:35→21:24)
--- NOTE | 2018-03-08 15:38 | PDINTPN ---
Office Mover Progress Note Assessment/Plan: 82 M with COPD and two recent hospital admissions for CAP, admitted with sudden onset CP and SOB. CXR revealed moderate PTX and a chest tube was placed. This helped but he complained the next morning of increasing dyspnea so solumedrol and Zithromax were added resulting in substantial improvement, though his O2 requirement remains high. * Spontaneous PTX- his chest CT shows severe large bullous emphysema, and his likely poor lung tissue was further compromised by his recent PNA, resulting in high risk for PTX. Chest tube removed 03/07 and now with symptoms. no PTX on CXR 03/08 * COPD with exacerbation This has improved with the addition of prednisone and PO azithromycin to complete a 5-day course. He is followed by Dr. Pimentel ([facility]) as an outpatient and can see him after discharge for eventual PFTs once the PTX has completely resolved. * hypoxemia- 2/2 both, titrate as tolerated to sat >90%. No evidence of chronic CO2 retention. * tachycardia- he has had periods of tachy-arrythmias of uncertain origin. 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 There are concerns by member of technical staff about afib- urged staff to get 12-lead if possible. NO direct rx for MAT (other than lungs). * C diff- started treatment at SNF and I believe completed therapy. remains on contact precautions. * Code status- planning to discuss with sister ANATOLIY tomorrow * Subjective: continues to improve Objective: Vital Signs Temp Pulse Resp BP Pulse Ox 36.5 C 85 22 H 130/80 H 94 03/08/18 14:32 03/08/18 15:30 03/08/18 15:30 03/08/18 14:32 03/08/18 15:30 Laboratory Results 03/04/18 05:25 03/04/18 05:25 03/07/18 03/08/18 03/09/18 05:59 05:59 05:59 Intake Total 1175 300 Output Total 470 1450 350 Balance 705 -1150 -350 Physical Exam - Physical Exam General Appearance: WD/WN, alert, no apparent distress, thin EENT: PERRL/EOMI, No scleral icterus (R), No scleral icterus (L) Neck: full range of motion, supple Respiratory: lungs clear, normal breath sounds, decreased breath sounds, No respiratory distress, No accessory muscle use, No rales, No rhonchi, No wheezing Cardiac/Chest: regular rate, rhythm, No edema, No tachycardia Abdomen: non-tender, soft, No distended, No guarding Skin: normal color, warm/dry, No cyanosis Lymphatic: no adenopathy Extremities: non-tender, No pedal edema Neuro/Psych: alert, normal mood/affect, oriented x 3 ICD10 Worksheet Patient Problems: Problems Problem Status Onset Emphysema lung Acute Hypoxia Acute Interstitial edema Acute Non-traumatic compression fracture of T9 thoracic vertebra Acute Pneumothorax, right Acute Acute respiratory failure with hypoxia Acute Chronic Disease Mgmt/Transitional Care Acute Pneumonia Acute Sepsis Acute
--- NOTE | 2018-03-08 16:21 | ASMTCMCOM ---
CM Note CM Note Notes: CM spoke with RN, date of discharge TBD. Oxygen needs are high. Vancomycin was discontinued, contact precautions likely not required at discharge.Per chart review [facility] opened on 02/27, scheduled to see patient 03/10. CM to follow. Current D/C Plan: [facility], date TBD. Date Signed: 03/08/2018 04:20 PM Electronically Signed By:Italia Jeffries
--- NOTE | 2018-03-08 16:48 | HOSPPROG ---
Hospitalist Progress Note Assessment/Plan: * Acute on chronic respiratory failure - still very high O2 needs -wean O2 down as able -suspect secretions are a major issue - continue aggressive pulm hygiene * COPD exacerbation -steroids, nebs -azithromycin x 5 days complete * PTX - due to COPD bleb -chest tube removed * Recent PNA -s/p antibiotics - still with residual infiltrate on CXR/CT - unchanged * Cdiff -PO vanco complete * UC -balsalazide Subjective: Still extreme SOB, very anxious, desats rapidly with any movement Objective: Vital Signs Temp Pulse Resp BP Pulse Ox 36.5 C 85 22 H 130/80 H 94 03/08/18 14:32 03/08/18 15:30 03/08/18 15:30 03/08/18 14:32 03/08/18 15:30 Laboratory Results 03/04/18 05:25 03/04/18 05:25 03/07/18 03/08/18 03/09/18 05:59 05:59 05:59 Intake Total 1175 300 575 Output Total 470 1450 475 Balance 705 -1150 100 CXR viewed, my personal interpretation is - persistent infiltrate tele - NSR with lots of ectopy - Physical Exam Constitutional: no apparent distress, appears nourished, not in pain Cardiovascular: regular rate and rhythym, no murmur, rub, or gallop Respiratory: expiratory wheeze, inspiratory crackles, respiratory distress, rhonchi Gastrointestinal: normoactive bowel sounds, soft, non-tender abdomen, no palpable masses Skin: no rashes or abrasions, no fluctuance, no induration Neurologic: AAOx3, sensation intact bilaterally Psychiatric: interacting appropriately, not anxious, not encephalopathic, thought process linear ICD10 Worksheet Patient Problems: Problems Problem Status Onset Hypoxia Acute Acute respiratory failure with hypoxia Acute Non-traumatic compression fracture of T9 thoracic vertebra Acute Pneumothorax, right Acute Emphysema lung Acute Interstitial edema Acute Chronic Disease Mgmt/Transitional Care Acute Sepsis Acute Pneumonia Acute
[2018-03-08] MEDS: ASPIRIN 81 MG CHEWABLE TAB PO SCH (21:24)
[2018-03-08] MEDS: MELATONIN 3 MG TAB PO SCH (21:24)
[2018-03-08] MEDS: guaiFENesin 600 MG TAB.ER PO SCH (21:24)
[2018-03-08] MEDS: TAMSULOSIN HCL 0.4 MG CAP PO SCH (21:24)
[2018-03-09] MEDS: LORazepam 0.5 MG TAB PO PRN ×2 (02:20→22:29)
[2018-03-09] MEDS: LEVALBUTEROL 1.25 MG/3 ML DEYVIAL IH SCH ×3 (03:42→21:38)
[2018-03-09] MEDS: ACETYLCYSTEINE 10% IH/PO 4 ML VIAL IH SCH (03:42)
[2018-03-09 04:14] LABS: PLATELET COUNT 394 10^3/uL (150-400)
[2018-03-09] MEDS: guaiFENesin 600 MG TAB.ER PO SCH ×2 (08:59→20:25)
[2018-03-09] MEDS: predniSONE 20 MG TAB PO SCH (09:00)
[2018-03-09] MEDS: LISINOPRIL 10 MG TAB PO SCH (09:00)
[2018-03-09] MEDS: BALSALAZIDE DISODIUM 750 MG CAP PO SCH ×3 (09:00→20:24)
[2018-03-09] MEDS: MULTIVITAMINS 1 EACH TAB PO SCH (09:01)
[2018-03-09] MEDS: ENOXAPARIN 40 MG/0.4 ML SYR SC SCH (09:01)
[2018-03-09] MEDS: FAMOTIDINE 20 MG TAB PO SCH (09:01)
[2018-03-09] MEDS: Tiotropium Bromide [Spiriva Respimat] IH SCH (10:31)
[2018-03-09] MEDS: FLUTICASONE/SALMETER 100/50MCG DISKUS IH SCH ×2 (10:31→21:38)
[2018-03-09] MEDS: VSL#3 1 EACH CAP PO SCH ×3 (15:56→22:33)
--- NOTE | 2018-03-09 16:44 | PDINTPN ---
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 CXR revealed moderate PTX and a chest tube was placed. This helped but he complained the next morning of increasing dyspnea so solumedrol and Zithromax were added resulting in substantial improvement, though his O2 requirement remains high. * Spontaneous PTX- his chest CT shows severe large bullous emphysema, and his likely poor lung tissue was further compromised by his recent PNA, resulting in high risk for PTX. Chest tube removed 03/07 and now with symptoms. no PTX on CXR 03/08 * COPD with exacerbation This has improved with the addition of prednisone and PO azithromycin to complete a 5-day course. Continues to have productive cough. * hypoxemia- 2/2 both, titrate as tolerated to sat >90%. No evidence of chronic CO2 retention. * tachycardia- he has had periods of tachy-arrythmias of uncertain origin. 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 There are concerns by housekeeping staff about afib- urged staff to get 12-lead if possible. NO direct rx for MAT (other than lungs). * C diff- started treatment at SNF and I believe completed therapy. remains on contact precautions. * Code status- planning to discuss with sister ANATOLIY later today. We discussed this at some length with the patient and his friend. Plan: Add Mucomyst. Continue Prednisone, Advair. Repeat BNP, CXR. Hopefully transfer to SNF in 1-2 days. 03/09/18 16:45 Subjective: Still having significant productive cough, which she attributes to Mucinex. Strength is improved a bit. Objective: Vital Signs Temp Pulse Resp BP Pulse Ox 36.7 C 109 H 18 117/83 H 90 L 03/09/18 15:51 03/09/18 15:51 03/09/18 14:14 03/09/18 15:51 03/09/18 15:51 Microbiology 03/07/18 21:00 - Final Sputum, Expectorated Laboratory Results 03/09/18 03:38 03/09/18 03:30 03/08/18 03/09/18 03/10/18 05:59 05:59 05:59 Intake Total 300 1015 Output Total 4850 366 2299 Balance -1150 540 -1150 CXR: No PTX. Improved right infiltrate compared to January. Images reviewed by me. Physical Exam - Physical Exam General Appearance: alert, no apparent distress EENT: normal ENT inspection Neck: normal inspection Respiratory: crackles Cardiac/Chest: regular rate, rhythm, No edema Abdomen: normal bowel sounds, non-tender, soft Skin: normal color, warm/dry Extremities: normal inspection Neuro/Psych: alert, normal mood/affect, oriented x 3 ICD10 Worksheet Patient Problems: Problems Problem Status Onset Emphysema lung Acute Hypoxia Acute Interstitial edema Acute Non-traumatic compression fracture of T9 thoracic vertebra Acute Pneumothorax, right Acute Acute respiratory failure with hypoxia Acute Chronic Disease Mgmt/Transitional Care Acute Pneumonia Acute Sepsis Acute
[2018-03-09] MEDS: UBIDECARENONE 200 MG PO SCH (17:09)
--- NOTE | 2018-03-09 17:09 | HOSPPROG ---
Hospitalist Progress Note Assessment/Plan: * Acute on chronic respiratory failure - still very high O2 needs -wean O2 down as able, nearing prior baseline of 4L/min -suspect secretions are a major issue - continue aggressive pulm hygiene, adding mucomyst, cont mucinex -repeat CXR in AM * COPD exacerbation -steroids, nebs -azithromycin x 5 days complete * PTX - due to COPD bleb -chest tube removed * Elevated BNP - euvolemic -recheck BNP in AM, hold on diuresis * Recent PNA -s/p antibiotics - still with residual infiltrate on CXR/CT - unchanged * Cdiff -PO vanco completed * UC -balsalazide Subjective: Overall doing better. Still with high O2 requirements. Coughing up lots of mucous. Objective: Vital Signs Temp Pulse Resp BP Pulse Ox 36.7 C 109 H 18 117/83 H 90 L 03/09/18 15:51 03/09/18 15:51 03/09/18 14:14 03/09/18 15:51 03/09/18 15:51 Microbiology 03/07/18 21:00 - Final Sputum, Expectorated Laboratory Results 03/09/18 03:38 03/09/18 03:30 03/08/18 03/09/18 03/10/18 05:59 05:59 05:59 Intake Total 300 1015 Output Total 7685 765 2497 Balance -1150 540 -1150 - Physical Exam Constitutional: no apparent distress, appears nourished, not in pain Eyes: PERRL, anicteric sclera, EOMI Ears, Nose, Mouth, Throat: moist mucous membranes, hearing normal, ears appear normal, no oral mucosal ulcers Cardiovascular: regular rate and rhythym, no murmur, rub, or gallop, No edema Respiratory: no respiratory distress, reduced air movement Gastrointestinal: normoactive bowel sounds, soft, non-tender abdomen, no palpable masses Genitourinary: no bladder fullness, no bladder tenderness, no renal bruits Skin: no rashes or abrasions, no fluctuance, no induration Musculoskeletal: full muscle strength, no muscle tenderness, normal joint ROM Neurologic: AAOx3, sensation intact bilaterally Psychiatric: interacting appropriately, not anxious, not encephalopathic, thought process linear ICD10 Worksheet Patient Problems: Problems Problem Status Onset Emphysema lung Acute Hypoxia Acute Interstitial edema Acute Non-traumatic compression fracture of T9 thoracic vertebra Acute Pneumothorax, right Acute Acute respiratory failure with hypoxia Acute Chronic Disease Mgmt/Transitional Care Acute Pneumonia Acute Sepsis Acute
[2018-03-09] MEDS: ASPIRIN 81 MG CHEWABLE TAB PO SCH (20:25)
[2018-03-09] MEDS: MELATONIN 3 MG TAB PO SCH (20:25)
[2018-03-09] MEDS: TAMSULOSIN HCL 0.4 MG CAP PO SCH (20:25)
[2018-03-09] MEDS: ACETYLCYSTEINE 20% IH/PO 4 ML VIAL IH SCH ×2 (21:37→21:38)
[2018-03-09] MEDS: ACETAMINOPHEN 325 MG TAB PO PRN (22:29)
[2018-03-10] MEDS: LORazepam 0.5 MG TAB PO PRN ×2 (03:21→23:54)
[2018-03-10] MEDS: ACETYLCYSTEINE 20% IH/PO 4 ML VIAL IH SCH ×4 (06:17→20:34)
[2018-03-10] MEDS: LEVALBUTEROL 1.25 MG/3 ML DEYVIAL IH SCH ×3 (06:25→20:33)
[2018-03-10] MEDS: ENOXAPARIN 40 MG/0.4 ML SYR SC SCH (08:26)
[2018-03-10] MEDS: FLUTICASONE/SALMETER 100/50MCG DISKUS IH SCH ×2 (08:29→20:33)
[2018-03-10] MEDS: Tiotropium Bromide [Spiriva Respimat] IH SCH (08:30)
[2018-03-10] MEDS: BALSALAZIDE DISODIUM 750 MG CAP PO SCH ×3 (08:32→21:01)
[2018-03-10] MEDS: guaiFENesin 600 MG TAB.ER PO SCH ×2 (08:32→20:13)
[2018-03-10] MEDS: VSL#3 1 EACH CAP PO SCH ×3 (08:33→20:13)
[2018-03-10] MEDS: LISINOPRIL 10 MG TAB PO SCH (08:33)
[2018-03-10] MEDS: MULTIVITAMINS 1 EACH TAB PO SCH (08:33)
[2018-03-10] MEDS: predniSONE 20 MG TAB PO SCH (08:34)
[2018-03-10] MEDS: FAMOTIDINE 20 MG TAB PO SCH (08:35)
--- NOTE | 2018-03-10 13:03 | PDINTPN ---
Invoicing Specialist Progress Note Assessment/Plan: 83-year-old severe lung disease is admitted with acute on chronic respiratory failure. His course was complicated by a pneumothorax, spontaneous due to COPD bleb. * Acute on chronic respiratory failure - still very high O2 needs -wean O2 down as able, nearing prior baseline of 4L/min still requiring 5 L at rest and up to 10 L with any exertion -suspect secretions are a major issue - continue aggressive pulm hygiene, adding mucomyst, cont mucinex * COPD exacerbation -steroids, nebs -azithromycin x 5 days complete * PTX - due to COPD bleb -chest tube removed * Elevated BNP - euvolemic -BNP more elevated, could consider diuresis. Will discuss with pulmonology * Recent PNA -s/p antibiotics - still with residual infiltrate on CXR/CT - unchanged * Cdiff -PO vanco completed * UC -balsalazide Subjective: Patient new to me and chart reviewed. Still quite short of breath with any exertion. Otherwise comfortable Objective: Vital Signs Temp Pulse Resp BP Pulse Ox 36.3 C 87 20 113/80 94 03/10/18 11:32 03/10/18 11:32 03/10/18 11:32 03/10/18 11:32 03/10/18 11:32 Microbiology 03/07/18 21:00 - Final Sputum, Expectorated Laboratory Results 03/09/18 03:38 03/09/18 03:30 03/09/18 03/10/18 03/11/18 05:59 05:59 05:59 Intake Total 1015 300 Output Total 475 1600 Balance 540 -1300 Physical Exam - Physical Exam General Appearance: alert, mild distress EENT: PERRL/EOMI Neck: non-tender Respiratory: respiratory distress, decreased breath sounds Cardiac/Chest: normal peripheral pulses, regular rate, rhythm, No edema Abdomen: non-tender Skin: normal color Neuro/Psych: normal mood/affect, oriented x 3 ICD10 Worksheet Patient Problems: Problems Problem Status Onset Hypoxia Acute Acute respiratory failure with hypoxia Acute Non-traumatic compression fracture of T9 thoracic vertebra Acute Pneumothorax, right Acute Emphysema lung Acute Interstitial edema Acute Chronic Disease Mgmt/Transitional Care Acute Sepsis Acute Pneumonia Acute
--- NOTE | 2018-03-10 13:06 | HOSPPROG ---
Hospitalist Progress Note Assessment/Plan: 83-year-old with a history of pneumonia and respiratory failure is admitted with acute on chronic respiratory failure complicated by spontaneous pneumothorax due to bleb * Acute on chronic respiratory failure - still very high O2 needs -wean O2 down as able. Still requiring 5-10 L depending on activity level -suspect secretions are a major issue - continue aggressive pulm hygiene, adding mucomyst, cont mucinex -chest x-ray stable to slightly improved * COPD exacerbation -steroids, nebs -azithromycin x 5 days complete * PTX - due to COPD bleb -chest tube removed * Elevated BNP - euvolemic -BNP slightly elevated, consider resuming diuresis * Recent PNA -s/p antibiotics - still with residual infiltrate on CXR/CT - unchanged * Cdiff -PO vanco completed * UC -balsalazide Subjective: Patient new to me and chart reviewed. Patient feels about the same not feeling good this morning. Still requires significant oxygen with minimal exertion. No diarrhea Objective: Vital Signs Temp Pulse Resp BP Pulse Ox 36.3 C 87 20 113/80 94 03/10/18 11:32 03/10/18 11:32 03/10/18 11:32 03/10/18 11:32 03/10/18 11:32 Microbiology 03/07/18 21:00 - Final Sputum, Expectorated Laboratory Results 03/09/18 03:38 03/09/18 03:30 03/09/18 03/10/18 03/11/18 05:59 05:59 05:59 Intake Total 1015 300 Output Total 475 1600 100 Balance 540 -1300 -100 - Physical Exam Constitutional: not in pain Eyes: PERRL Ears, Nose, Mouth, Throat: moist mucous membranes Cardiovascular: regular rate and rhythym Respiratory: reduced air movement, respiratory distress Gastrointestinal: soft, non-tender abdomen Genitourinary: no bladder fullness Skin: warm Musculoskeletal: generalized weakness Neurologic: AAOx3 Psychiatric: interacting appropriately ICD10 Worksheet Patient Problems: Problems Problem Status Onset Emphysema lung Acute Hypoxia Acute Interstitial edema Acute Non-traumatic compression fracture of T9 thoracic vertebra Acute Pneumothorax, right Acute Acute respiratory failure with hypoxia Acute Chronic Disease Mgmt/Transitional Care Acute Pneumonia Acute Sepsis Acute
[2018-03-10] MEDS: UBIDECARENONE 200 MG PO SCH ×2 (14:10→16:08)
[2018-03-10] MEDS ORDERED: FUROSEMIDE 20 MG/2 ML VIAL IVP ONE (16:31)
--- NOTE | 2018-03-10 16:31 | PDINTPN ---
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 CXR revealed moderate PTX and a chest tube was placed. This helped but he complained the next morning of increasing dyspnea so solumedrol and Zithromax were added resulting in substantial improvement, though his O2 requirement remains high. * Spontaneous PTX- his chest CT shows severe large bullous emphysema, and his likely poor lung tissue was further compromised by his recent PNA, resulting in high risk for PTX. Chest tube removed 03/07 and now with symptoms. no PTX on CXR 03/08 * COPD with exacerbation This has improved with the addition of prednisone and PO azithromycin to complete a 5-day course. Continues to have productive cough. * hypoxemia- 2/2 both, titrate as tolerated to sat >90%. No evidence of chronic CO2 retention. Elevated BNP could be due to pulmonary hypertension, but also could be related to some mild fluid overload. * tachycardia- he has had periods of tachy-arrythmias of uncertain origin. 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 There are concerns by staffing associate about afib- urged staff to get 12-lead if possible. NO direct rx for MAT (other than lungs). * C diff- started treatment at SNF and I believe completed therapy. remains on contact precautions. * Code status- planning to discuss with sister ANATOLIY later today. We discussed this at some length with the patient and his friend. Plan: Continue Prednisone, Advair, Mucinex, Mucomyst. Decrease prednisone. Lasix IV today, then p.o. Tomorrow 03/10/18 16:31 Subjective: Feels a bit better. Strength slightly improved, although still not back to baseline. Decreased sputum production this afternoon, which he attributes to taking Mucomyst earlier which helped him bring up some sputum. Still gets quite dyspneic and hypoxemic with fairly minimal exertion. Objective: Vital Signs Temp Pulse Resp BP Pulse Ox 36.4 C 102 H 18 123/78 H 94 03/10/18 15:35 03/10/18 15:35 03/10/18 15:35 03/10/18 15:35 03/10/18 15:35 Microbiology 03/07/18 21:00 - Final Sputum, Expectorated Laboratory Results 03/09/18 03:38 03/09/18 03:30 03/09/18 03/10/18 03/11/18 05:59 05:59 05:59 Intake Total 1015 300 500 Output Total 475 1600 225 Balance 540 -1300 275 Laboratory Tests 03/10/18 03:42 NT-Pro-B Natriuret Pep 5050 H Chest x-ray: Slightly improved right lung infiltrate. Images reviewed by me. Physical Exam - Physical Exam General Appearance: alert, no apparent distress EENT: normal ENT inspection Neck: normal inspection Respiratory: decreased breath sounds, crackles (Right) Cardiac/Chest: regular rate, rhythm, No edema Abdomen: normal bowel sounds, non-tender Skin: normal color, warm/dry Extremities: normal inspection Neuro/Psych: alert, normal mood/affect, oriented x 3 ICD10 Worksheet Patient Problems: Problems Problem Status Onset Emphysema lung Acute Hypoxia Acute Interstitial edema Acute Non-traumatic compression fracture of T9 thoracic vertebra Acute Pneumothorax, right Acute Acute respiratory failure with hypoxia Acute Chronic Disease Mgmt/Transitional Care Acute Pneumonia Acute Sepsis Acute
[2018-03-10] MEDS: ASPIRIN 81 MG CHEWABLE TAB PO SCH (20:12)
[2018-03-10] MEDS: TAMSULOSIN HCL 0.4 MG CAP PO SCH (20:12)
[2018-03-10] MEDS: MELATONIN 3 MG TAB PO SCH (20:12)
[2018-03-10] MEDS ORDERED: LEVALBUTEROL 1.25 MG/3 ML DEYVIAL ONE (20:28)
[2018-03-11] MEDS: ACETYLCYSTEINE 20% IH/PO 4 ML VIAL IH SCH ×4 (05:42→19:57)
[2018-03-11] MEDS: LEVALBUTEROL 1.25 MG/3 ML DEYVIAL IH SCH ×4 (05:42→19:58)
[2018-03-11] MEDS: UBIDECARENONE 200 MG PO SCH (08:43)
[2018-03-11] MEDS: VSL#3 1 EACH CAP PO SCH ×3 (08:44→20:56)
[2018-03-11] MEDS: BALSALAZIDE DISODIUM 750 MG CAP PO SCH ×3 (08:44→20:56)
[2018-03-11] MEDS: LISINOPRIL 10 MG TAB PO SCH (08:45)
[2018-03-11] MEDS: guaiFENesin 600 MG TAB.ER PO SCH ×2 (08:45→20:58)
[2018-03-11] MEDS: ENOXAPARIN 40 MG/0.4 ML SYR SC SCH (08:49)
[2018-03-11] MEDS: predniSONE 20 MG TAB PO SCH (08:49)
[2018-03-11] MEDS: FUROSEMIDE 20 MG TAB PO SCH (08:50)
[2018-03-11] MEDS: FAMOTIDINE 20 MG TAB PO SCH (08:50)
[2018-03-11] MEDS: MULTIVITAMINS 1 EACH TAB PO SCH (08:50)
[2018-03-11] MEDS: FLUTICASONE/SALMETER 100/50MCG DISKUS IH SCH ×2 (10:42→19:54)
[2018-03-11] MEDS: Tiotropium Bromide [Spiriva Respimat] IH SCH (10:42)
--- NOTE | 2018-03-11 12:49 | HOSPPROG ---
Hospitalist Progress Note Assessment/Plan: * Acute on chronic respiratory failure - tough time weaning O2 to more reasonable levels -continue aggressive pulm hygiene * COPD exacerbation -steroids, nebs -azithromycin x 5 days complete * PTX - due to COPD bleb -chest tube removed * Possible pulmonary edema, possible diastolic CHF - EF 55% -BNP elevated -trial of lasix to see if sats improve * Recent PNA -s/p antibiotics - still with residual infiltrate on CXR/CT - unchanged * Cdiff -PO vanco complete * UC -balsalazide Subjective: No new complaints. Objective: Vital Signs Temp Pulse Resp BP Pulse Ox 36.7 C 113 H 20 134/80 H 95 03/11/18 12:24 03/11/18 12:24 03/11/18 12:24 03/11/18 12:24 03/11/18 12:24 Microbiology 03/07/18 21:00 - Final Sputum, Expectorated Laboratory Results 03/09/18 03:38 03/11/18 03:37 03/10/18 03/11/18 03/12/18 05:59 05:59 05:59 Intake Total 300 800 200 Output Total 1600 1275 Balance -1300 -475 200 CXR viewed, my personal interpretation is - bilateral infiltrates, large upper lobe bleb, Right infiltrate stable Old chart reviewed - had ECHO last month - EF 55%, + pulm HTN - Physical Exam Constitutional: no apparent distress, appears nourished, not in pain Cardiovascular: regular rate and rhythym, no murmur, rub, or gallop Respiratory: inspiratory crackles, respiratory distress, rhonchi, No expiratory wheeze Gastrointestinal: normoactive bowel sounds, soft, non-tender abdomen, no palpable masses Skin: no rashes or abrasions, no fluctuance, no induration Neurologic: AAOx3, sensation intact bilaterally Psychiatric: interacting appropriately, not anxious, not encephalopathic, thought process linear ICD10 Worksheet Patient Problems: Problems Problem Status Onset Hypoxia Acute Acute respiratory failure with hypoxia Acute Non-traumatic compression fracture of T9 thoracic vertebra Acute Pneumothorax, right Acute Emphysema lung Acute Interstitial edema Acute Chronic Disease Mgmt/Transitional Care Acute Sepsis Acute Pneumonia Acute
--- NOTE | 2018-03-11 14:57 | ASMTCMCOM ---
CM Note CM Note Notes: 03/11/2018 Case Management Note Faxed updates to [facility] in [place]. [facility] is following pt. Case Management d/c poc: [facility] SNF rehab Case Management to follow. Date Signed: 03/11/2018 02:56 PM Electronically Signed By:Florida Edwards RN
--- NOTE | 2018-03-11 16:53 | PDINTPN ---
Alcohol Law Enforcement Agent Progress Note Assessment/Plan: Assessment: 82 M with COPD and two recent hospital admissions for CAP, admitted with sudden onset CP and SOB. CXR revealed moderate PTX and a chest tube was placed. This helped but he complained the next morning of increasing dyspnea so solumedrol and Zithromax were added resulting in substantial improvement, though his O2 requirement remains high. * Spontaneous PTX- his chest CT shows severe large bullous emphysema, and his likely poor lung tissue was further compromised by his recent PNA, resulting in high risk for PTX. Chest tube removed 03/07 and now with symptoms. no PTX on CXR 03/08 * COPD with exacerbation This has improved with the addition of prednisone and PO azithromycin to complete a 5-day course. Continues to have significant hypoxemia with minimal exertion. Cough resolved. * hypoxemia- 2/2 both, titrate as tolerated to sat >90%. No evidence of chronic CO2 retention. Elevated BNP could be due to pulmonary hypertension, but also could be related to some mild fluid overload. * tachycardia- he has had periods of tachy-arrythmias of uncertain origin. 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 There are concerns by staff mechanical engineer about afib- urged staff to get 12-lead if possible. No direct rx for MAT (other than lungs). * C diff- started treatment at SNF and I believe completed therapy. remains on contact precautions. Plan: Continue Prednisone, Advair, Mucinex, Mucomyst. Continue low-dose p.o. Lasix. Check chest x-ray tomorrow. 03/10/18 16:31 03/11/18 16:52 Subjective: Feels better, with increased strength and decreased his dyspnea, although he still gets hypoxemic with minimal exertion. Denies cough. Objective: Vital Signs Temp Pulse Resp BP Pulse Ox 36.7 C 11 L 16 132/78 H 95 03/11/18 15:50 03/11/18 15:50 03/11/18 15:50 03/11/18 15:50 03/11/18 15:50 Microbiology 03/07/18 21:00 - Final Sputum, Expectorated Laboratory Results 03/09/18 03:38 03/11/18 03:37 03/10/18 03/11/18 03/12/18 05:59 05:59 05:59 Intake Total 300 800 200 Output Total 1600 1275 Balance -1300 -475 200 Physical Exam - Physical Exam General Appearance: alert, no apparent distress EENT: normal ENT inspection Neck: normal inspection Respiratory: decreased breath sounds, No crackles Cardiac/Chest: regular rate, rhythm, No edema Abdomen: normal bowel sounds, non-tender Skin: normal color, warm/dry Extremities: normal inspection Neuro/Psych: alert, normal mood/affect, oriented x 3 ICD10 Worksheet Patient Problems: Problems Problem Status Onset Emphysema lung Acute Hypoxia Acute Interstitial edema Acute Non-traumatic compression fracture of T9 thoracic vertebra Acute Pneumothorax, right Acute Acute respiratory failure with hypoxia Acute Chronic Disease Mgmt/Transitional Care Acute Pneumonia Acute Sepsis Acute
[2018-03-11] MEDS: TAMSULOSIN HCL 0.4 MG CAP PO SCH (20:57)
[2018-03-11] MEDS: ASPIRIN 81 MG CHEWABLE TAB PO SCH (20:57)
[2018-03-11] MEDS: MELATONIN 3 MG TAB PO SCH (20:58)
[2018-03-11] MEDS: LORazepam 0.5 MG TAB PO PRN (22:51)
[2018-03-12] MEDS: ACETAMINOPHEN 325 MG TAB PO PRN (01:39)
[2018-03-12] MEDS: ACETYLCYSTEINE 20% IH/PO 4 ML VIAL IH SCH ×4 (05:09→20:38)
[2018-03-12] MEDS: LEVALBUTEROL 1.25 MG/3 ML DEYVIAL IH SCH ×4 (05:09→20:38)
[2018-03-12] MEDS: guaiFENesin 600 MG TAB.ER PO SCH ×2 (09:24→21:31)
[2018-03-12] MEDS: BALSALAZIDE DISODIUM 750 MG CAP PO SCH ×3 (09:25→21:30)
[2018-03-12] MEDS: predniSONE 20 MG TAB PO SCH (09:26)
[2018-03-12] MEDS: FAMOTIDINE 20 MG TAB PO SCH (09:27)
[2018-03-12] MEDS: LISINOPRIL 10 MG TAB PO SCH (09:28)
[2018-03-12] MEDS: MULTIVITAMINS 1 EACH TAB PO SCH (09:31)
[2018-03-12] MEDS: ENOXAPARIN 40 MG/0.4 ML SYR SC SCH (09:32)
[2018-03-12] MEDS: FUROSEMIDE 20 MG TAB PO SCH (09:32)
[2018-03-12] MEDS: VSL#3 1 EACH CAP PO SCH ×3 (09:34→21:32)
[2018-03-12] MEDS: UBIDECARENONE 200 MG PO SCH (09:40)
[2018-03-12] MEDS: Tiotropium Bromide [Spiriva Respimat] IH SCH (10:29)
[2018-03-12] MEDS: FLUTICASONE/SALMETER 100/50MCG DISKUS IH SCH ×2 (10:29→20:39)
--- NOTE | 2018-03-12 10:40 | PDPCPN ---
Palliative Care Progress Note Assessment/Plan: Assessment: [facility] [address] [place] [id number] (O) [phone](F) PALLIATIVE CARE NOTE Name: Freeman Mendes Age: [age] year old Visit Type: Initial Palliative Visit Location: Home Date: 03/11/2018 Level of Care: Hospice watch DIAGNOSES: 1. Bacterial Pneumonia 2. COPD CC: Initial Palliative care visit today. Complains on continued cough. HPI: Patient is an 82 year old male, recently hospitalized at [facility] for Bacterial Pneumonia and Sepsis. He was initially admitted to [facility] on January 19, 2018 for Community Acquired Bacterial Pneumonia and Sepsis. He was discharged home with oxygen on January 20. He reports he was home for a few days when his oxygen stopped working. He was readmitted to the hospital on January 26 with increasing shortness of breath and weakness. He was once again treated with IV antibiotics and fluids. He discharged to [facility] rehab hospital in [place] on February 06, 2018. He recently returned home on February 24, 2018 on home oxygen, continued antibiotics and PT/OT/HH services. While in rehabilitation he developed C. difficile. He then developed a right upper lobe pneumonia and a spontaneous pneumothorax. He has since been readmitted to [facility]. His chest tube has been removed. His oxygen saturations have been in the low 90s on 5 L. He desaturates significantly with minimal activity. The plan is to discharge again to rehabilitation however they have limitations with regard to oxygen being above 5 L. No discharge date is set at this time. PMH: COPD, spinal stenosis, diastasis recti, ulcerative colitis, CKD 3, and HTN. Allergies: Sulfa- dizziness, Steroid myopathy, NSAIDS Family Hx: Mother- large cell thyroid cancer; Father- Stroke and KS. Social Hx: Was in the [employer] for 6 years in [place], Retired [employer] business [employer]- traveled extensively for work. Advance Directives: Full Code with selective treatment.He wishes to change this and will be working with his sister and disability attorney. MDPOA: Herminia Tucker- sister. Still need paperwork. Patient Goals of Care: 1. Stay out of the hospital 2. Breathe better, quit coughing ACTIVE SYMPTOMS/ASSESSMENTS/RECOMMENDATIONS 1. Cough- Patient was recently hospitalized twice for Community Acquired bacterial pneumonia. Went to [facility] for rehab. Discharged home on Vancomycin. He reports continued hacking, productive cough. Sputum is clear. He denies fever or chills. Currently taking Mucinex 1200 mg BID. Recommended to increase fluid intake to help thin secretions. 2. Bacterial Pneumonia- Patient recently hospitalized and then D/C to [facility]. Discharged home on Vancomycin tapering dose schedule. See med list for schedule. Patient denies fever or chills. Continue antibiotic as ordered.He now has been hospitalized again for a right upper lobe pneumonia which is resolving. 3. Shortness of breath- Patient reports occasional shortness of breath, mostly with exertion. He was discharged home on oxygen after first hospitalization. Currently using 5 L/min of O2. Continue to monitor and hopefully titrate to off. 4. Weight loss- Patient reports he weighed 165 lbs. one month ago before being hospitalized. Now his weight is 143 lbs. He reports he now has a good appetite and "eating like crazy." 5. Debility- Patient reports before hospitalization he has been using a 4 wheeled walker, ever since his spinal fusion last February. He currently has a walker on every level of his home so he doesn't need to carry them up and down stairs. 6. Prognosis: Months to years. 7. Hospice Eligibility: No: Does not meet criteria 8. Recommended Hospice Admitting Diagnosis: N/A MODIFIED [place] SYMPTOM ASSESSMENT SCALE 0-none; 1-3 mild; 4-6 moderate; 7-10 severe Unable to Respond: No Delirium: 0-none Depression: 0-none Anxiety: 0- none Tiredness (fatigue): 1-3 mild Drowsiness (sleepiness): 0-none Pain: 0-none Nausea: 0-none Anorexia: 0-none Shortness of Breath:5 Secretions: 7-10 severe Constipation: 0-none Symptom and side effect management: acceptable to patient and family. RISK FACTORS FOR ADMISSION AND READMISSION TO THE HOSPITAL: o NEEDS ASSISTANCE WITH ADL'S/FALL RISK- No o MEDICATION MANAGEMENT- No o SKILLED CARE NEEDED- No o LIVES ALONE- Yes o CAREGIVER ANXIETY- No o HISTORY OF NONCOMPLIANCE WITH MEDICATION- No o HOMELESSNESS- No o DIAGNOSIS OF COGNITIVE IMPAIRMENT- No o MENTAL HEALTH DISORDER (i.e. ANXIETY, DEPRESSION)- No o COMPROMISED FINANCIAL STATUS- No o NEEDS MEDICAL COVERAGE- No o NEEDS PRIMARY CARE PHYSICIAN- No o INADEQUATE SUPPORT SYSTEM- No o INADEQUATE TRANSPORTATION- No o >2 HOSPITALIZATIONS IN PAST 12 MONTHS- Yes o DISEASE EDUCATION DEFICIT- No OBJECTIVE FINDING Palliative Performance Score: 70 FAST: N/A NYHA: N/A Wt.: MAC: N/A Vitals: Respirations 20, Pulse ox 92% on 5 l/min O2. Neuro: A&O to person, place, time and event; Pleasant and cooperative, able to recite medical history. HEENT: Normocephalic; atraumatic. Mucous membranes pink, moist. No dysphagia. RESP: Regular, deep, symmetrical. Clear, diminished throughout with expiratory wheezing bilaterally. Strong productive cough with clear sputum. On oxygen at 5 L/min. CV: S1/S2, HR regular. Radial and pedal pulses 2+ bilaterally. 1+ LE edema. GI: Abdomen soft, round, non-tender to palpation. Bowel sounds present times 4. Continent. : Occasionally incontinent. Wears Depends due to having to take Flomax. MSK: Well nourished. Ambulatory with 4 wheeled walker. SKIN: dry, intact. Bruising noted to bilateral forearms. LAB Data: N/A Medications: Advance Care Planning he recently completed a most form for CPR with selective treatment. He states that he will be working with his sister and disability attorney to change this to full treatment for 7 days. PALLIATIVE SUMMARY: he has had several recent hospitalizations and rehabilitation stays. He has now been readmitted to [facility] for a right upper lobe pneumonia and a spontaneous pneumothorax. His chest tube has an removed. He is currently on 5 L of oxygen. He desaturates with minimal activity. The hope is that his oxygen requirements will continue to improve so that he can be discharged to rehabilitation again as they have limitations of 5 L of oxygen. We will continue to follow this patient for support, symptom management, and end-of-life discussions. PLAN: [employer]: follow-up after discharge. LPalliative Supportive Services: CN and SW to follow. Thank you for the opportunity to participate in the care of this patient. TIME SPENT: [id number] 35 minutes >50% of the time spent counseling, educating and coordinating the above topics. Dann Jiménez [facility] Plan: 03/12/18 10:39 Objective: Vital Signs Temp Pulse Resp BP Pulse Ox 36.7 C 106 H 26 H 113/69 106 H 03/12/18 09:17 03/12/18 10:25 03/12/18 10:25 03/12/18 09:17 03/12/18 10:25 Microbiology 03/07/18 21:00 - Final Sputum, Expectorated Sputum Culture - Final [facility] Laboratory Results 03/09/18 03:38 03/11/18 03:37 03/11/18 03/12/18 03/13/18 05:59 05:59 05:59 Intake Total 800 1650 Output Total 1275 1050 Balance -475 600 ICD10 Worksheet Patient Problems: Problems Problem Status Onset Emphysema lung Acute Hypoxia Acute Interstitial edema Acute Non-traumatic compression fracture of T9 thoracic vertebra Acute Pneumothorax, right Acute Acute respiratory failure with hypoxia Acute Chronic Disease Mgmt/Transitional Care Acute Pneumonia Acute Sepsis Acute
--- NOTE | 2018-03-12 12:17 | ASMTCMCOM ---
CM Note CM Note Notes: 03/12/2018 Case Management Note Met w/pt, son, family friend and sister to discuss d/c needs. [facility] has accepted pt but requires O2 use be below 8L. Informed pt. Discussed plans for after SNF rehab. Pt is considering 2 plans. Plan 1) return home with 24/7 care and resuming [facility]. Provided information on agencies that provide 24 hour care. Plan 2) move to [facility]. [facility] told pt oxygen needs are too high for assisted living. Pt will share a room in [facility] care. Discussed benefits of [facility]. Pt is pleased with care from [facility]. Case Management d/c poc: [facility] when O2 needs decrease. Case Management to follow. Date Signed: 03/12/2018 12:17 PM Electronically Signed By:Florida Edwards RN
--- NOTE | 2018-03-12 14:03 | HOSPPROG ---
Hospitalist Progress Note Assessment/Plan: 83-year-old with a history of pneumonia and respiratory failure is admitted with acute on chronic respiratory failure complicated by spontaneous pneumothorax due to bleb. First encounter, chart reviewed. Discussed his care w Dr Pimentel. Appreciate Palliative care seeing him. * Acute on chronic respiratory failure - tough time weaning O2 to more reasonable levels -continue aggressive pulm hygiene * COPD exacerbation -steroids, nebs -azithromycin x 5 days complete * PTX - due to COPD bleb -chest tube removed * Possible pulmonary edema, possible diastolic CHF - EF 55% -was given a dose of lasix, less oxygen when I evaluated him * Recent PNA -s/p antibiotics - still with residual infiltrate on CXR/CT - unchanged * Cdiff -PO vanco complete * UC -balsalazide *tachycardia -likely compensation from his O2 needs *Plan: will need to go to SNF. Huseyin and I had a talk about future plans; he realizes with his lung issues he can't live on his own. His sister is here to help him organize his things at home, sell his home and go to an AL. He is realistic he will be in a SNF for awhile. Subjective: Huseyin is worried about his lung issues and wants to stay independent. Objective: Vital Signs Temp Pulse Resp BP Pulse Ox 36.4 C 113 H 22 H 108/64 95 03/12/18 11:53 03/12/18 11:53 03/12/18 11:53 03/12/18 11:53 03/12/18 11:53 Microbiology 03/07/18 21:00 - Final Sputum, Expectorated Sputum Culture - Final [facility] Laboratory Results 03/09/18 03:38 03/11/18 03:37 03/11/18 03/12/18 03/13/18 05:59 05:59 05:59 Intake Total 800 1650 Output Total 1275 1050 300 Balance -475 600 -300 - Physical Exam Constitutional: not in pain, chronically ill appearing, other (thin) Eyes: PERRL Ears, Nose, Mouth, Throat: hearing normal Cardiovascular: regular rate and rhythym, tachycardia Respiratory: reduced air movement (throughout both lungs), No no respiratory distress (increase wob w talking) Skin: warm Musculoskeletal: generalized weakness Neurologic: AAOx3 Psychiatric: interacting appropriately ICD10 Worksheet Patient Problems: Problems Problem Status Onset Emphysema lung Acute Hypoxia Acute Interstitial edema Acute Non-traumatic compression fracture of T9 thoracic vertebra Acute Pneumothorax, right Acute Acute respiratory failure with hypoxia Acute Chronic Disease Mgmt/Transitional Care Acute Pneumonia Acute Sepsis Acute
--- NOTE | 2018-03-12 14:04 | PDINTPN ---
Discharge Specialist Progress Note Assessment/Plan: Assessment: 82 M with COPD and two recent hospital admissions for CAP, admitted with sudden onset CP and SOB. CXR revealed moderate PTX and a chest tube was placed. This helped but he complained the next morning of increasing dyspnea so solumedrol and Zithromax were added resulting in substantial improvement, though his O2 requirement remains high. * Spontaneous PTX- his chest CT shows severe large bullous emphysema, and his likely poor lung tissue was further compromised by his recent PNA, resulting in high risk for PTX. Chest tube removed 03/07 and now with symptoms. no PTX on subsequent CXRs * COPD with exacerbation This has improved with the addition of prednisone and PO azithromycin to complete a 5-day course. Cough resolved. Continues to have significant hypoxemia with minimal exertion. * hypoxemia- 2/2 both, titrate as tolerated to sat >90%. No evidence of chronic CO2 retention. Elevated BNP could be due to pulmonary hypertension, but also could be related to some mild fluid overload. * tachycardia- he has had periods of tachy-arrythmias of uncertain origin. 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 * C diff- started treatment at SNF and completed therapy. remains on contact precautions. Plan: Taper Prednisone, continue Advair, Mucinex, Mucomyst, low-dose p.o. Lasix. Transfer to [facility] once oxygen needs are acceptable. 03/12/18 14:02 03/12/18 14:04 Subjective: Feels a bit better. Minimal cough. Feels he can take a deeper breath. Has not done much activity yet today. Objective: Vital Signs Temp Pulse Resp BP Pulse Ox 36.4 C 113 H 22 H 108/64 95 03/12/18 11:53 03/12/18 11:53 03/12/18 11:53 03/12/18 11:53 03/12/18 11:53 Microbiology 03/07/18 21:00 - Final Sputum, Expectorated Sputum Culture - Final [facility] Laboratory Results 03/09/18 03:38 03/11/18 03:37 03/11/18 03/12/18 03/13/18 05:59 05:59 05:59 Intake Total 800 1650 Output Total 1275 1050 300 Balance -475 600 -300 Chest x-ray: Slight improvement in right upper lobe infiltrate. Images reviewed by me. Physical Exam - Physical Exam General Appearance: alert, no apparent distress EENT: pharynx normal Neck: normal inspection Respiratory: decreased breath sounds Cardiac/Chest: regular rate, rhythm, edema Abdomen: normal bowel sounds, non-tender Skin: normal color, warm/dry Extremities: normal inspection Neuro/Psych: alert, normal mood/affect, oriented x 3 ICD10 Worksheet Patient Problems: Problems Problem Status Onset Emphysema lung Acute Hypoxia Acute Interstitial edema Acute Non-traumatic compression fracture of T9 thoracic vertebra Acute Pneumothorax, right Acute Acute respiratory failure with hypoxia Acute Chronic Disease Mgmt/Transitional Care Acute Pneumonia Acute Sepsis Acute
[2018-03-12] MEDS: ASPIRIN 81 MG CHEWABLE TAB PO SCH (21:30)
[2018-03-12] MEDS: TAMSULOSIN HCL 0.4 MG CAP PO SCH (21:30)
[2018-03-12] MEDS: MELATONIN 3 MG TAB PO SCH (21:31)
[2018-03-12] MEDS: LORazepam 0.5 MG TAB PO PRN (22:55)
[2018-03-13] MEDS: ACETYLCYSTEINE 20% IH/PO 4 ML VIAL IH SCH ×4 (04:47→21:08)
[2018-03-13] MEDS: LEVALBUTEROL 1.25 MG/3 ML DEYVIAL IH SCH ×4 (04:47→21:08)
[2018-03-13] MEDS: Tiotropium Bromide [Spiriva Respimat] IH SCH (11:04)
[2018-03-13] MEDS: FLUTICASONE/SALMETER 100/50MCG DISKUS IH SCH ×2 (11:04→21:07)
[2018-03-13] MEDS: LISINOPRIL 10 MG TAB PO SCH (11:06)
[2018-03-13] MEDS: ENOXAPARIN 40 MG/0.4 ML SYR SC SCH (11:06)
[2018-03-13] MEDS: guaiFENesin 600 MG TAB.ER PO SCH ×2 (11:07→20:59)
[2018-03-13] MEDS: BALSALAZIDE DISODIUM 750 MG CAP PO SCH ×3 (11:07→21:02)
[2018-03-13] MEDS: MULTIVITAMINS 1 EACH TAB PO SCH (11:08)
[2018-03-13] MEDS: predniSONE 20 MG TAB PO SCH (11:08)
[2018-03-13] MEDS: FUROSEMIDE 20 MG TAB PO SCH (11:08)
[2018-03-13] MEDS: VSL#3 1 EACH CAP PO SCH ×3 (11:08→20:59)
[2018-03-13] MEDS: FAMOTIDINE 20 MG TAB PO SCH (11:14)
[2018-03-13] MEDS: UBIDECARENONE 200 MG PO SCH (11:15)
--- NOTE | 2018-03-13 16:14 | PDINTPN ---
Securities Adviser Progress Note Assessment/Plan: Assessment: 82 M with COPD and two recent hospital admissions for CAP, admitted with sudden onset CP and SOB. CXR revealed moderate PTX and a chest tube was placed. This helped but he complained the next morning of increasing dyspnea so solumedrol and Zithromax were added resulting in substantial improvement, though his O2 requirement remains high. * Spontaneous PTX- his chest CT shows severe large bullous emphysema, and his likely poor lung tissue was further compromised by his recent PNA, resulting in high risk for PTX. Chest tube removed 03/07 and now with symptoms. no PTX on subsequent CXRs * COPD with exacerbation This has improved with the addition of prednisone and PO azithromycin to complete a 5-day course. Cough resolved. Continues to have significant hypoxemia with minimal exertion. * hypoxemia- 2/2 both, titrate as tolerated to sat >90%. No evidence of chronic CO2 retention. Elevated BNP could be due to pulmonary hypertension, but also could be related to some mild fluid overload. * tachycardia- he has had periods of tachy-arrythmias of uncertain origin. 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 * C diff- started treatment at SNF and completed therapy. remains on contact precautions. Plan: Taper Prednisone, continue Advair, Mucinex, Mucomyst, low-dose p.o. Lasix. Recheck BNP. Transfer to SNF once oxygen needs are acceptable, although it is possible he may still have desaturations with exertion on 8 L/minute of oxygen. As long as he is not to symptomatic with these, it may still be appropriate to discharge rather than continuing to keep him hospitalized. 03/13/18 16:12 Subjective: A bit less dyspneic. Denies cough. Still has fairly limited strength/ endurance. Objective: Vital Signs Temp Pulse Resp BP Pulse Ox 36.4 C 114 H 20 100/84 H 90 L 03/13/18 15:16 03/13/18 15:16 03/13/18 15:16 03/13/18 15:16 03/13/18 15:16 Laboratory Results 03/09/18 03:38 03/11/18 03:37 03/12/18 03/13/18 03/14/18 05:59 05:59 05:59 Intake Total 1650 700 300 Output Total 1050 1150 650 Balance 600 -450 -350 Physical Exam - Physical Exam General Appearance: alert, no apparent distress EENT: normal ENT inspection Neck: normal inspection Respiratory: lungs clear, normal breath sounds, decreased breath sounds, No respiratory distress Cardiac/Chest: regular rate, rhythm, No edema Abdomen: non-tender, soft Skin: normal color, warm/dry Extremities: normal inspection Neuro/Psych: alert, normal mood/affect, oriented x 3 ICD10 Worksheet Patient Problems: Problems Problem Status Onset Emphysema lung Acute Hypoxia Acute Interstitial edema Acute Non-traumatic compression fracture of T9 thoracic vertebra Acute Pneumothorax, right Acute Acute respiratory failure with hypoxia Acute Chronic Disease Mgmt/Transitional Care Acute Pneumonia Acute Sepsis Acute
--- NOTE | 2018-03-13 16:25 | HOSPPROG ---
Hospitalist Progress Note Assessment/Plan: 83yo M with severe COPD, recent hospitalization for pneumonia and C diff colitis here with pneumothorax and respiratory failure. * Acute on chronic respiratory failure - slowly improving O2 needs (6-8L), secretions much better -wean O2 down as able -continue aggressive pulm hygiene, mucomyst, mucinex -continue low dose diuretic * COPD exacerbation -tapering steroids, s/p azithromycin -continue advair, spiriva, albuterol * Ventricular tachycardia - 15 beats noted on telemetry overnight 03/13, asymptomatic -check electrolytes, start low dose metop, keep on tele -would discuss [facility]ology in AM * PTX - due to COPD bleb -chest tube removed * Recent PNA -s/p antibiotics - still with residual infiltrate on CXR/CT - unchanged * Cdiff -PO vanco completed * UC -balsalazide VTE ppx: LMWH Code: full Dispo: Remain inpatient. Very slowly improving. Should dc to SNF in coming few days. Subjective: Overall he feels improved. Showered this AM. Got up to chair a few times. Breathing still significantly labored with movement. This is my first encounter with this patient since Friday. Objective: Vital Signs Temp Pulse Resp BP Pulse Ox 36.4 C 114 H 20 100/84 H 90 L 03/13/18 15:16 03/13/18 15:16 03/13/18 15:16 03/13/18 15:16 03/13/18 15:16 Laboratory Results 03/09/18 03:38 03/11/18 03:37 03/12/18 03/13/18 03/14/18 05:59 05:59 05:59 Intake Total 1650 700 300 Output Total 1050 1150 650 Balance 600 -450 -350 - Physical Exam Constitutional: no apparent distress, appears nourished, not in pain Eyes: PERRL, anicteric sclera, EOMI Ears, Nose, Mouth, Throat: moist mucous membranes, hearing normal, ears appear normal, no oral mucosal ulcers Cardiovascular: no murmur, rub, or gallop, tachycardia, No edema Respiratory: no respiratory distress, reduced air movement, rhonchi (right base) Gastrointestinal: normoactive bowel sounds, soft, non-tender abdomen, no palpable masses Genitourinary: no bladder fullness, no bladder tenderness, no renal bruits Skin: no rashes or abrasions, no fluctuance, no induration Musculoskeletal: full muscle strength, no muscle tenderness, normal joint ROM Neurologic: AAOx3, sensation intact bilaterally Psychiatric: interacting appropriately, not anxious, not encephalopathic, thought process linear ICD10 Worksheet Patient Problems: Problems Problem Status Onset Emphysema lung Acute Hypoxia Acute Interstitial edema Acute Non-traumatic compression fracture of T9 thoracic vertebra Acute Pneumothorax, right Acute Acute respiratory failure with hypoxia Acute Chronic Disease Mgmt/Transitional Care Acute Pneumonia Acute Sepsis Acute
[2018-03-13] MEDS: METOPROLOL TARTRATE 25 MG TAB PO SCH (21:01)
[2018-03-13] MEDS: ASPIRIN 81 MG CHEWABLE TAB PO SCH (21:01)
[2018-03-13] MEDS: MELATONIN 3 MG TAB PO SCH (21:01)
[2018-03-13] MEDS: TAMSULOSIN HCL 0.4 MG CAP PO SCH (21:01)
[2018-03-13] MEDS: LORazepam 0.5 MG TAB PO PRN (22:28)
[2018-03-14] MEDS: ACETYLCYSTEINE 20% IH/PO 4 ML VIAL IH SCH ×4 (06:23→21:54)
[2018-03-14] MEDS: LEVALBUTEROL 1.25 MG/3 ML DEYVIAL IH SCH ×4 (06:23→21:54)
[2018-03-14] MEDS: FUROSEMIDE 20 MG TAB PO SCH (08:38)
[2018-03-14] MEDS: BALSALAZIDE DISODIUM 750 MG CAP PO SCH ×3 (08:38→21:13)
[2018-03-14] MEDS: FAMOTIDINE 20 MG TAB PO SCH (08:38)
[2018-03-14] MEDS: ENOXAPARIN 40 MG/0.4 ML SYR SC SCH (08:38)
[2018-03-14] MEDS: predniSONE 20 MG TAB PO SCH (08:38)
[2018-03-14] MEDS: guaiFENesin 600 MG TAB.ER PO SCH ×2 (08:39→21:13)
[2018-03-14] MEDS: LISINOPRIL 10 MG TAB PO SCH (08:39)
[2018-03-14] MEDS: METOPROLOL TARTRATE 25 MG TAB PO SCH ×2 (08:39→21:13)
[2018-03-14] MEDS: MULTIVITAMINS 1 EACH TAB PO SCH (08:39)
[2018-03-14] MEDS: VSL#3 1 EACH CAP PO SCH ×3 (08:40→21:13)
[2018-03-14] MEDS: UBIDECARENONE 200 MG PO SCH (08:40)
[2018-03-14] MEDS: Tiotropium Bromide [Spiriva Respimat] IH SCH (08:44)
[2018-03-14] MEDS: FLUTICASONE/SALMETER 100/50MCG DISKUS IH SCH ×2 (08:45→21:55)
--- NOTE | 2018-03-14 09:21 | HOSPPROG ---
Hospitalist Progress Note Assessment/Plan: 83yo M with severe COPD, recent hospitalization for pneumonia and C diff colitis here with pneumothorax and respiratory failure. * Acute on chronic respiratory failure - slowly improving O2 needs (6L at rest , 8L with activity), secretions much better -wean O2 as able -continue aggressive pulm hygiene, mucomyst, mucinex -continue low dose diuretic * COPD exacerbation -tapering steroids, s/p azithromycin -continue advair, spiriva, albuterol * Ventricular tachycardia - 15 beats noted on telemetry overnight 03/13, asymptomatic, no recurrence overnight -cont BB -keep K>4, Mg>2 * PTX - due to COPD bleb -chest tube removed * Recent PNA -s/p antibiotics - still with residual infiltrate on CXR/CT - unchanged * Cdiff -PO vanco completed * UC -balsalazide VTE ppx: LMWH Code: full Dispo: Remain inpatient. Very slowly improving. Should dc to SNF in 1-2 days. Subjective: Pt feeling a little better each day. Still some cough and SOB, though improved. No CP. No fevers. Feels weak. Objective: Vital Signs Temp Pulse Resp BP Pulse Ox 36.4 C 83 20 140/87 H 94 03/14/18 08:34 03/14/18 08:39 03/14/18 08:34 03/14/18 08:39 03/14/18 08:34 Laboratory Results 03/09/18 03:38 03/13/18 17:18 03/13/18 03/14/18 03/15/18 05:59 05:59 05:59 Intake Total 700 600 Output Total 1150 1075 Balance -450 -475 - Physical Exam Constitutional: no apparent distress Eyes: PERRL Ears, Nose, Mouth, Throat: moist mucous membranes Cardiovascular: regular rate and rhythym Respiratory: no respiratory distress, reduced air movement, other (RLL crackles) Gastrointestinal: normoactive bowel sounds, soft, non-tender abdomen Skin: warm Musculoskeletal: full muscle strength Neurologic: AAOx3 Psychiatric: interacting appropriately ICD10 Worksheet Patient Problems: Problems Problem Status Onset Emphysema lung Acute Hypoxia Acute Interstitial edema Acute Non-traumatic compression fracture of T9 thoracic vertebra Acute Pneumothorax, right Acute Acute respiratory failure with hypoxia Acute Chronic Disease Mgmt/Transitional Care Acute Pneumonia Acute Sepsis Acute
--- NOTE | 2018-03-14 13:30 | ASMTCMCOM ---
CM Note CM Note Notes: Discussed w hospitalist: patient will be ready for discharge in 1-2 days. Called [facility], [facility], and [facility] to provide updates. Plan is for d/c [facility] with [facility] following. Date Signed: 03/14/2018 01:29 PM Electronically Signed By:Elena Tan RN
--- NOTE | 2018-03-14 15:02 | PDINTPN ---
It Training Specialist Progress Note Assessment/Plan: Assessment: 82 M with COPD and two recent hospital admissions for CAP, admitted with sudden onset CP and SOB. CXR revealed moderate PTX and a chest tube was placed. This helped but he complained the next morning of increasing dyspnea so solumedrol and Zithromax were added resulting in substantial improvement, though his O2 requirement remains high. * Spontaneous PTX- his chest CT shows severe large bullous emphysema, and his likely poor lung tissue was further compromised by his recent PNA, resulting in high risk for PTX. Chest tube removed 03/07 and now with symptoms. no PTX on subsequent CXRs * COPD with exacerbation This has improved with the addition of prednisone and PO azithromycin to complete a 5-day course. Cough resolved. Continues to have significant hypoxemia with minimal exertion. * hypoxemia- 2/2 both, titrate as tolerated to sat >90%. No evidence of chronic CO2 retention. Elevated BNP could be due to pulmonary hypertension, but also could be related to some mild fluid overload. Has diuresed about 1.5 L. BUN up a bit * tachycardia- Resolved * C diff- started treatment at SNF and completed therapy. Remains on contact precautions. Plan: Taper Prednisone, continue Advair, Mucinex, Mucomyst, low-dose p.o. Lasix. Recheck BNP. Transfer to SNF once oxygen needs are acceptable, although it is possible he may still have desaturations with exertion on 8 L/minute of oxygen. As long as he is not to symptomatic with these, it may still be appropriate to discharge rather than continuing to keep him hospitalized. 03/14/18 15:02 Subjective: Had some productive cough last night/this morning, now resolved. Still gets dyspneic/hypoxemic with exertion, but is comfortable at rest. Objective: Vital Signs Temp Pulse Resp BP Pulse Ox 35.8 C L 86 19 120/73 93 03/14/18 12:00 03/14/18 12:00 03/14/18 12:00 03/14/18 12:00 03/14/18 12:00 Laboratory Results 03/09/18 03:38 03/13/18 17:18 03/13/18 03/14/18 03/15/18 05:59 05:59 05:59 Intake Total 700 600 Output Total 1150 1075 600 Balance -450 -475 -600 Physical Exam - Physical Exam General Appearance: alert, no apparent distress EENT: normal ENT inspection Neck: normal inspection Respiratory: lungs clear, normal breath sounds Cardiac/Chest: regular rate, rhythm, No edema Abdomen: normal bowel sounds, non-tender Skin: warm/dry Extremities: normal inspection Neuro/Psych: alert, normal mood/affect ICD10 Worksheet Patient Problems: Problems Problem Status Onset Emphysema lung Acute Hypoxia Acute Interstitial edema Acute Non-traumatic compression fracture of T9 thoracic vertebra Acute Pneumothorax, right Acute Acute respiratory failure with hypoxia Acute Chronic Disease Mgmt/Transitional Care Acute Pneumonia Acute Sepsis Acute
[2018-03-14] MEDS: TAMSULOSIN HCL 0.4 MG CAP PO SCH (21:13)
[2018-03-14] MEDS: MELATONIN 3 MG TAB PO SCH (21:13)
[2018-03-14] MEDS: ASPIRIN 81 MG CHEWABLE TAB PO SCH (21:14)
[2018-03-14] MEDS: LORazepam 0.5 MG TAB PO PRN (22:18)
[2018-03-15] MEDS: LEVALBUTEROL 1.25 MG/3 ML DEYVIAL IH SCH ×4 (06:03→21:33)
[2018-03-15] MEDS: ACETYLCYSTEINE 20% IH/PO 4 ML VIAL IH SCH (06:03)
[2018-03-15] MEDS: BALSALAZIDE DISODIUM 750 MG CAP PO SCH ×3 (08:05→21:22)
[2018-03-15] MEDS: ENOXAPARIN 40 MG/0.4 ML SYR SC SCH (08:05)
[2018-03-15] MEDS: guaiFENesin 600 MG TAB.ER PO SCH ×2 (08:05→21:22)
[2018-03-15] MEDS: predniSONE 20 MG TAB PO SCH (08:05)
[2018-03-15] MEDS: FAMOTIDINE 20 MG TAB PO SCH (08:05)
[2018-03-15] MEDS: LISINOPRIL 10 MG TAB PO SCH (08:05)
[2018-03-15] MEDS: METOPROLOL TARTRATE 25 MG TAB PO SCH ×2 (08:05→21:21)
[2018-03-15] MEDS: MULTIVITAMINS 1 EACH TAB PO SCH (08:05)
[2018-03-15] MEDS: VSL#3 1 EACH CAP PO SCH ×3 (08:06→21:22)
[2018-03-15] MEDS: UBIDECARENONE 200 MG PO SCH (08:54)
--- NOTE | 2018-03-15 09:42 | HOSPPROG ---
Hospitalist Progress Note Assessment/Plan: 83yo M with severe COPD, recent hospitalization for pneumonia and C diff colitis here with pneumothorax and respiratory failure. * Acute on chronic respiratory failure - 2/2 COPD with bullous emphysema and bleb rupture, required chest tube, which is since removed. Slowly improving O2 needs (4L at rest, up to 8L with activity), secretions much better. Desatted last night with slow recovery. -cont to wean O2 as able -continue aggressive pulm hygiene, mucinex -d/c lasix noting normalized bnp (5K --> 240) and rising BUN * COPD exacerbation -cont tapering steroids, s/p azithromycin -continue advair, spiriva, xopenex -dc mucomyst, s/p 7 days of tx * Ventricular tachycardia - 12 beats noted on 03/13, asymptomatic, no recurrence. 01/2018 echo reviewed: EF 55%, grade 1 schultz dysfxn, RVSP 55, no significant valve disease -cont BB -keep K>4, Mg>2 * PTX - due to COPD bleb -chest tube removed * Recent PNA -s/p antibiotics - still with residual infiltrate on CXR/CT - unchanged * Cdiff -PO vanco completed * UC -balsalazide VTE ppx: LMWH Code: full Dispo: Remain inpatient. Very slowly improving. DC to SNF in 1-2 days. Subjective: Pt reportedly desatted last night to low 80s, took some time to recover, up to 10 LPM. Now back to 4-5 LPM. Overall, feels he is slowly improving. No fevers/chills. No CP or SOB at rest, but dyspneic with activity. Poor activity tolerance. Objective: Vital Signs Temp Pulse Resp BP Pulse Ox 36.3 C 73 18 137/77 H 92 03/15/18 08:02 03/15/18 08:05 03/15/18 08:02 03/15/18 08:05 03/15/18 08:02 Laboratory Results 03/09/18 03:38 03/15/18 03:51 03/14/18 03/15/18 03/16/18 05:59 05:59 05:59 Intake Total 600 940 Output Total 1075 1350 200 Balance -475 -410 -200 - Physical Exam Constitutional: no apparent distress Eyes: PERRL Ears, Nose, Mouth, Throat: moist mucous membranes Cardiovascular: regular rate and rhythym Respiratory: no respiratory distress, clear to auscultation Gastrointestinal: normoactive bowel sounds, soft, non-tender abdomen Skin: warm Musculoskeletal: full muscle strength Neurologic: AAOx3 Psychiatric: interacting appropriately ICD10 Worksheet Patient Problems: Problems Problem Status Onset Emphysema lung Acute Hypoxia Acute Interstitial edema Acute Non-traumatic compression fracture of T9 thoracic vertebra Acute Pneumothorax, right Acute Acute respiratory failure with hypoxia Acute Chronic Disease Mgmt/Transitional Care Acute Pneumonia Acute Sepsis Acute
[2018-03-15] MEDS: Tiotropium Bromide [Spiriva Respimat] IH SCH (10:06)
[2018-03-15] MEDS: FLUTICASONE/SALMETER 100/50MCG DISKUS IH SCH ×2 (10:06→21:33)
--- NOTE | 2018-03-15 14:48 | PDINTPN ---
Intervention Teacher Progress Note Assessment/Plan: Assessment: 82 M with COPD and two recent hospital admissions for CAP, admitted with sudden onset CP and SOB. CXR revealed moderate PTX and a chest tube was placed. This helped but he complained the next morning of increasing dyspnea so solumedrol and Zithromax were added resulting in substantial improvement, though his O2 requirement remains high. * Spontaneous PTX- his chest CT shows severe large bullous emphysema, and his likely poor lung tissue was further compromised by his recent PNA, resulting in high risk for PTX. Chest tube removed 03/07 and now with symptoms. No PTX on subsequent CXRs * COPD with exacerbation: This has improved with the addition of prednisone and PO azithromycin to complete a 5-day course. Cough resolved. Continues to have significant hypoxemia with minimal exertion. Oxygen flow down to 4 L/minute when at rest. * hypoxemia- 2/2 both, titrate as tolerated to sat >90%. No evidence of chronic CO2 retention. Elevated BNP could be due to pulmonary hypertension, but also could be related to some mild fluid overload. Has diuresed about 1.5 L and BNP has normalized, BUN up a bit. * tachycardia- Resolved * C diff- started treatment at SNF and completed therapy. Remains on contact precautions. Plan: Taper Prednisone (would give 10 mg daily for 3-5 days starting 03/17), continue Advair, Mucinex. Stop Lasix. Stop Mucomyst when transferred Recheck chest x-ray. Transfer to SNF once oxygen needs are acceptable (must be less than 8 L/minute) , although it is possible he may still have desaturations with exertion on 7 L/ minute of oxygen. As long as he is not to symptomatic with these, I think it is appropriate to discharge rather than continuing to keep him hospitalized. I would aim for transfer Friday or Friday. 03/15/18 14:46 Subjective: Feels a bit better, strength improved. Objective: Vital Signs Temp Pulse Resp BP Pulse Ox 36.8 C 82 20 144/82 H 94 03/15/18 13:42 03/15/18 13:42 03/15/18 13:42 03/15/18 13:42 03/15/18 13:42 Laboratory Results 03/09/18 03:38 03/15/18 03:51 03/14/18 03/15/18 03/16/18 05:59 05:59 05:59 Intake Total 600 940 400 Output Total 1075 1350 400 Balance -475 -410 0 Laboratory Tests 03/15/18 03:51 NT-Pro-B Natriuret Pep 241 Physical Exam - Physical Exam General Appearance: alert, no apparent distress EENT: normal ENT inspection Neck: normal inspection Respiratory: lungs clear, normal breath sounds Cardiac/Chest: regular rate, rhythm, No edema Abdomen: normal bowel sounds, non-tender Skin: normal color, warm/dry Extremities: normal inspection Neuro/Psych: alert, normal mood/affect, oriented x 3 ICD10 Worksheet Patient Problems: Problems Problem Status Onset Emphysema lung Acute Hypoxia Acute Interstitial edema Acute Non-traumatic compression fracture of T9 thoracic vertebra Acute Pneumothorax, right Acute Acute respiratory failure with hypoxia Acute Chronic Disease Mgmt/Transitional Care Acute Pneumonia Acute Sepsis Acute
[2018-03-15] MEDS: FLUTICASONE NASAL 120 SPRAYS/16 GM MDI EACHNARE SCH (16:04)
[2018-03-15] MEDS: ASPIRIN 81 MG CHEWABLE TAB PO SCH (21:21)
[2018-03-15] MEDS: TAMSULOSIN HCL 0.4 MG CAP PO SCH (21:21)
[2018-03-15] MEDS: LORazepam 0.5 MG TAB PO PRN (21:22)
[2018-03-15] MEDS: MELATONIN 3 MG TAB PO SCH (21:22)
[2018-03-16] MEDS: LORazepam 0.5 MG TAB PO PRN ×2 (03:11→21:13)
[2018-03-16] MEDS: LEVALBUTEROL 1.25 MG/3 ML DEYVIAL IH SCH ×4 (06:09→22:52)
[2018-03-16] MEDS: LISINOPRIL 10 MG TAB PO SCH (08:17)
[2018-03-16] MEDS: MULTIVITAMINS 1 EACH TAB PO SCH (08:17)
[2018-03-16] MEDS: BALSALAZIDE DISODIUM 750 MG CAP PO SCH ×3 (08:17→21:16)
[2018-03-16] MEDS: METOPROLOL TARTRATE 25 MG TAB PO SCH ×2 (08:17→21:04)
[2018-03-16] MEDS: ENOXAPARIN 40 MG/0.4 ML SYR SC SCH (08:17)
[2018-03-16] MEDS: guaiFENesin 600 MG TAB.ER PO SCH ×2 (08:18→21:03)
[2018-03-16] MEDS: FAMOTIDINE 20 MG TAB PO SCH (08:18)
[2018-03-16] MEDS: predniSONE 20 MG TAB PO SCH (08:18)
[2018-03-16] MEDS: FLUTICASONE NASAL 120 SPRAYS/16 GM MDI EACHNARE SCH (08:20)
[2018-03-16] MEDS: UBIDECARENONE 200 MG PO SCH (08:20)
[2018-03-16] MEDS: VSL#3 1 EACH CAP PO SCH ×3 (08:41→21:13)
[2018-03-16] MEDS: FLUTICASONE/SALMETER 100/50MCG DISKUS IH SCH ×2 (09:52→22:53)
[2018-03-16] MEDS: Tiotropium Bromide [Spiriva Respimat] IH SCH (09:53)
[2018-03-16] MEDS ORDERED: METOPROLOL TARTRATE 25 MG TAB PO ONE (12:00)
--- NOTE | 2018-03-16 14:58 | HOSPPROG ---
Hospitalist Progress Note Assessment/Plan: 83yo M with severe COPD, recent hospitalization for pneumonia and C diff colitis here with pneumothorax and respiratory failure. * Acute on chronic respiratory failure - stable O2 (4L rest, up to 8L w/ exertion), secretions a bit worse today -wean O2 down as able -continue aggressive pulm hygiene, mucinex. S/p course of mucomyst -stopped lasix with normalization of BNP * COPD exacerbation -tapering steroids, s/p azithromycin -continue advair, spiriva, albuterol * Ventricular tachycardia - 15 beat run overnight 03/13, significant burden of PVCs last 48 hours, asymptomatic -increase metoprolol, recheck electrolytes tomorrow * PTX - due to COPD bleb -chest tube removed * Recent PNA -s/p antibiotics - still with residual infiltrate on CXR/CT - unchanged * Cdiff -PO vanco completed * UC -balsalazide VTE ppx: LMWH Code: full Dispo: Remain inpatient. Should discharge to SNF tomorrow if O2 needs stable. Subjective: Had rough night. More secretions/mucous today. Doesn't feel like today will be a good day to transfer. O2 needs good at rest (3-4L). Had to increase to 8L when went down for cxr. Objective: Vital Signs Temp Pulse Resp BP Pulse Ox 36.5 C 79 18 139/86 H 93 03/16/18 11:43 03/16/18 11:43 03/16/18 11:43 03/16/18 11:43 03/16/18 13:35 Laboratory Results 03/09/18 03:38 03/16/18 03:10 03/15/18 03/16/18 03/17/18 05:59 05:59 05:59 Intake Total 940 1000 275 Output Total 1350 1200 325 Balance -410 -200 -50 - Physical Exam Constitutional: no apparent distress, appears nourished, not in pain Eyes: PERRL, anicteric sclera, EOMI Ears, Nose, Mouth, Throat: moist mucous membranes, hearing normal, ears appear normal, no oral mucosal ulcers Cardiovascular: no murmur, rub, or gallop, tachycardia, No JVD, No edema Respiratory: no respiratory distress, rhonchi (right base (stable)), No expiratory wheeze, No inspiratory crackles Gastrointestinal: normoactive bowel sounds, soft, non-tender abdomen, no palpable masses Genitourinary: no bladder fullness, no bladder tenderness, no renal bruits Skin: no rashes or abrasions, no fluctuance, no induration Musculoskeletal: full muscle strength, no muscle tenderness, normal joint ROM Neurologic: AAOx3, sensation intact bilaterally Psychiatric: interacting appropriately, not anxious, not encephalopathic, thought process linear ICD10 Worksheet Patient Problems: Problems Problem Status Onset Emphysema lung Acute Hypoxia Acute Interstitial edema Acute Non-traumatic compression fracture of T9 thoracic vertebra Acute Pneumothorax, right Acute Acute respiratory failure with hypoxia Acute Chronic Disease Mgmt/Transitional Care Acute Pneumonia Acute Sepsis Acute
--- NOTE | 2018-03-16 17:40 | SOAPPROG ---
SOAP Progress Note Assessment/Plan: Assessment: 82 M with COPD and two recent hospital admissions for CAP, admitted with sudden onset CP and SOB. CXR revealed moderate PTX and a chest tube was placed. This helped but he complained the next morning of increasing dyspnea so solumedrol and Zithromax were added resulting in substantial improvement. Oxygen requirements have improved. * Spontaneous PTX- his chest CT shows severe large bullous emphysema, and his likely poor lung tissue was further compromised by his recent PNA, resulting in high risk for PTX. Chest tube removed 03/07. No sig PTX on subsequent CXRs, including today. * COPD with exacerbation: This has improved with the addition of prednisone and PO azithromycin to complete a 5-day course. Cough resolved. Continues to have hypoxemia with exertion. Oxygen flow down to 4 L/minute when at rest. * Hypoxemia- 2/2 COPD/emphysema. Oxygen being titrated to sat >88%. No evidence of chronic CO2 retention. Elevated BNP likely due to pulmonary hypertension, but also could be related to some mild fluid overload. Has diuresed about 1.5 L and BNP has normalized, BUN up a bit. * Tachycardia- Resolved * C diff- started treatment at SNF and completed therapy. Remains on contact precautions. Plan: Continue to taper Prednisone slowly, continue bronchopulmonary therapies , Advair, Mucinex. Stop Mucomyst when transferred Transfer to SNF tomorrow. Arrangements in place. Follow-up with myself or Dr. Pimentel as an outpatient. Subjective: Overall feels better. Remains short of breath, on high-flow oxygen. Tired today. Objective: Vital Signs Temp Pulse Resp BP Pulse Ox 36.6 C 95 18 117/72 95 03/16/18 15:26 03/16/18 17:26 03/16/18 17:26 03/16/18 15:26 03/16/18 17:26 Laboratory Results 03/09/18 03:38 03/16/18 03:10 03/15/18 03/16/18 03/17/18 05:59 05:59 05:59 Intake Total 940 1000 275 Output Total 1350 1200 325 Balance -410 -200 -50 CXR: No obvious pneumothorax. May be a small 1 at the apex verses a bolus area. Area of infiltrate or more likely scar in the right mid lung field persists. Much better compared to his x-rays going back to January which showed a large dense infiltrate in this area and above. Physical Exam - Physical Exam General Appearance: alert, no apparent distress, thin EENT: other (Oxygen in place) Neck: normal inspection (No JVD) Respiratory: decreased breath sounds, rales (Present the bases bilaterally, more prominent on the left compared to the right.), No rhonchi, No pleural rub Cardiac/Chest: regular rate, rhythm Abdomen: normal bowel sounds, non-tender, soft Skin: normal color, warm/dry Extremities: No pedal edema Neuro/Psych: no motor/sensory deficits, No cognition abnormalities ICD10 Worksheet Patient Problems: Problems Problem Status Onset Hypoxia Acute Acute respiratory failure with hypoxia Acute Non-traumatic compression fracture of T9 thoracic vertebra Acute Pneumothorax, right Acute Emphysema lung Acute Interstitial edema Acute Chronic Disease Mgmt/Transitional Care Acute Sepsis Acute Pneumonia Acute
[2018-03-16] MEDS: TAMSULOSIN HCL 0.4 MG CAP PO SCH (21:03)
[2018-03-16] MEDS: ASPIRIN 81 MG CHEWABLE TAB PO SCH (21:03)
[2018-03-16] MEDS: MELATONIN 3 MG TAB PO SCH (21:04)
[2018-03-17] MEDS: LEVALBUTEROL 1.25 MG/3 ML DEYVIAL IH SCH ×2 (05:52→11:35)
[2018-03-17] MEDS: BALSALAZIDE DISODIUM 750 MG CAP PO SCH (08:05)
[2018-03-17] MEDS: guaiFENesin 600 MG TAB.ER PO SCH (08:06)
[2018-03-17] MEDS: LISINOPRIL 10 MG TAB PO SCH (08:06)
[2018-03-17] MEDS: MULTIVITAMINS 1 EACH TAB PO SCH (08:06)
[2018-03-17] MEDS: METOPROLOL TARTRATE 25 MG TAB PO SCH (08:06)
[2018-03-17] MEDS: FAMOTIDINE 20 MG TAB PO SCH (08:06)
[2018-03-17] MEDS: predniSONE 20 MG TAB PO SCH (08:06)
[2018-03-17] MEDS: ENOXAPARIN 40 MG/0.4 ML SYR SC SCH (08:06)
[2018-03-17] MEDS: VSL#3 1 EACH CAP PO SCH ×2 (08:07→10:57)
[2018-03-17] MEDS: UBIDECARENONE 200 MG PO SCH (08:07)
[2018-03-17] MEDS: FLUTICASONE NASAL 120 SPRAYS/16 GM MDI EACHNARE SCH (08:07)
[2018-03-17 11:22] VITALS: BP 118/71
[2018-03-17] MEDS: Tiotropium Bromide [Spiriva Respimat] IH SCH (11:35)
[2018-03-17] MEDS: FLUTICASONE/SALMETER 100/50MCG DISKUS IH SCH (11:36)
--- NOTE | 2018-03-17 11:56 | PDIAF ---
- Diagnosis Code Status: Full Code - Medication Management Jail Antibiotics: None Discharge Medications: electronically signed and located in the Home Medication List. - Orders Services needed: Physical Therapy, Occupational Therapy Isolation Type: CDIFF Isolation Oxygen: 4 L/min at rest, 7 L/min with exertion Diet Texture: Regular Texture Diet, Thin Liquids, Meds Whole w/Liquids, Meds Whole in Puree [place]: Not applicable Additional Instructions: Here are your discharge instructions: 1. Continue your advair, spiriva, mucinex, and levalbuterol nebulizer (every 6 hours). 2. We are slowly tapering your prednisone. You should take 10mg daily for 5 more days starting 03/18. 3. You will need to follow up with Dr Gwyn Pimentel (pulmonology) in 2-3 weeks. 4. We have added on metoprolol to make sure your heart doesn't skip beats. 5. You have completed antibiotic therapy for your C diff colitis. 6. You can continue to use a suction device to help remove mucous from your oral cavity. 7. You have been requiring 4 L/min of oxygen at rest and up to 7 L/min with exertion. Your oxygen levels may go low when you exert yourself; this is ok as long as they come up within a few minutes. - Follow Up Care Current Providers and Referrals: Rubens Gallegos DO [Primary Care Provider] - Emanuel Pimentel MD [Medical Doctor] - (2-3 weeks after hospital discharge)
--- NOTE | 2018-03-17 12:02 | PDDCSUM ---
Discharge Summary Discharge Summary: Date of Admission: 03/02/2018 Date of Discharge: 03/17/2018 Procedures: 1. Right chest tube placement Studies: 1. CTA chest: no PE, new moderate sized right pneumothorax, improving RUL pneumonia, new RLL infiltrate, mild interstitial edema Consultants: pulmonology, surgery (for chest tube) Disposition: discharged to [facility] Discharge Diagnoses: 1. Spontaneous right sided pneumothorax 2. Acute COPD exacerbation 3. Acute on chronic hypoxemic respiratory failure 4. H/o recent pneumonia 5. C diff colitis s/p antibiotic therapy 6. Non-sustained ventricular tachycardia 7. Ulcerative colitis on balsalazide 8. Anemia, chronic Brief Hospital Course: 83yo M with severe COPD and two recent hospitalizations for community acquired pneumonia presented with sudden onset chest pain and dyspnea on 03/02. CXR revealed moderate right PTX and a chest tube was placed. Etiology of PTX likely due to large bullous emphysema. Chest tube removed 03/07. He was noted to have symptoms of an acute exacerbation of COPD as well and was treated with azithromycin, bronchodilators, and prolonged prednisone taper. He was also gently diuresed (elevated BNP that resolved). His oxygen requirements have stabilized over the last 5-7 days however he still has some hypoxemia with minimal exertion. He is requiring 4L NC at rest and up to 7L NC with exertion. He will continue scheduled albuterol, spiriva, and advair. He will [facility] up with [facility] outpatient palliative care support. Medications: Please refer to EMR for complete list. Follow Up Plan: 1. Slow prednisone taper, continue 10mg for 5 more days 2. Follow up with Dr Pimentel in pulmonology clinic in 2-3 weeks 3. Continue discussions re: code status, currently full code Physical Exam: Vitals reviewed, normotensive with acceptable O2 saturations. Alert and oriented, thin appearing. RRR without murmur. Improving rhonchi at bilateral bases, no wheezing or dullness to percussion. Abdomen soft and nontender. No leg edema or JVD.
--- NOTE | 2018-03-17 12:14 | ASMTLACE ---
LACE Length of stay for Answers: 14 days or more current admission Acuity / Level of Answers: Yes Care: Did the patient have an inpatient admission? Comorbidities - select Answers: Chronic pulmonary disease all that apply Mild liver or renal disease Opioid dependence / Chronic pain Other Notes: HTN; HLD # of Emergency department Answers: 3-4 visits in the last 6 months Score: 22 Date Signed: 03/17/2018 12:13 PM Electronically Signed By:Annalise Ennis
--- NOTE | 2018-03-17 12:16 | ASMTDCNOTE ---
Case Management Discharge Discharge Order Complete? Answers: Yes Patient to Obtain Answers: Other Notes: [facility] Medications Transportation Arranged Answers: Other Notes: [facility] will Pick (Date 03/17/2018 12:00 AM & Time) Faxed Final Orders Answers: Yes Agency/Facility Transfer Answers: Yes Report Printed & Faxed to Receiving Agency Family Notified Answers: Yes Discharge Comments Notes: D/C to [facility] Date Signed: 03/17/2018 12:15 PM Electronically Signed By:Annalise Ennis
--- NOTE | 2018-03-17 16:07 | ASMTCMCOM ---
CM Note CM Note Notes: [facility] notified of pt's d/c to [facility] today. D/C Plan: [facility] Date Signed: 03/17/2018 04:06 PM Electronically Signed By:Annalise Ennis
--- NOTE | 2018-03-17 17:39 | SOAPPROG ---
SOAP Progress Note Assessment/Plan: Assessment: 82 M with COPD and two recent hospital admissions for CAP, admitted with sudden onset CP and SOB. CXR revealed moderate PTX and a chest tube was placed. This helped but he complained the next morning of increasing dyspnea so solumedrol and Zithromax were added resulting in substantial improvement. Oxygen requirements have improved. * Spontaneous PTX- his chest CT shows severe large bullous emphysema, and his likely poor lung tissue was further compromised by his recent PNA, resulting in high risk for PTX. Chest tube removed 03/07. No sig PTX on subsequent CXRs * COPD with exacerbation: This has improved with the addition of prednisone and PO azithromycin to complete a 5-day course. Cough resolved. Continues to have hypoxemia with exertion. Oxygen flow down to 3-4 L/minute when at rest. * Hypoxemia- 2/2 COPD/emphysema. Oxygen being titrated to sat >88%. No evidence of chronic CO2 retention. Elevated BNP likely due to pulmonary hypertension, but also could be related to some mild fluid overload. Has diuresed about 1.5 L and BNP normalized. * Tachycardia- Resolved * C diff- started treatment at SNF and completed therapy. Remains on contact precautions. Plan: Continue to taper Prednisone slowly, continue bronchopulmonary therapies , Advair, Mucinex. Transfer to SNF today. Follow-up with myself or Dr. Pimentel as an outpatient in approximately 2 weeks. Discussed with the patient and his friends. Subjective: Doing well. Anxious to leave hospital. Friends at bedside. On 3-4 L at rest, 7 L with exertion. Objective: Vital Signs Temp Pulse Resp BP Pulse Ox 36.7 C 76 20 118/71 91 L 03/17/18 11:20 03/17/18 11:40 03/17/18 11:40 03/17/18 11:20 03/17/18 11:40 Laboratory Results 03/09/18 03:38 03/17/18 03:49 03/16/18 03/17/18 03/18/18 05:59 05:59 05:59 Intake Total 1000 325 Output Total 1200 950 125 Balance -200 -625 -125 Physical Exam - Physical Exam General Appearance: alert, no apparent distress EENT: other (Nasal cannula in place) Neck: normal inspection (No JVD) Respiratory: lungs clear (Anteriorly), decreased breath sounds (Bilaterally), prolonged expiration, No rales, No rhonchi, No wheezing Cardiac/Chest: regular rate, rhythm Abdomen: normal bowel sounds, non-tender, soft Skin: normal color, warm/dry Extremities: No pedal edema Neuro/Psych: no motor/sensory deficits, No cognition abnormalities ICD10 Worksheet Patient Problems: Problems Problem Status Onset Acute respiratory failure with hypoxia Acute Chronic Disease [facility]/Transitional Care Acute Emphysema lung Acute Hypoxia Acute Interstitial edema Acute Non-traumatic compression fracture of T9 thoracic vertebra Acute Pneumonia Acute Pneumothorax, right Acute Sepsis Acute
--- NOTE | 2018-03-19 09:53 | ASDISCHSUM ---
Discharge Information Plan Status:SNF Medically Cleared to Leave:03/16/2018 Discharge Date:03/17/2018 04:24 PM D/C Disposition:Group Home Facility ADT D/C Disposition:Group Home Facility Projected Discharge Date:03/07/2018 11:00 AM Transportation at D/C:Wheelchair Van Discharge Delay Reason: Follow-Up Date:03/07/2018 11:00 AM Discharge Slot: Final Diagnosis:Spontaneous pneumothorax Placement Information Referral Type:*Correction/SNF Referral ID:[id number] Provider Name:[facility] [place] Address 1:[address] Address 2: City:[place] Selection Factors: State:[place] Referral Type:Palliative Care Referral ID:[id number] Provider Name:[facility] Address 1:[address] Phone Number: Address 2: Fax Number: [facility]:[place] Selection Factors: State:[place] Patient Contact Information Contact Name:JOSE ARMANDO Relationship:Sister Address:[address] [place] [address] Work Phone: City:[place] Alternate Phone: [facility]/Zip Code:[place] [address] Email: Financial Information Financial Class:Medicare Primary Plan Desc:MEDICARE INPATIENT Primary Plan Number:[id number] Secondary Plan Desc:DELIA Secondary Plan Number:[id number] Assessment Information LACE LACE Length of stay for Answers: 14 days or more current admission Acuity / Level of Answers: Yes Care: Did the patient have an inpatient admission? Comorbidities - select Answers: Chronic pulmonary disease all that apply Mild liver or renal disease Opioid dependence / Chronic pain Other Notes: HTN; HLD # of Emergency department Answers: 3-4 visits in the last 6 months Score: 22 Date Signed: 03/17/2018 12:13 PM Electronically Signed By:Annalise Ennis [facility] CM Progress Note CM Note CM Note Notes: 82yo male had been admitted to [facility] on 01/13 for PNA and 01/26 for Sepsis and PNA. Present admit for Spontaneous pneumothorax. He has a Hx of COPD, Chronic resp failure, Urinary retention, Ulcerative colitis, HTN, BPH. Was recently at [facility]. We talked about possibly trying out [facility]. He is in conversation with [facility] for LTC or [facility] depending on his needs after Rehab. Patient is currently on 15 lits of O2. Talked about a Palliative consult during ICU Rounds. Therapies to eval. CM to follow. Date Signed: 03/03/2018 12:24 PM Electronically Signed By:Ramya Olivares LCSW [facility] CM Progress Note CM Note CM Note Notes: Pts case discussed in tx rounds. Therapies are recommending [facility]. Pt does not mind going back to [facility]. Pt had a couple of questions; will he have the suction available at [facility], would he will under precaution and confined to his room to do therapies. CM asked Katerine from [facility] these questions. Katerine will get back to . CM to follow. Plan: [facility] w/ [facility] Date Signed: 03/06/2018 03:17 PM Electronically Signed By:SENG Gama [facility] CM Progress Note CM Note CM Note Notes: Call from [facility] - patient was enrolled in homecare with them after he d/c'ed from [facility] 02/24/18. I let them know that he will likely d/c from hospital to SNF. I also sent a referral to [facility] - per chart review, they opened patient 02/27 and were planning to see him on 03/10 at home. Patient will d/c to [facility] SNF - there are some questions remaining about whether he will d/c on Vanco/contact precautions for C Diff, and I have not been able to get an answer about this. We will need to let [facility] know this information prior to d/c. Patient agrees to plan. Case Management will follow. Date Signed: 03/07/2018 01:31 PM Electronically Signed By:Elena Tan RN [facility] Progress Note CM Note CM Note Notes: CM spoke with RN, date of discharge TBD. Oxygen needs are high. Vancomycin was discontinued, contact precautions likely not required at discharge.Per chart review [facility] opened on 02/27, scheduled to see patient 03/10. CM to follow. Current D/C Plan: [facility] SNF, date TBD. Date Signed: 03/08/2018 04:20 PM Electronically Signed By:Italia Jeffries [facility] CM Progress Note CM Note CM Note Notes: 03/11/2018 Case Management Note Faxed updates to [facility] in [place]. [facility] is following pt. Case Management d/c poc: [facility] SNF rehab Case Management to follow. Date Signed: 03/11/2018 02:56 PM Electronically Signed By:[place] Edwards RN [facility] CM Progress Note CM Note CM Note Notes: 03/12/2018 Case Management Note Met w/pt, son, family friend and sister to discuss d/c needs. [facility] [place] has accepted pt but requires O2 use be below 8L. Informed pt. Discussed plans for after SNF rehab. Pt is considering 2 plans. Plan 1) return home with 24/7 care and resuming [facility]. Provided information on agencies that provide 24 hour care. Plan 2) move to [facility]. [place] told pt oxygen needs are too high for assisted living. Pt will share a room in detention care. Discussed benefits of [facility]. Pt is pleased with care from [facility]. Case Management d/c poc: [facility] [place] when O2 needs decrease. Case Management to follow. Date Signed: 03/12/2018 12:17 PM Electronically Signed By:Florida Edwards RN [facility] CM Progress Note CM Note CM Note Notes: Discussed w hospitalist: patient will be ready for discharge in 1-2 days. Called [facility], [facility], and [facility] to provide updates. Plan is for d/c [facility]F with [facility] following. Date Signed: 03/14/2018 01:29 PM Electronically Signed By:Elena Tan RN Case Management Discharge Plan Note Case Management Discharge Discharge Order Complete? Answers: Yes Patient to Obtain Answers: Other Notes: [facility] [place] Medic[facility] Transportation Arranged Answers: Other Notes: [facility] will Pick (Date 03/17/2018 12:00 AM & Time) Faxed Final Orders Answers: Yes Agency/Facility Transfer Answers: Yes Report Printed & Faxed to Receiving Agency Family Notified Answers: Yes Discharge Comments Notes: D/C to [facility] Date Signed: 03/17/2018 12:15 PM Electronically Signed By:Annalise Ennis [facility] CM Progress Note CM Note CM Note Notes: [facility] notified of pt's d/c to [facility] today. D/C Plan: [facility] Date Signed: 03/17/2018 04:06 PM Electronically Signed By:Annalise Ennis Intervention Information Intervention Type:*Incorrect Registration Date of Service:03/02/2018 03:08 PM Patient Type:Observation Staff Member:Kym Lamb Hours: Discipline: Severity: Comment: Intervention Type:*IM-Signed Date of Service:03/17/2018 02:33 PM Patient Type:Inpatient Staff Member:Hayley Pereira Hours: Discipline: Severity: Comment:
== END 2018-03-17 16:24 | DRG 199 ==
LOC: OBSVTOIN 12:20 → F2N 13:20 → F2W 03-05 20:33
PROVIDERS: ADMIT Internal Medicine; ATTEND Internal Medicine
PROC: 0W9930Z Drainage of Right Pleural Cavity with Drainage Device, Percutaneous Approach (ICD-10-PCS; principal; 2018-03-02)
DX: J93.83 Other pneumothorax (principal); J43.9 Emphysema, unspecified; J96.21 Acute and chronic respiratory failure with hypoxia; A04.71 Enterocolitis due to Clostridium difficile, recurrent; I47.2 Ventricular tachycardia; K51.90 Ulcerative colitis, unspecified, without complications; I12.9 Hypertensive chronic kidney disease with stage 1 through stage 4 chronic kidney disease, or unspecified chronic kidney disease; E78.5 Hyperlipidemia, unspecified; N18.1 Chronic kidney disease, stage 1; M48.54XD Collapsed vertebra, not elsewhere classified, thoracic region, subsequent encounter for fracture with routine healing; N40.0 Benign prostatic hyperplasia without lower urinary tract symptoms; Z98.1 Arthrodesis status
CPT/HCPCS: 84484-PO; 92526-GN; 92610-GN; 97116-GP; 97162-GP; 97166-GO; 97530-GO; 97530-GP; 97535-GO; G8978-GP-CK; G8979-GP-CJ; G8987-GO-CM; G8988-GO-CJ; G8996-GN-CH; G8996-GN-CI; G8997-GN-CH; G8998-GN-CH; J0456; J1650; J1885; J1940; J2930; J3010; J7512; J7608; Q9967

== ENCOUNTER → 2018-03-02 | Outpatient (CLI) | payer OTHER | LOC: FIMAGING 08:52 | PROVIDERS: ATTEND Internal Medicine Critical Care Medicine | DX: Z09 Encounter for follow-up examination after completed treatment for conditions other than malignant neoplasm (principal); J18.9 Pneumonia, unspecified organism ==

== ENCOUNTER → 2018-05-13 | Outpatient (CLI) | payer OTHER | LOC: FIMAGING 13:00 | PROVIDERS: ATTEND Internal Medicine Critical Care Medicine | DX: J84.9 Interstitial pulmonary disease, unspecified (principal); J43.9 Emphysema, unspecified ==

== ENCOUNTER → 2018-09-17 | Outpatient (CLI) | payer OTHER | LOC: FIMAGING 17:40 | DX: M54.40 Lumbago with sciatica, unspecified side (principal); M48.02 Spinal stenosis, cervical region; G89.29 Other chronic pain ==